=== PATIENT | female | born 1955 | race Caucasian/White ===

== ENCOUNTER 2020-05-17 12:19 | Outpatient (REF) | payer OTHER, SELFPAY ==
--- NOTE | 2020-05-17 | US_ITS ---
EXAMINATION: US THYROID CLINICAL INFORMATION: Single thyroid nodule, left, follow-up. History of right thyroidectomy. COMPARISON: Ultrasound soft tissue head/neck most recent dated 06/14/2017 TECHNIQUE: Linear transducer banks-scale and color Doppler examination with attention to the region of the left thyroid. FINDINGS: SIZE: Measurements of the thyroid lobes and nodules are given in sagittal, anteroposterior and transverse dimensions respectively. Right Thyroid Lobe: Surgically removed. Left Thyroid Lobe: 3.6 x 1.0 x 1.1 cm, volume 2.1 mL. Previously 3.7 x 1.0 x 1.1 cm, volume 2.1 mL. Parenchyma: The gland echotexture is homogeneous. Thyroid vascularity is normal. Isthmus: 0.1 cm in maximum AP dimension. Previously 0.1 cm. RIGHT THYROID LOBE: Surgically removed. ISTHMUS: No nodules. LEFT THYROID LOBE: There is 1 nodule seen. 1. Location: Upper. Size: 0.6 x 0.4 x 0.5 cm. Previous: 0.6 x 0.4 x 0.5 cm. Nodule characteristics: Heterogeneous, smooth margin, no calcification and positive intranodular flow.. NODES: There is a right cervical lymph node that measures 1.3 x 0.3 x 0.9 cm in sagittal, AP and transverse dimension. This demonstrates normal ultrasound morphology and flow. This is similar to previous exam. IMPRESSION: Stable left thyroid nodule.
== END 2020-05-17 12:20 | disposition home or self-care (01) ==
LOC: HO.HMGCX 12:19
PROVIDERS: PCP Family Medicine; Visit Provider Family Medicine
DX: E04.1 Nontoxic single thyroid nodule (principal)
CPT/HCPCS: 76536

== ENCOUNTER 2020-06-09 07:08 | Outpatient (REF) | payer OTHER, SELFPAY ==
[2020-06-09 09:41] LABS: Alanine Aminotransferase 6 U/L (0-31); Aspartate Amino Transferase 20 U/L (5-31)
[2020-06-09 10:02] LABS: Free T4 (Free Thyroxine) 1.26 ng/dL (0.71-1.85); Thyroid Stimulating Hormone 0.34 mIU/mL (0.32-4.0)
[2020-06-10 17:32] LABS: Thyroglobulin 0.7 ng/mL; Thyroglobulin Antibodies <1 IU/mL (< or = 1)
== END 2020-06-09 07:09 | disposition home or self-care (01) ==
LOC: HO.LNP 07:08
PROVIDERS: Visit Provider Family Medicine
DX: C73 Malignant neoplasm of thyroid gland (principal); E03.9 Hypothyroidism, unspecified; E78.00 Pure hypercholesterolemia, unspecified; Z79.899 Other long term (current) drug therapy
CPT/HCPCS: 36415; 82550; 84432; 84439; 84443; 84450; 84460; 86800

== ENCOUNTER 2020-07-17 07:17 | Outpatient (REF) | payer OTHER, SELFPAY ==
--- NOTE | 2020-07-17 | MM_ITS ---
EXAMINATION: MM SCREENING DIGITAL BREAST TOMOSYNTHESIS, BILATERAL CLINICAL INFORMATION: Screening. Asymptomatic. The lifetime risk of breast cancer based on the Tyrer-Cuzick Model is 11%. COMPARISON: Mammography: 06/26/2019, 06/08/2018, 06/02/2017 TECHNIQUE: Digital breast tomosynthesis is performed in both the craniocaudal and mediolateral oblique views along with computer-aided detection (CAD). Synthesized 2D images are generated from the tomosynthesis. FINDINGS: The breasts are almost entirely fatty (ACR BI-RADS breast composition Category a). Background stromal markings are stable. There is stable circumscribed nodule mid upper outer left breast and mid 9:30 o'clock right breast. There is no significant mass or developing density. No architectural abnormality or abnormal calcifications. The axilla are unremarkable. No significant changes. MM/MM tomosynthesis screening BI IMPRESSION: No mammographic evidence of malignancy. ASSESSMENT: BI-RADS 2: Benign RECOMMENDATION: Routine annual mammography screening. This patient's information was entered into a reminder system with a target due date for their next mammogram.
== END 2020-07-17 07:18 | disposition home or self-care (01) ==
LOC: HO.MAMMO 07:17
PROVIDERS: PCP Family Medicine; Visit Provider Family Medicine
DX: Z12.31 Encounter for screening mammogram for malignant neoplasm of breast (principal)
CPT/HCPCS: 77063; 77067

== ENCOUNTER 2020-08-30 08:04 | Day surgery (SDC) | payer OTHER, SELFPAY ==
[2020-07-22 10:39] VITALS: BMI 28.8
--- NOTE | 2020-08-27 10:14 | P.CONAN_ITS ---
Documented by User: Natali Alcazar 08/27/20 10:14 HPI - Anesthesia Eval Consult details Narrative: 65yo F for Colonoscopy PMFSH Past Medical History Medical History Elevated cholesterol GERD (gastroesophageal reflux disease) Hiatal hernia Hypertension Parkinsons disease Psoriatic arthritis Thyroid cancer Surgical History Surgical History Hx of colonoscopy Hx of dilation and curettage Hx of endoscopy Hx of partial thyroidectomy Hx of tonsillectomy Social History Social History Are you a primary acute care physical therapist to a significant other at home: No Do you presently have visiting nurse or other home services: No Smoking Status: Former smoker Smoking Quit Date: 40 yrs ago Use of substances other than those prescribed or required for medical reasons: No Have you been hit, kicked, punched, or otherwise hurt by someone within the past year? If so, by whom?: No Advance Directives: No Advance Directives Information Provided: No Advance Directives on File: No Recently lost weight without trying: No Meds Allergies Allergy/AdvReac Type Severity Reaction Status Date / Time codeine Allergy Unknown Nausea and Uncoded 08/24/20 12:25 Vomiting ibuprofen Allergy Unknown Nightmare Uncoded 08/24/20 12:25 shell fish Allergy Unknown Hives Uncoded 08/24/20 12:25 Home Medications Medication Instructions Recorded Confirmed Type acetaminophen 500 mg PO QID PRN 07/22/20 07/22/20 History atenolol 1 tab PO DAILY 07/22/20 07/22/20 History carbidopa-levodopa 1.5 tab PO QID 07/22/20 07/22/20 History coenzyme Q10 [CoQ-10] 100 mg PO DAILY 07/22/20 07/22/20 History levothyroxine 1 tab PO DAILY 07/22/20 07/22/20 History omeprazole 1 cap PO DAILY 07/22/20 07/22/20 History simvastatin 1 tab PO DAILY 07/22/20 07/22/20 History Exam Exam Date and Time: August 27, 2020 1014 Height,Weight and Vital Signs: Height 5 ft 0.75 in Weight 68.492 kg Assessment and Plan Assessment Anesthesia Assessment: Chart Reviewed Documented by User: Radha Wilson 08/30/20 09:38 PMFSH Past Medical History Medical History Elevated cholesterol GERD (gastroesophageal reflux disease) Hiatal hernia Hypertension Parkinsons disease Psoriatic arthritis Thyroid cancer Family History Family history of problems with anesthesia: No Surgical History Surgical History Hx of colonoscopy Hx of dilation and curettage Hx of endoscopy Hx of partial thyroidectomy Hx of tonsillectomy History of Problems with Anesthesia: Yes (PONV many years ago, never with colonoscopies) Social History Social History Are you a primary acute care physical therapist to a significant other at home: No Do you presently have visiting nurse or other home services: No Smoking Status: Former smoker Smoking Quit Date: 40 yrs ago Use of substances other than those prescribed or required for medical reasons: No Have you been hit, kicked, punched, or otherwise hurt by someone within the past year? If so, by whom?: No Advance Directives: No Advance Directives Information Provided: No Advance Directives on File: No Recently lost weight without trying: No Meds Allergies Allergy/AdvReac Type Severity Reaction Status Date / Time codeine Allergy Unknown Nausea and Uncoded 08/24/20 12:25 Vomiting ibuprofen Allergy Unknown Nightmare Uncoded 08/24/20 12:25 shell fish Allergy Unknown Hives Uncoded 08/24/20 12:25 Home Medications Medication Instructions Recorded Confirmed Type acetaminophen 500 mg PO QID PRN 07/22/20 07/22/20 History atenolol 1 tab PO DAILY 07/22/20 07/22/20 History carbidopa-levodopa 1.5 tab PO QID 07/22/20 07/22/20 History coenzyme Q10 [CoQ-10] 100 mg PO DAILY 07/22/20 07/22/20 History levothyroxine 1 tab PO DAILY 07/22/20 07/22/20 History omeprazole 1 cap PO DAILY 07/22/20 07/22/20 History simvastatin 1 tab PO DAILY 07/22/20 07/22/20 History Exam Exam Date and Time: Vital Signs Temp Pulse Resp BP Pulse Ox 08/30/20 08:46 97.7 F 79 18 151/90 H 99 Airway Mallampati Class: III (Small mouth, overbite) TM Dist: >3cm Neck ROM: Full (Some arthritis) Partial: Upper and Lower Heart: RRR Lungs: CTAB Assessment and Plan Assessment Anesthesia Assessment: Anesthesia Plan Discussed and Chart Reviewed Final Anesthetic Review NPO: Yes ASA Class: II Final Preanesthetic Review: No Changes in Pt Med Stat, Meds/Allgs Chart Reviewed, Consent Obtained/Reviewed and Anes Risks/Benef Reviewed Patient Risk: Low Procedure Risk: Low Assessment/Block/Sedation in SS: Assess/Block/Sedation-SS Anesthetic Plan Anesthetic Plan: MAC: Disposition: Standard PACU
[2020-08-30 08:46] VITALS: BP 151/90; PULSE 79; RESP 18; TEMP 36.5; O2SAT 99; BMI 27.6
[2020-08-30] MEDS: Lactated Ringers 1,000 ML 100 ML IVCONT (09:10)
--- NOTE | 2020-08-30 10:36 | PM.OP ---
Brief Operative Note Date of Service: 08/30/20 Pre-op diagnosis: Screening Post-op diagnosis: other (Diverticulosis, Internal hemorrhoids) Procedure: Colonoscopy to cecum and TI Surgeon: Zia Dowd Anesthesia: MAC Estimated blood loss (mL): 0 Pathology: none sent Condition: stable Disposition: PACU
[2020-08-30 10:37] VITALS: BP 122/79; PULSE 82; RESP 16; TEMP 36.6; O2SAT 96
[2020-08-30 10:52] VITALS: BP 119/72; PULSE 66; RESP 16; TEMP 36.6; O2SAT 100
--- NOTE | 2020-08-30 11:11 | OP_ITS ---
SURGEON: Zia Dowd MD INDICATIONS: The patient presents for evaluation of colorectal cancer screening and personal history of tubular adenoma of the colon. Full consent has been obtained from her for this, including risks of bleeding and perforation. PREOPERATIVE DIAGNOSIS: POSTOPERATIVE DIAGNOSIS: PROCEDURE PERFORMED: Colonoscopy to cecum and terminal ileum. ESTIMATED BLOOD LOSS: COMPLICATIONS: ANESTHESIA: Monitored anesthesia care. ASSISTANTS: SPECIMENS: PREOPERATIVE DIAGNOSES: Colorectal cancer screening and personal history of tubular adenoma of the colon. POSTOPERATIVE DIAGNOSES: Colorectal cancer screening and personal history of tubular adenoma of the colon, sigmoid diverticulosis, and internal hemorrhoids. DESCRIPTION OF PROCEDURE: The patient was placed in the left lateral decubitus position. The digital rectal exam revealed no abnormalities. The Olympus video pediatric colonoscope was entered into the rectum and advanced to the cecum with the assistance of abdominal wall pressure. Once in the cecum, I did identify normal-appearing cecal pouch with appendiceal orifice and a normal-appearing ileocecal valve. The terminal ileum was cannulated and appeared normal. The scope was withdrawn back in the colon. The entire cecum and ileocecal valve appeared normal. The scope was slowly withdrawn assessing all mucosal surfaces carefully. Preparation was excellent. I did not visualize any sign of polyps, colitis, or angiodysplasia. There was a moderate amount of sigmoid diverticulosis. In the rectum, scope was retroflexed visualizing small internal hemorrhoids, but no other pathology. The rectal mucosa appeared normal. The scope was straightened out and withdrawn from the patient. She tolerated the procedure well and was returned to recovery area in stable condition. IMPRESSION: 1. Diverticulosis. 2. Internal hemorrhoids. PLAN: Given her previous history, I would recommend a followup colonoscopy in 5 years for further screening. She will otherwise see me on a p.r.n. basis. MD MARTINEZ Hubbard/TIMOTHY / [id number]
--- NOTE | 2020-08-30 11:50 | HO.POSTANES ---
Post Anesthesia Evaluation Post Anesthesia Evaluation Vital Signs: Vital Signs Temp Pulse Resp BP Pulse Ox 08/30/20 10:52 98 F 66 16 119/72 100 08/30/20 10:37 98 F 82 16 122/79 96 08/30/20 08:46 97.7 F 79 18 151/90 H 99 Anesthesia: Monitored Mental Status: Awake Pain Control: Satisfactory Nausea/Vomiting: None Hydration: Adequate Anesthesia-Related Issues: No Anes. Related Issues
== END 2020-08-30 11:54 | disposition home or self-care (01) ==
PROVIDERS: PCP Family Medicine; Visit Provider Internal Medicine
PROC: 0DJD8ZZ Inspection of Lower Intestinal Tract, Via Natural or Artificial Opening Endoscopic (ICD-10-PCS; CPT 45378; principal; 2020-08-30 09:40)
DX: Z12.11 Encounter for screening for malignant neoplasm of colon (principal); Z86.010 Personal history of colon polyps; K57.30 Diverticulosis of large intestine without perforation or abscess without bleeding; K64.8 Other hemorrhoids; K21.9 Gastro-esophageal reflux disease without esophagitis; G20 Parkinson's disease; I10 Essential (primary) hypertension; L40.50 Arthropathic psoriasis, unspecified; Z85.850 Personal history of malignant neoplasm of thyroid; Z87.891 Personal history of nicotine dependence; Z79.899 Other long term (current) drug therapy; Z88.8 Allergy status to other drugs, medicaments and biological substances
CPT/HCPCS: 45378

== ENCOUNTER 2021-01-10 11:53 | Outpatient (REF) | payer OTHER, SELFPAY ==
[2021-01-10 14:47] LABS: Alanine Aminotransferase < 6 U/L (0-31); Anion Gap 13 (12-20); Blood Urea Nitrogen 17 mg/dL (9-16); Carbon Dioxide 28 mmol/L (22-29); Chloride 105 mmol/L (96-108); Estimated Glomerular Filt Rate > 60; Potassium 4.6 mmol/L (3.3-5.1); Sodium 141 mmol/L (135-145)
[2021-01-10 15:10] LABS: Free T4 (Free Thyroxine) 1.35 ng/dL (0.71-1.85); Thyroid Stimulating Hormone 0.15 uIU/mL (0.32-4.0)
[2021-01-12 06:21] LABS: Thyroglobulin 0.7 ng/mL
== END 2021-01-10 11:54 | disposition home or self-care (01) ==
LOC: HO.HMGCLDS 11:53
PROVIDERS: PCP Family Medicine; Visit Provider Family Medicine
DX: C73 Malignant neoplasm of thyroid gland (principal); I10 Essential (primary) hypertension; E78.00 Pure hypercholesterolemia, unspecified; Z79.899 Other long term (current) drug therapy
CPT/HCPCS: 36415; 80051; 82550; 82565; 84432; 84439; 84443; 84460; 84520

== ENCOUNTER 2021-08-24 08:16 | Outpatient (REF) | payer OTHER, SELFPAY ==
--- NOTE | ~2021-08-24 | MM_ITS ---
EXAMINATION: MM SCREENING DIGITAL BREAST TOMOSYNTHESIS, BILATERAL CLINICAL INFORMATION: Screening. Asymptomatic. The lifetime risk of breast cancer based on the Tyrer-Cuzick Model is 10%. COMPARISON: Mammography: 07/17/2020, 06/26/2019, 06/08/2018 TECHNIQUE: Digital breast tomosynthesis is performed in both the craniocaudal and mediolateral oblique views along with computer-aided detection (CAD). Synthesized 2D images are generated from the tomosynthesis. FINDINGS: The breasts are almost entirely fatty (ACR BI-RADS breast composition Category a). Parenchymal pattern is similar to prior studies. There is no developing density or architectural abnormality. Background stromal markings are stable. The axilla and skin contours are unremarkable. No significant changes. MM/MM tomosynthesis screening BI IMPRESSION: No mammographic evidence of malignancy. ASSESSMENT: BI-RADS 1: Negative RECOMMENDATION: Routine annual mammography screening. This patient's information was entered into a reminder system with a target due date for their next mammogram.
== END 2021-08-24 08:17 | disposition home or self-care (01) ==
LOC: HO.MAMMO 08:16
PROVIDERS: Visit Provider Family Medicine
DX: Z12.31 Encounter for screening mammogram for malignant neoplasm of breast (principal)
CPT/HCPCS: 77063; 77067

== ENCOUNTER 2021-08-30 06:09 | Outpatient (REF) | payer OTHER, SELFPAY ==
[2021-08-30 12:10] LABS: Free T4 (Free Thyroxine) 1.22 ng/dL (0.71-1.85); Thyroid Stimulating Hormone 0.27 uIU/mL (0.32-4.0)
[2021-08-30 12:14] LABS: Anion Gap 11 (12-20); Blood Urea Nitrogen 16 mg/dL (9-16); Carbon Dioxide 29 mmol/L (22-29); Chloride 107 mmol/L (96-108); Estimated Glomerular Filt Rate > 60; Potassium 4.2 mmol/L (3.3-5.1); Sodium 143 mmol/L (135-145)
== END 2021-08-30 06:10 | disposition home or self-care (01) ==
LOC: HO.HMGCLDS 06:09
PROVIDERS: Visit Provider Family Medicine
DX: E03.9 Hypothyroidism, unspecified (principal); I10 Essential (primary) hypertension
CPT/HCPCS: 36415; 80051; 82565; 84439; 84443; 84520

== ENCOUNTER 2021-12-02 10:16 | Outpatient (REF) | payer OTHER, SELFPAY ==
--- NOTE | ~2021-12-02 | XR_ITS ---
EXAMINATION: XR CHEST CLINICAL INFORMATION: Shortness breath. COMPARISON: 07/13/2008 TECHNIQUE: 2 views of the chest were obtained. FINDINGS: There appears to be eventration of the posterior left hemidiaphragm with stomach bubble just below the diaphragm. This was not present on prior study of 07/13/2008. There appears to be some atelectatic change related to this within the left lower lobe. No mediastinal shift is appreciated. Heart normal size. No pneumothorax or pleural effusion. Patient status post previous anterior mediastinal surgery which was not seen on study of 07/13/2008 and question of eventration related to phrenic nerve could be considered. Heart normal size. No pneumothorax or pleural effusion. No evidence of pulmonary edema. XR/XR chest 2V IMPRESSION: Eventration of the posterior left hemidiaphragm that was not present on study of 07/13/2008 as described.
[2021-12-02 11:22] LABS: MANUAL DIFF FLAG NO
[2021-12-02 11:36] LABS: Basophils Percent Auto 0.4 % (0-2); Eosinophils Absolute Auto 0.2 X10*3/uL (0.0-0.4); Eosinophils Percent Auto 2.4 % (0-4); Hematocrit 39.6 % (37.0-47.0); Hemoglobin 12.8 g/dl (12.0-16.0); Imm Gran Abs Auto 0.04 X10*3/uL (0.00-0.03); Imm Gran Pct Auto 0.4 % (0.0-0.4); Lymphocytes Absolute Auto 3.3 X10*3/uL (1.2-4.9); Lymphocytes Percent Auto 35.9 % (20-40); Mean Corpuscular HGB Conc 32.3 g/dl (31.0-35.0); Mean Corpuscular Volume 92.7 fL (80.0-98.0); Monocytes Absolute Auto 0.7 X10*3/uL (0.1-1.2); Monocytes Percent Auto 7.3 % (2-11); Neutrophils Absolute Auto 4.9 x10*3/uL (2.0-8.3); Neutrophils Percent Auto 53.6 % (45-73); Platelet Count 269 X10*3/uL (160-400); Red Blood Count 4.27 X10*6/uL (4.20-5.50); Red Cell Distribution Width 12.9 % (11.0-16.0); White Blood Count 9.2 X10*3/uL (4.8-10.8)
== END 2021-12-02 10:17 | disposition home or self-care (01) ==
LOC: HO.HMGCLDS 10:16
PROVIDERS: Visit Provider Family Medicine
DX: R06.02 Shortness of breath (principal); U07.1 COVID-19
CPT/HCPCS: 36415; 71046; 85025

== ENCOUNTER → 2021-12-16 08:42 | Outpatient (BNVA) | payer OTHER, SELFPAY | PROVIDERS: PCP Family Medicine; Visit Provider Surgery | DX: J98.6 Disorders of diaphragm (principal) | CPT/HCPCS: 99202 ==

== ENCOUNTER 2021-12-19 12:36 | Outpatient (REF) | payer OTHER, SELFPAY ==
--- NOTE | ~2021-12-19 | FL_ITS ---
EXAMINATION: XR FLUOROSCOPY CLINICAL INFORMATION: Sniff test. Evaluate diaphragmatic paralysis. COMPARISON: None TECHNIQUE: Several images were obtained with fluoroscopy in AP and lateral views. FINDINGS: There is elevation of left posterior hemidiaphragm with normal movement on deep inspiration, expiration and sniffing. The right diaphragm is normal. FLUOROSCOPY TIME: 0.6 minutes. DOSE AREA PRODUCT: 7.067 uGy-m2 (microgray-meter squared) FL/FL fluoroscopy <1hr IMPRESSION: Mild eventration of left posterior hemidiaphragm. There is normal one interspace movement of the left hemidiaphragm on deep inspiration and expiration as well as on sniffing. The right and left anterior diaphragm is normal.
== END 2021-12-19 12:37 | disposition home or self-care (01) ==
LOC: HO.XRAY 12:36
PROVIDERS: PCP Family Medicine; Visit Provider Surgery
DX: J98.6 Disorders of diaphragm (principal)
CPT/HCPCS: 76000

== ENCOUNTER 2021-12-26 09:41 | Outpatient (REF) | payer OTHER, SELFPAY ==
--- NOTE | ~2021-12-26 | CT_ITS ---
EXAMINATION: CT CHEST WITHOUT CONTRAST CLINICAL INFORMATION: Disorder of diaphragm COMPARISON: Previous chest x-ray November 2021 TECHNIQUE: Multidetector volumetric CT imaging of the chest was done. Axial MIP volume rendering provided. Sagittal and coronal reformatted images were obtained. This CT examination was performed using dose optimization techniques as appropriate, variously including the following: *Automated exposure control *Adjustment of mA and/or kV according to patient size (this includes techniques or standardized protocols for targeted exams where dose is matched to indication/reason for exam; i.e. extremities or head) *Use of iterative reconstruction technique DLP: 131 mGy-cm FINDINGS: DEV MANAGER: Large esophageal hernia or intrathoracic stomach. LUNGS: There is a large esophageal hernia or intrathoracic stomach. There is atelectasis in the left lower lobe adjacent to the large hernia. The lungs are otherwise clear. MEDIASTINUM: The thyroid gland has been removed. The mediastinum is normal. PLEURA: There is no pleural effusion. No pleural mass or thickening. AXILLA: No lymphadenopathy. UPPER ABDOMEN: There are multiple liver cysts. There is a large esophageal hernia or intrathoracic stomach. OSSEOUS STRUCTURES: Unremarkable. CT/CT chest wo con IMPRESSION: Large esophageal hernia or intrathoracic stomach. Atelectasis of the adjacent left lower lobe. Postthyroidectomy. Multiple liver cysts. Fleischner guidelines were followed.
== END 2021-12-26 09:42 | disposition home or self-care (01) ==
LOC: HO.CT 09:41
PROVIDERS: PCP Family Medicine; Visit Provider Surgery
DX: J98.6 Disorders of diaphragm (principal)
CPT/HCPCS: 71250

== ENCOUNTER 2022-01-06 08:46 | Outpatient (REF) | payer OTHER, SELFPAY ==
--- NOTE | 2022-01-06 11:37 | PFT_ITS ---
Forced vital capacity 70%. FEV1 79%. FEV1/FVC ratio is 86. FEF 25-75 is 107% and MVV 77%. Postbronchodilator therapy, there is no significant improvement. Total lung capacity 71% and residual volume 67%. Diffusion capacity 68%. CONCLUSION: [id number] degree of restrictive pulmonary disorder. No obstructive airway disorder. Clinical correlation recommended. MD MATT Hope/MODL / [id number]
== END 2022-01-06 08:47 | disposition home or self-care (01) ==
LOC: HO.RESP 08:46
PROVIDERS: PCP Family Medicine; Visit Provider Surgery
DX: J98.6 Disorders of diaphragm (principal); R06.00 Dyspnea, unspecified
CPT/HCPCS: 94060; 94729

== ENCOUNTER → 2022-01-20 09:22 | Outpatient (BNVA) | payer OTHER, SELFPAY | PROVIDERS: PCP Family Medicine; Visit Provider Surgery | DX: K44.0 Diaphragmatic hernia with obstruction, without gangrene (principal) | CPT/HCPCS: 99212 ==

== ENCOUNTER 2022-02-03 07:48 | Outpatient (REF) | payer OTHER, MEDICARE, SELFPAY ==
--- NOTE | ~2022-02-03 | FL_ITS ---
PROCEDURE: FL BARIUM SWALLOW CLINICAL INFORMATION: Diaphragmatic hernia without obstruction. COMPARISON: None TECHNIQUE: Barium swallow examination is performed using fluoroscopic evaluation in addition to multiple fluoroscopic spot views. The patient is imaged both upright and prone and using both thick and thin sulfate along with effervescent granules. Fluoroscopy time: 1.1 minutes DAP: 9.722 Gy-cm2 Images: 39 FINDINGS: Following oral administration of thick barium and effervescent granules in upright view there is normal propagation of bolus from the oral cavity through the pharynx, esophagus into stomach without any evidence of obstruction, narrowing or stricture. On administration of barium-coated turkey there is normal oral mastication with propagation of bolus through the pharynx and esophagus into stomach. No laryngeal penetration or aspiration seen. FL/FL barium swallow IMPRESSION: Unremarkable barium swallow exam in upright view.
== END 2022-02-03 07:49 | disposition home or self-care (01) ==
LOC: HO.XRAY 07:48
PROVIDERS: PCP Family Medicine; Visit Provider Surgery
DX: K44.0 Diaphragmatic hernia with obstruction, without gangrene (principal)
CPT/HCPCS: 74220

== ENCOUNTER 2022-02-08 10:27 | Day surgery (SDC) | payer OTHER, MEDICARE, SELFPAY ==
[2022-01-30 15:17] VITALS: BMI 29.8
[2022-02-08 10:59] VITALS: BMI 27.8
[2022-02-08 11:02] VITALS: BP 122/74; PULSE 69; RESP 16; TEMP 36.3; O2SAT 99
[2022-02-08] MEDS: Lactated Ringers 1,000 ML 100 ML IVCONT (11:12)
[2022-02-08 11:48] VITALS: BP 90/47; PULSE 71; RESP 16; TEMP 36.3; O2SAT 99
--- NOTE | 2022-02-08 11:51 | P.BOP_ITS ---
Brief Operative Note Date of Service: 02/08/22 Pre-op diagnosis: GERD, Hiatal hernia Post-op diagnosis: other (Same, unable to advance to pylorus due to her anatomy) Procedure: Upper endoscopy Surgeon: Zia Dowd Anesthesia: MAC Was an Fishing Tool Technician Oil Well used for this Procedure?: No Estimated blood loss (mL): 0 Pathology: none sent Condition: stable Disposition: PACU
[2022-02-08 12:03] VITALS: BP 94/58; PULSE 70; RESP 16; O2SAT 99
[2022-02-08 12:19] VITALS: BP 110/69; PULSE 71; RESP 16; TEMP 36.3; O2SAT 97
--- NOTE | 2022-02-08 21:21 | OP_ITS ---
SURGEON: Zia Dowd MD INDICATIONS: The patient presents for evaluation of a large hiatal hernia with component of intrathoracic stomach and/or a paraesophageal hernia, and reflux. Full consent has been obtained from her for this, including risks of bleeding and perforation. PREOPERATIVE DIAGNOSIS: POSTOPERATIVE DIAGNOSIS: PROCEDURE PERFORMED: Upper endoscopy. ESTIMATED BLOOD LOSS: COMPLICATIONS: ANESTHESIA: Monitored anesthesia care. ASSISTANTS: SPECIMENS: PREOPERATIVE DIAGNOSES: Intrathoracic stomach and/or Paraesophageal hernia and gastroesophageal reflux. POSTOPERATIVE DIAGNOSES: Intrathoracic stomach and/or Paraesophageal hernia and gastroesophageal reflux, unable to advance to pylorus due to her anatomy, but normal mucosa noted in the proximal stomach and esophagus. DESCRIPTION OF PROCEDURE: The patient was placed in the left lateral decubitus position. The Olympus video gastroscope was passed in the posterior oropharynx and upper esophagus under direct vision. The scope was passed slowly to the distal esophagus. The gastroesophageal junction appeared at 28 cm and appeared normal. There was no esophagitis, stricture, nor evidence of Wei mucosa. The scope entered into the stomach. There was a large hiatal hernia noted with normal mucosa. I did spend some time trying to advance to the pylorus, but this was not possible due to looping of the scope and the scope kept retroflexing within the large hernia. The retroflexed view of the stomach was normal as well. Again, the hiatal hernia mucosa was normal. After being unable to advance to the pylorus, I then withdrew the scope back into the esophagus. The esophageal mucosa appeared normal. The scope was withdrawn from the patient. She tolerated the procedure well and was returned to the recovery area in stable condition. IMPRESSION: Large hiatal hernia with inability to advance the pylorus due to her anatomy. Normal mucosa of esophagus and hiatal hernia/proximal stomach PLAN: The patient will follow up with Dr. Correa for her scheduled surgery next week. She will see me again as needed. This has been discussed with her sister. MD MARTINEZ Hubbard/TIMOTHY / [id number] MTDD
== END 2022-02-08 12:44 | disposition home or self-care (01) ==
PROVIDERS: PCP Family Medicine; Visit Provider Internal Medicine
PROC: 0DJ08ZZ Inspection of Upper Intestinal Tract, Via Natural or Artificial Opening Endoscopic (ICD-10-PCS; CPT 43235; principal; 2022-02-08 12:20)
DX: K44.9 Diaphragmatic hernia without obstruction or gangrene (principal); R93.3 Abnormal findings on diagnostic imaging of other parts of digestive tract; K21.9 Gastro-esophageal reflux disease without esophagitis; J98.6 Disorders of diaphragm; I10 Essential (primary) hypertension; L40.50 Arthropathic psoriasis, unspecified; G20 Parkinson's disease; E89.0 Postprocedural hypothyroidism; Z85.850 Personal history of malignant neoplasm of thyroid; Z87.891 Personal history of nicotine dependence; E78.5 Hyperlipidemia, unspecified; Z79.899 Other long term (current) drug therapy; Z88.8 Allergy status to other drugs, medicaments and biological substances
CPT/HCPCS: 43235

== ENCOUNTER 2022-03-08 11:30 | Outpatient (REF) | payer OTHER, MEDICARE, SELFPAY ==
[2022-03-08 14:35] LABS: Free T4 (Free Thyroxine) 1.67 ng/dL (0.71-1.85); Thyroid Stimulating Hormone 0.06 uIU/mL (0.32-4.0)
[2022-03-08 15:09] LABS: Anion Gap 15 (12-20); Blood Urea Nitrogen 14 mg/dL (9-16); Carbon Dioxide 27 mmol/L (22-29); Chloride 104 mmol/L (96-108); Estimated Glomerular Filt Rate > 60; Potassium 4.3 mmol/L (3.3-5.1); Sodium 142 mmol/L (135-145)
== END 2022-03-08 11:31 | disposition home or self-care (01) ==
LOC: HO.HMGCLDS 11:30
PROVIDERS: PCP Family Medicine; Visit Provider Family Medicine
DX: I10 Essential (primary) hypertension (principal); E03.9 Hypothyroidism, unspecified
CPT/HCPCS: 36415; 80051; 82565; 84439; 84443; 84520

== ENCOUNTER 2022-08-31 07:21 | Outpatient (REF) | payer OTHER, SELFPAY ==
--- NOTE | ~2022-08-31 | MM_ITS ---
EXAMINATION: MM SCREENING DIGITAL BREAST TOMOSYNTHESIS, BILATERAL CLINICAL INFORMATION: Screening. Asymptomatic. The lifetime risk of breast cancer based on the Tyrer-Cuzick Model is 7%. COMPARISON: Mammography: 08/24/2021, 07/17/2020, 06/26/2019 TECHNIQUE: Digital breast tomosynthesis is performed in both the craniocaudal and mediolateral oblique views along with computer-aided detection (CAD). Synthesized 2D images are generated from the tomosynthesis. FINDINGS: The breasts are almost entirely fatty (ACR BI-RADS breast composition Category a). Background stromal and fibroglandular densities are stable. There is no significant mass or architectural abnormality or abnormal calcifications. There is stable small smooth nodularity bilateral outer breasts, likely intraparenchymal nodes. The axilla and skin contours are unremarkable. No significant changes. MM/MM tomosynthesis screening BI IMPRESSION: No mammographic evidence of malignancy. ASSESSMENT: BI-RADS 2: Benign RECOMMENDATION: Routine annual mammography screening. This patient's information was entered into a reminder system with a target due date for their next mammogram.
== END 2022-08-31 07:22 | disposition home or self-care (01) ==
LOC: HO.MAMMO 07:21
PROVIDERS: Visit Provider Family Medicine
DX: Z12.31 Encounter for screening mammogram for malignant neoplasm of breast (principal)
CPT/HCPCS: 77063; 77067

== ENCOUNTER 2023-01-24 06:12 | Outpatient (REF) | payer OTHER, SELFPAY ==
[2023-01-24 12:08] LABS: Alanine Aminotransferase 8 U/L (0-31); Albumin Level 3.9 g/dL (3.5-5.0); Alkaline Phosphatase 67 U/L (39-117); Anion Gap 14 (12-20); Aspartate Amino Transferase 17 U/L (5-31); Bilirubin Direct 0.1 mg/dL (0.0-0.5); Bilirubin Total 0.5 mg/dL (0.0-1.0); Blood Urea Nitrogen 20 mg/dL (9-16); Carbon Dioxide 26 mmol/L (22-29); Chloride 108 mmol/L (96-108); Cholesterol 163 mg/dL; Estimated Glomerular Filt Rate > 60; Glucose Fasting 97 mg/dL (60-99); HDL Cholesterol 50 mg/dL; LDL Cholesterol Calculated 92 mg/dl; Potassium 3.9 mmol/L (3.3-5.1); Sodium 144 mmol/L (135-145); Total Protein 6.8 g/dL (6.5-8.0); Triglycerides 109 mg/dL
[2023-01-26 09:44] LABS: Thyroglobulin 0.8 ng/mL
== END 2023-01-24 06:13 | disposition home or self-care (01) ==
LOC: HO.HMGCLDS 06:12
PROVIDERS: PCP Family Medicine; Visit Provider Family Medicine
DX: I10 Essential (primary) hypertension (principal); E78.00 Pure hypercholesterolemia, unspecified; C73 Malignant neoplasm of thyroid gland; Z79.899 Other long term (current) drug therapy
CPT/HCPCS: 36415; 80051; 80061; 80076; 82550; 82565; 82947; 84432; 84520

== ENCOUNTER 2023-08-25 11:00 | Outpatient (REF) | payer OTHER, SELFPAY ==
[2023-08-25 13:57] LABS: Alanine Aminotransferase 7 U/L (0-31); Anion Gap 11 (12-20); Aspartate Amino Transferase 20 U/L (5-31); Blood Urea Nitrogen 17 mg/dL (9-16); Carbon Dioxide 29 mmol/L (22-29); Chloride 109 mmol/L (96-108); Potassium 4.2 mmol/L (3.3-5.1); Sodium 145 mmol/L (135-145)
[2023-08-25 14:11] LABS: Free T4 (Free Thyroxine) 1.29 ng/dL (0.71-1.85); Thyroid Stimulating Hormone 1.22 uIU/mL (0.32-4.0)
== END 2023-08-25 11:01 | disposition home or self-care (01) ==
LOC: HO.HMGCLDS 11:00
PROVIDERS: PCP Family Medicine; Visit Provider Family Medicine
DX: I10 Essential (primary) hypertension (principal); E03.9 Hypothyroidism, unspecified; E78.00 Pure hypercholesterolemia, unspecified; Z79.899 Other long term (current) drug therapy
CPT/HCPCS: 36415; 80051; 82550; 84439; 84443; 84450; 84460; 84520

== ENCOUNTER 2023-09-07 07:20 | Outpatient (REF) | payer OTHER, SELFPAY | END 2023-09-07 07:21 | disposition home or self-care (01) | LOC: HO.MAMMO 07:20 | PROVIDERS: PCP Family Medicine; Visit Provider Family Medicine | DX: Z12.31 Encounter for screening mammogram for malignant neoplasm of breast (principal) | CPT/HCPCS: 77063; 77067 ==

== ENCOUNTER → 2023-09-07 07:30 | Outpatient (BNV) | payer OTHER, SELFPAY | PROVIDERS: PCP Family Medicine; Visit Provider Radiology Diagnostic Radiology | DX: Z12.31 Encounter for screening mammogram for malignant neoplasm of breast (principal) | CPT/HCPCS: 77063; 77067 ==

== ENCOUNTER 2024-01-03 06:10 | Outpatient (REF) | payer OTHER, SELFPAY ==
[2024-01-03 11:16] LABS: Thyroid Stimulating Hormone 1.03 uIU/mL (0.32-4.0)
== END 2024-01-03 06:11 | disposition home or self-care (01) ==
LOC: HO.HMGCLDS 06:10
PROVIDERS: PCP Family Medicine; Visit Provider Family Medicine
DX: C73 Malignant neoplasm of thyroid gland (principal)
CPT/HCPCS: 36415; 84443

== ENCOUNTER 2024-05-08 10:20 | Outpatient (REF) | payer OTHER, SELFPAY ==
[2024-05-08 13:29] LABS: Anion Gap 11 (12-20); Blood Urea Nitrogen 22 mg/dL (9-16); Carbon Dioxide 29 mmol/L (22-29); Chloride 108 mmol/L (96-108); Estimated Glomerular Filt Rate > 60; Potassium 4.3 mmol/L (3.3-5.1); Sodium 144 mmol/L (135-145)
[2024-05-08 13:48] LABS: Thyroid Stimulating Hormone 0.54 uIU/mL (0.32-4.0)
== END 2024-05-08 10:21 | disposition home or self-care (01) ==
LOC: HO.HMGCLDS 10:20
PROVIDERS: PCP Family Medicine; Visit Provider Family Medicine
DX: I10 Essential (primary) hypertension (principal); E03.9 Hypothyroidism, unspecified
CPT/HCPCS: 36415; 80051; 82565; 84439; 84443; 84520

== ENCOUNTER 2024-09-16 07:18 | Outpatient (REF) | payer OTHER, SELFPAY | END 2024-09-16 07:19 | disposition home or self-care (01) | LOC: HO.MAMMO 07:18 | PROVIDERS: PCP Family Medicine; Visit Provider Family Medicine | DX: Z12.31 Encounter for screening mammogram for malignant neoplasm of breast (principal) | CPT/HCPCS: 77063; 77067 ==

== ENCOUNTER → 2024-09-16 07:30 | Outpatient (BNV) | payer OTHER, SELFPAY | PROVIDERS: PCP Family Medicine; Visit Provider Internal Medicine | DX: Z12.31 Encounter for screening mammogram for malignant neoplasm of breast (principal) | CPT/HCPCS: 77063; 77067 ==

== ENCOUNTER 2024-11-24 09:15 | Outpatient (REF) | payer OTHER, SELFPAY ==
--- OUTSIDE RECORDS SUMMARY | 2024-11-24 09:20 | XMS_ITS | Clinical Summary ---
Author Organization [facility] Address [address] [place] [address] Care Team Providers Care Manager Bank Name Role Phone Jim Jimenez Primary Care Provider [phone] Allergies Active Allergy Reactions Criticality Noted Date Comments Codeine Phosphate Vomiting 01/09/2024 Jqkybno-Aqwcjxogkj-Siu-Caff Nausea,Vomiting 12/2020 Shellfish Derived Hives 07/02/2019 Medications levothyroxine (SYNTHROID, LEVOTHROID) 75 mcg tablet 06/18/2019 Active simvastatin (ZOCOR) 40 mg tablet Take 80 mg by mouth at bed time. 06/18/2019 Active ubidecarenone (coenzyme Q10) 100 mg tablet Take 200 mg by mouth once a day. Active metoprolol succinate XL (TOPROL XL) 50 mg tablet SMARTSI Tablet(s) By Mouth Every Night 04/25/2023 Active carbidopa-levodo pa ER/CR (SINEMET ER/CR) 50-200 mg tablet Take 1 tablet by mouth 5 times a day. 150 tablet 11 07/09/2024 5 Active Active Problems Problem Noted Date Diagnosed Date Dystonia 06/13/2023 Idiopathic Parkinson's disease 07/02/2019 Immunizations Immunization Administration Dates Next Due COVID-19, Pfizer, mRNA, Biva lent Booster, PF, 30 mcg/0.3 mL dose (for age 12 y and up) 05/12/2022 Covid-19, Pfizer, mRNA, Summit valent, PF 30 mcg/0.3 mL dose (for ages 12 and older) 03/26/2021,08/24/2020,08/03/2020 Covid-19, Pfizer, mRNA, Summit valent, PF, 30 mcg/0.3 mL dose, adam-sucrose (COMIRNATY)(for ages 12 and older) 11/24/2021 Covid-19, Pfizer, mRNA, Adam -sucrose Vaccine, PF, 30 mcg/0.3 mL (for age 12 y and up) 05/26/2023 Family History Relation Name Status Comments Father Mother Social History Tobacco Use Types Packs/Day Years Used Date Smoking Tobacco: Former Cigarettes Q uit: 07/02/1984 Smokeless Tobacco: Never Tobacco Cessation:Counseling Given: Not Answered Alcohol Use Standard Drinks/Week Comments Not Currently 0 (1 standard drink = 0.6 oz pur e alcohol) Comments Unknown Sex and Gender Information Value Date Recorded Sex Assigned at Female 12/11/2019 11:00 AM EDT Legal Sex Female 4:17 AM EDT Gender Identity Female 12/11/2019 11:00 AM EDT Sexual Orientation Straight 12/11/2019 11 :01 AM EDT Last Filed Vital Signs Vital Sign Reading Time Taken Comments Blood Pressure 124/84 07/09/2024 2:33 PM EST Pulse 88 07/09/2024 2:33 PM EST Temperature 36.2 ??C (97.1 ??F) 07/09/2024 2:22 PM ES T Respiratory Rate 18 07/09/2024 2:22 PM EST Oxygen Saturation - - Inhaled Oxygen Concentration - - Weight 74.2 kg (163 lb 9.6 oz) 07/09/2024 2:22 P M EST Height 152.4 cm (5') 01/09/2024 1:25 PM EDT Body Mass Index 31.95 01/09/2024 1:25 PM EDT Plan of Treatment Upcoming Encounters Date Type Department Care Team (Late st Contact Info) Description 01/07/2025 1:00 PM EDT Office Visit [facility] [address] [place] [id number] Jacquie Dalton MD [address] [place] [address] [place] [address] Health Maintenance Due Date Last Done Comments Cologuard 1955 Colon Cancer Screening 1956 Colonoscopy 1956 FOBT / Fit Test 1956 Hepatitis C Screening 1956 Sigmoidoscopy 1956 DTaP,Tdap,and Td Vaccines (1 - Tdap) 1978 Mammogram 1996 Osteoporosis Screening 2006 Pneumococcal Vaccine: 50+ Years (1 of 1 - PCV) 2006 Zoster Vaccines (1 of 2) 2006 Alcohol/Substance Use Screening 08/06/2024 Depression Screening and Follow-Up 08/06/2024 Health Care Proxy Review 08/06/2024 Social Drivers of Health Annual Screening 08/06/2024 COVID-19 Vaccine ( season) 2024 04/26/2024, 05/26/2023, 05/12/2022, Additional history exists RSV Vaccine (60+ years old and patients) (1 - 1-dose 75+ series) 2031 Influenza Vaccine Completed 04/26/2024, , 05/12/2022, Additional history exists Hepatitis B Vaccines Aged Out No long er eligible based on patient's age to complete this topic Insurance MEDICARE [facility] Care Teams Manager Bank Relationship Specialty Start Date End Date Jim Jimenez [address] [place] [address] [place] [address] PCP - General Internal Medicine 04/29/19
--- OUTSIDE RECORDS SUMMARY | 2024-11-24 09:20 | XMS_ITS | Encounter Summary ---
Author Organization [facility] Address [address] [place] [address] Care Team Providers Care Professor Of Geography Name Role Phone Jim Jimenez Primary Care Provider [phone] Encounter Details Date Type Department Care Team (Late st Contact Info) Description 04/20/2020 myChart Message [facility] [address] [place] [address] Marce Gray MD [address] [place] [address] [place] [address] RE: Non-Urgent Medical Question Social History Tobacco Use Types Packs/Day Years Used Date Smoking Tobacco: Former Cigarettes Q uit: 07/02/1984 Smokeless Tobacco: Never Alcohol Use Standard Drinks/Week Comments Not Currently 0 (1 standard drink = 0.6 oz pur e alcohol) Comments Unknown Sex and Gender Information Value Date Recorded Sex Assigned at Female 12/11/2019 11:00 AM EDT Legal Sex Female 4:17 AM EDT Gender Identity Female 12/11/2019 11:00 AM EDT Sexual Orientation Straight 12/11/2019 11 :01 AM EDT documented as of this encounter Plan of Treatment Upcoming Encounters Date Type Department Care Team (Late st Contact Info) Description 01/07/2025 1:00 PM EDT Office Visit [facility] [address] [place] [address] Jacquie Dalton MD [address] [place] [address] [place] [address] documented as of this encounter Visit Diagnoses Not on filedocumented in this encounter Care Teams Professor Of Geography Relationship Specialty Start Date End Date Jim Jimenez [address] [place] [address] [place] [address] PCP - General Internal Medicine 04/29/19 documented as of this encounter
--- OUTSIDE RECORDS SUMMARY | 2024-11-24 09:20 | XMS_ITS | Referral Summary ---
Author Organization [facility] Address [address] [place] [address] Care Team Providers Care Auxiliary Powerplant Operator Name Role Phone Jim Jimenez Primary Care Provider [phone] Allergies Active Allergy Reactions Criticality Noted Date Comments Codeine Phosphate Vomiting 01/09/2024 Ozzpmna-Viqkvyoevr-Qyh-Caff Nausea,Vomiting 12/2020 Shellfish Derived Hives 07/02/2019 Medications [...] y and up) 05/12/2022 Covid-19, Pfizer, mRNA, Garfield valent, PF 30 mcg/0.3 mL dose (for ages 12 and older) 03/26/2021,08/24/2020,08/03/2020 Covid-19, Pfizer, mRNA, Garfield valent, PF, 30 mcg/0.3 mL dose, adam-sucrose (COMIRNATY)(for ages 12 and older) 11/24/2021 Covid-19, Pfizer, mRNA, Adam -sucrose Vaccine, PF, 30 mcg/0.3 mL (for age 12 y and up) 05/26/2023 Social History Tobacco Use Types Packs/Day Years [...] Description 01/07/2025 1:00 PM EDT Office Visit [facility] Neu[facility] [address] [place] [address] [phone] Jacquie Dalton MD [address] [place] [address] [place] [address] Insurance MEDICARE [facility] Care Teams Auxiliary Powerplant Operator Relationship Specialty Start Date End Date Jim Jimenez [address] [place] [address] [place] [address] PCP - General Internal Medicine 04/29/19
--- OUTSIDE RECORDS SUMMARY | 2024-11-24 09:20 | XMS_ITS | Encounter Summary ---
Author Organization [facility] Address [address] [place] [address] Care Team Providers Care Project Scheduler Name Role Phone Jim Jimenez Primary Care Provider [phone] Encounter Details Date Type Department Care Team (Late st Contact Info) Description 04/25/2020 Orders Only [facility] Interventional Radiology [address] [place] [address] Jaleesa Nguyen MD [address] [place] [phone] Social History Tobacco Use Types Packs/Day Years [...] Description 01/07/2025 1:00 PM EDT Office Visit [facility] Neurology Clinic [address] [place] [address] Jacquie Dalton MD [address] [facility] Internal Medicine [place], [place] [phone] documented as of this encounter Visit Diagnoses Not on filedocumented in this encounter Care Teams Project Scheduler Relationship Specialty Start Date End Date Jim Jimenez [address] [place] [address] [place] [address] PCP - General Internal Medicine 04/29/19 documented as of this encounter
--- OUTSIDE RECORDS SUMMARY | 2024-11-24 09:21 | XMS_ITS | Encounter Summary ---
Author Organization [facility] Address [address] [place] [address] Care Team Providers Care Inspector Rubber Stamp Die Name Role Phone JimenezJim Primary Care Provider [phone] Encounter Details Date Type Department Care Team (Late st Contact Info) Description 05/10/2022 myChart Message [facility] Neurology Clinic [address] [place] [address] Marce Gray MD [address] [place] [address] [place] [address] Follow up to med change Social History Tobacco Use Types Packs/Day Years [...] Description 01/07/2025 1:00 PM EDT Office Visit [facility] Neurology Clinic [address] [place] [address] Jacquie Dalton MD [address] [place] [address] Internal Medicine [place], [place] [phone] documented as of this encounter Visit Diagnoses Not on filedocumented in this encounter Care Teams Inspector Rubber Stamp Die Relationship Specialty Start Date End Date Jim Jimenez [address] [place] [address] [place] [address] PCP - General Internal Medicine 04/29/19 documented as of this encounter
--- OUTSIDE RECORDS SUMMARY | 2024-11-24 09:21 | XMS_ITS | Encounter Summary ---
Author Organization [facility] Address [address] [place] [address] Care Team Providers Care Car Changer Name Role Phone Jim Jimenez Primary Care Provider [phone] Encounter Details Date Type Department Care Team (Late st Contact Info) Description 08/03/2022 myChart Message [facility] Neurology Clinic [address] [place] [id number] Marce Gray MD [address] [place] [address] [place] [address] Clinical trials Social History Tobacco Use Types Packs/Day Years [...] Description 01/07/2025 1:00 PM EDT Office Visit [facility] Neurology [facility] [address] [place] [address] Jacquie Dalton MD [address] [place] [address] Internal Medicine [place], [place] [phone] documented as of this encounter Visit Diagnoses Not on filedocumented in this encounter Care Teams Car Changer Relationship Specialty Start Date End Date Jim Jimenez [address] [place] [address] [place] [address] PCP - General Internal Medicine 04/29/19 documented as of this encounter
--- OUTSIDE RECORDS SUMMARY | 2024-11-24 09:21 | XMS_ITS | Encounter Summary ---
Author Organization [facility] Address [address] [place] [address] Care Team Providers Care Aviation Boatswain'S Mate Name Role Phone Jim Jimenez Primary Care Provider [phone] Encounter Details Date Type Department Care Team (Late st Contact Info) Description 04/27/2022 myChart Message [facility] Neurology Clinic [address] [place] [address] Marce Gray MD [address] [place] [address] [place] [address] Off periods Social History Tobacco Use Types Packs/Day Years [...] Description 01/07/2025 1:00 PM EDT Office Visit [facility] Neurology [facility] [address] [place] [address] Jacquie Dalton MD [address] [place] [address] Internal Medicine [place], [place] [phone] documented as of this encounter Visit Diagnoses Not on filedocumented in this encounter Care Teams Aviation Boatswain'S Mate Relationship Specialty Start Date End Date Jim Jimenez [address] [place] [address] [place] [address] PCP - General Internal Medicine 04/29/19 documented as of this encounter
--- OUTSIDE RECORDS SUMMARY | 2024-11-24 09:21 | XMS_ITS | Patient Health Record ---
Author Organization [facility] Address [address] [facility] [place] [address] Care Team Providers Care Scrap Separator Name Role Phone Jim Jimenez MD Primary Care Provider Unavailab Halle Mistry Unavailable [phone] Allergies Allergen (clinical drug ingredient) Drug/Non Drug Allergy documented on EMR Reaction Allergy Type Onset Date Status Shrimp Flavor Unknown Drug Allergy Act regan codeine Codeine Unknown Drug Allergy Active Results Component Value Reference Range Notes X ray : Foot, left 3V Reviewed date:05/14/2024 03:16:03 PM Interpretation:See Examination above Performing Lab: Notes/Report: See Examination above X ray : Foot, left 3V Reviewed date:06/10/2024 12:13:58 PM Interpretation:See Examination above Performing Lab: Notes/Report: See Examination above Reason For Referral No Information Medications Medication SIG (Take, Route, Fr equency, Duration) Notes Start Date End Date Status Zocor 40 MG 1 tablet in the even ing Orally Once a day Active Synthroid Active Sinemet Active Metoprolol Succinate Active Social History Tobacco Use: Social History Observation Description Date Details (start date - stop date) Never Smoker NA - NA Alcohol Screen Question Answer Notes Did you have a drink containing alcohol in the p ast year? No Points 0 Interpretation Negative Tobacco use other than smoking: Question Answer Notes Are you an other tobacco user? No Tobacco Control (Standard) Question Answer Notes Tobacco use: Nonsmoker Problems Problem Type SNOMED Code ICD Code Onset Dates Problem Status W/U Status Risk Notes Problem Acquired cavus deformity of right foot (disorder) (8419899567397 102) Cavus deformity of right foot (Q66.71) Active confirmed Vital Signs Blood pressure diastolic 70 mm Hg 08/13/2024 Height 5ft in 08/13/2024 Blood pressure systolic 112 mm Hg 08/13/2024 Weight 160 lbs 08/13/2024 BMI 31.24 kg/m2 08/13/2024 Encounters Encounter Location Date Provider Diagnosis [address] [address] 05/14/2024 Halle Black Peroneal tendinitis of left lower extremity M76.72 ; Stress fracture of left foot, initial encounter M84.375A ; Localized edema R60.0 ; Parkinson's disease with fluctuating manifestations, unspecified whether dyskinesia present G20.A2 and Pain in left foot M79.[address] [address] 06/10/2024 Halle Black Peroneal tendinitis of left lower extremity M76.72 ; Localized edema R60.0 ; Parkinson's disease with fluctuating manifestations, unspecified whether dyskinesia present G20.A2 ; Pain in left foot M79.672 and Stress fracture of left foot with routine healing, subsequent encounter M84.375D [address] [address] 08/13/2024 Halle Black Peroneal tendinitis of left lower extremity M76.72 ; Stress fracture of left foot with routine healing, subsequent encounter M84.375D ; Localized edema R60.0 ; Parkinson's disease with fluctuating manifestations, unspecified whether dyskinesia present G20.A2 and Pain in left foot M79.672 [facility] [address] [place] [address] 05/12/2024 Halle Black [address] [address] 06/10/2024 Halle Black Assessments Encounter Date Diagnosis (ICD Code) Assessment Notes Treatment Notes Treatment Clinical Notes Section Notes 05/14/2024 Peroneal tendinitis of left lower extremity (ICD-10 - M76.72) 05/14/2024 Stress fracture of left foot, initial encounter (ICD-10 - M84.375A) 06/10/2024 Localized edema (ICD-10 - R60.0) 06/10/2024 Peroneal tendinitis of left lower extremity (ICD-10 - M76.72) 08/13/2024 Peroneal tendinitis of left lower extremity (ICD-10 - M76.72) 08/13/2024 Stress fracture of left foot with routine healing, subsequent encounter (ICD-10 - M84.375D) 06/10/2024 Parkinson's disease with fluctuating manifestations, unspecified whether dyskinesia present (ICD-10 - G20.A2) 08/13/2024 Localized edema (ICD-10 - R60.0) 05/14/2024 Localized edema (ICD-10 - R60.0) 05/14/2024 Parkinson's disease with fluctuating manifestations, unspecified whether dyskinesia present (ICD-10 - G20.A2) 06/10/2024 Pain in left foot (ICD-10 - M79.672) 08/13/2024 Parkinson's disease with fluctuating manifestations, unspecified whether dyskinesia present (ICD-10 - G20.A2) 08/13/2024 Pain in left foot (ICD-10 - M79.672) 06/10/2024 Stress fracture of left foot with routine healing, subsequent encounter (ICD-10 - M84.375D) 05/14/2024 Pain in left foot (ICD-10 - M79.672) Plan Of Treatment No Information Insurance Providers Payer Name Payer Address Payer Phone Subscriber Number Group Number Insured Name Patient Relationship to Insured Coverage Start Date Coverage End Date [facility] [address] [place] [address] [id number] Wanda Handy Self - patient is the insured Medical (General) History Medical History History ICD Code Arthritis High Blood Pressure Parkinsons disease Psoriasis/eczema thyroid Measles Mumps Chicken pox Surgical History Surgery Date(Month/Year) thyroidectomy 2011 Gastropexy 2021
--- OUTSIDE RECORDS SUMMARY | 2024-11-24 09:21 | XMS_ITS | Encounter Summary ---
Author Organization [facility] Address [address] [place] [address] Care Team Providers Care Volunteer Recruiter Name Role Phone Jim Jimenez Primary Care Provider [phone] Reason for Visit * Reason Onset Date Comments Study call with 06/13/2021 Encounter Details Date Type Department Care Team ([facility] st Contact Info) Description 06/13/2021 Telephone [facility] Central Scheduling Department [address] [place] [address] Neurology, Unv [address] [place] [address] Study call with Social History Tobacco Use Types Packs/Day Years [...] AM EDT documented as of this encounter Miscellaneous Notes * Telephone Encounter - Lissy Verduzco - 06/13/2021 9:49 AM EST kamini Perez Thank you * Telephone Encounter - Maria Ines Driver - 06/13/2021 8:26 AM EST PT stated will be calling her today 06/13/2021 at 1pm for a phone call study on parkinson'sand would like for prov to call [phone] documented in this encounter Plan of Treatment Upcoming Encounters Date Type Department Care Team (Late st Contact Info) Description 01/07/2025 1:00 PM EDT Office Visit [facility] [address] [place], [place] [phone] Jacquie Dalton MD [address] [place] [address] Internal Medicine [place], [place] [phone] documented as of this encounter Visit Diagnoses Not on filedocumented in this encounter Care Teams Volunteer Recruiter Relationship Specialty Start Date End Date Jim Jimenez [address] [place] [address] [place] [address] PCP - General Internal Medicine 04/29/19 documented as of this encounter
--- OUTSIDE RECORDS SUMMARY | 2024-11-24 09:21 | XMS_ITS ---
Author Organization [facility] Address [address] [place] [address] Care Team Providers Care Raimann Machine Operator Name Role Phone Tony REDDY, Jim Primary Care Provider Unavailab Halle Mistry Unavailable [phone] REASON FOR VISIT buy pedag 35 Encounters Encounter Location Date Provider Diagnosis [address] [address] 06/10/2024 Halle Saucedo Plan Of Treatment No Information Progress Notes * Wanda HAWTHORNE MDOB:1955 (68 yo F)Acc No.[id number]:06/10/2024 Patient:?Wanda Hawthorne :1955???Age:68 Y???Sex:Female Address:[address] [place] [address]., [address], [place] [address] * true * Date:? Generated for Rossy latif/Delia/eTransmitting on:?11/24/2024 09:20 AM EDT
--- OUTSIDE RECORDS SUMMARY | 2024-11-24 09:21 | XMS_ITS ---
Author Organization [facility] Address [address] [facility] [place] [address] Care Team Providers Care Security System Installer Name Role Phone Tony REDDY, Jim Primary Care Provider Unavailab albino Halle Saucedo Unavailable [phone] Allergies Allergen (clinical drug ingredient) Drug/Non Drug Allergy documented on EMR Reaction Allergy Type Onset Date Status Shrimp Flavor Unknown Drug Allergy Act regan codeine Codeine Unknown Drug Allergy Active Results Component Value Reference Range Notes X ray : Foot, left 3V Reviewed date:06/10/2024 12:13:58 PM Interpretation:See Examination above Performing Lab: Notes/Report: See Examination above REASON FOR VISIT Foot pain Medications Medication SIG (Take, Route, Fr equency, Duration) Notes Start Date End Date Status Synthroid Active Zocor 40 MG 1 tablet in the even ing Orally Once a day Active Metoprolol Succinate Active Sinemet Active Social History Tobacco Use: Social History Observation Description Date Details (start date - stop date) Former Smoker NA - NA Tobacco Use/Smoking Question Answer Notes Are you a: former smoker Additional Findings: Tobacco Non-User Current no n-smoker Alcohol Screen Question Answer Notes Did you have a drink containing alcohol in the p ast year? No Points 0 Interpretation Negative Tobacco use other than smoking: Question Answer Notes Are you an other tobacco user? No Vital Signs Height 5ft in 06/10/2024 Weight 160 lbs 06/10/2024 BMI 31.24 kg/m2 06/10/2024 Blood pressure systolic 124 mm Hg 06/10/20 24 Blood pressure diastolic 73 mm Hg 024 Encounters Encounter Location Date Provider Diagnosis [facility] [address] [address] 06/10/2024 Halle Saucedo Peroneal tendinitis of left lower extremity M76.72 ; Localized edema R60.0 ; Parkinson's disease with fluctuating manifestations, unspecified whether dyskinesia present G20.A2 ; Pain in left foot M79.672 and Stress fracture of left foot with routine healing, subsequent encounter M84.375D Assessments Encounter Date Diagnosis (ICD Code) Assessment Notes Treatment Notes Treatment Clinical Notes Section Notes 06/10/2024 Peroneal tendinitis of left lower extremity (ICD-10 - M76.72) 06/10/2024 Localized edema (ICD-10 - R60.0) 06/10/2024 Parkinson's disease with fluctuating manifestations, unspecified whether dyskinesia present (ICD-10 - G20.A2) 06/10/2024 Pain in left foot (ICD-10 - M79.672) 06/10/2024 Stress fracture of left foot with routine healing, subsequent encounter (ICD-10 - M84.375D) Plan Of Treatment Next Appt Details Follow Up: prn, Reason: Progress Notes * Wanda HAWTHORNE MDOB:1955 (68 yo F)Acc No.[id number]:06/10/2024 Progress Note Patient:?Wanda Hawthorne Provider:?Halle PRISCILA Saucedo :1955???Age:68 Y???Sex:Female D ate:06/10/2024 Address:[address] [place] [address], [address], [facility] Pcp:Jim Jimenez MD Subjective: * Chief Complaints: * ???Foot pain * HPI: ???Foot Pain:?Nature:?aching , sharp , tenderness.?Location:?, LEFT.?Duration:?4 weeks.?Onset:?walking.?Course:?, improved , at 70 %.?Aggravated:?any pressure, standing, walking.?Treatments:?rest/alter normal daily activity, ice,walking boot, -Avulsion fracture (Urgent Care ), brace.? * ROS:?General/Constitutional:?Nausea?denies.?Vomiting?denies.?Hunger Thirst?denies.?Loss appetite?denies.?Chills?denies.?Fatigue?denies.?Fever?denies.?Night Sweats?denies.?Unexplained weight loss?denies.?Unexplained weight gain?denies.?HEENTM:?Dentures?denies.?Dizziness?denies.?Glasses/contacts?denies.?Retinopathy?de nies.?Blurred/double vision?denies.?TMJ?denies.?Discharge/drainage?denies.?Implants?denies.?Sore throat?denies.?Dental implants?denies.?Hard of hearing ?denies.?Difficulty chewing/swallowing/speaking?denies.?Nose bleeds?denies.?Sore mouth?denies.?Respiratory:?On Oxygen?denies.?Pneumonia/pleurisy?denies.?Bronchitis?denies.?Emphysema?denies.?C oughing?denies.?Cough blood?denies.?Shortness of breath?denies.?Wheezing?denies.?Cardiovascular:?Pacemaker?denies.?MVP?denies.?WPW?denies.?CHF?denies.?Heart attack?denies.?Septal defect?denies.?Rapid beat?denies.?Chest pain ?denies.?Atrial Fib.?denies.?Murmur/Palpitations?denies.?Gastrointestinal:?Hemorrhoids?denies.?Stomach/Abdominal pain?denies.?Dark blood stool?denies.?Irritable bowel ?denies.?Constipation?denies.?Diarrhea?denies.?Hematology:?Swelling?admits.?Clots?denies.?Varicose Veins?denies.?Bruising?denies.?Bleeding problem?denies.?Genitourinary:?Blood urine?denies.?Frequent/Painfu/urination/bladder control?denies.?Kidney stones?denies.?Infection (UTI)?denies.?Nephropathy?denies.?sex trans dis (STD)?denies.?Prostate?denies.?Musculoskeletal:?Hammertoes?denies.?Bunions?denies.?Back Pain?denies.?Muscle Cramps/ Resting?denies.?Muscle cramps / walking?denies.?Generalized aches and pains?admits.?Weakness?denies.?Integ.:?Jefferson?denies.?Scars?denies.?Corns/calluses?denies.?Ingrown nails?denies.?Painful nails?denies.?Open Sores?denies.?Rashes?denies.?Neurologic:?Difficulty sleeping?denies.?Brain disorder?denies.?Numbness?denies.?Balance trouble?admits.?Confusion?denies.?Fainting/blackouts?denies.?Tingling?denies.?Tr emors?admits.? * Medical History:? * Surgical History:?thyroidect dennis 2011Gastropexy 2021 * Hospitalization/Major Diagno stic Procedure:?Denies Past Hospitalization * Family History:?Mother: dece ased, diagnosed with Diabetic - NIDDM, Unspecified essential hypertension, Unspecified heart disease, Family history of arthritis.?Father: , diagnosed with Other malignant neoplasm of unspecified site.?Siblings: diagnosed with Other malignant neoplasm of unspecified site.? * Social History:?Tobacco Use:?Tobacco Use/Smoking?Are you a:?former smoker ?Additional Findings: Tobacco Non-User?Current non-smoker ?Tobacco use other than smoking?Are you an other tobacco user??No ???Drugs/Alcohol:?Drugs?Have you used drugs other than those for medical reasons in the past 12 months??No ?Alcohol Screen?Did you have a drink containing alcohol in the past year??No ?Points?0 ?Interpretation?Negative ???Miscellaneous:?Caffeine: yes, frequency:, 1-2 cups per day. ?no Children. ?no Exercise. ?Marital status: single. ?Occupation: Nurse. * Medications:?TakingMetoprolo l Succinate Sinemet Synthroid Zocor 40 MG Tablet 1 tablet in the evening Orally Once a dayMedication List reviewed and reconciled with the patientTaking Metoprolol Succinate Taking Sinemet Taking Synthroid Taking Zocor 40 MG Tablet 1 tablet in the evening Orally Once a dayMedication List reviewed and reconciled with the patient * Allergies:?CodeineShrimp Nicolle love[Allergies Verified] Objective: * Vitals:?Ht: 5ft, Wt:160, BMI :31.24, Shoe size: 5, BP:124/73 mm Hg, Ht-cm: 152.4 cm, Wt-k.57 kg. * Examination: ???General Examination: ?GENERAL APPEARANCE:?Reveals a pleasant, alert, well nourished, well- developed, well hydrated individual, who demonstrates proper attention to hygiene/body habitus, and is in no acute distress, Pt serves as own historian for office visit today.?ORIENTED:?person, place, and time.?Orthopedic: ?MUSCLE STRENGTH:?Generalized decrease in strength , Left.?DIGITAL DEFORMITIES:?Digital contracture, PIPJ, 2-5 B/L, incompl-reducible with WB, or to push-up test, no over, nor underlapping.?MPJ PATHOLOGY:?Pain, swelling, and inflammation to dorsal MPJ(s) , 5th , LEFT , No MPJ pain with ROM , Approximately 70 percent LESS.?TENDONITIS:? Pain on palpation, inflammation, and fusiform swelling to, Peroneal Complex, LEFT, pain with inversion?.?Neurological: ?SENSORY:?Neurological exam reveals intact sensorium, pain sensation normal, vibration sensation intact, pinprick sensation is normal in the lower extremities, Pt denies, anesthesia, burning, paresthesia, tingling, B/L.?Vascular: ?DP PULSES(B):?2/4, B/L.?PT PULSES(B):?2/4, B/L.?CAPILLARY FILL TIME:?immediate, all digits, B/L.?TROPHIC CONDITION-TEXTURE/ELASTICITY/TURGOR/HAIR GROWTH(B):?normal, B/L.?TEMPERTURE GRADIENT(C):?normal, warm to cool, proximal to distal, B/L, B/L.?X-Rays - IMAGING REPORT: ?Clinical Indication(s):? Evaluate for Fracture.?Views:? 3 views of Foot, LEFT, AP, LAT, LO.?Findings:?increase in soft tissue contour and density at the symptomatic site.?Digits:?show asymmetrical joint space narrowing at the PIPJ consistent with clinical finding of hammertoe deformity, show enlarged/hypertrophied phalangeal head(s) consistent for clinical finding of hammertoe deformity.?Fracture:?Sign of Stress fracture identified base of the 5th shaft , Left, martin callus present.?Accessory ossicles:?Os Peronium- smooth round edges.? * Physical Examination:?L2999 Supplies:?Insoles-pedag?#35.? Assessment: * Assessment: 1.?Localized edema - R60.0?2 .?Peroneal tendinitis of left lower extremity - M76.72?3.?Parkinson's disease with fluctuating manifestations, unspecified whether dyskinesia present - G20.A2?4.?Pain in left foot - M79.672?5.?Stress fracture of left foot with routine healing, subsequent encounter - M84.375D? Plan: * Treatment: * Procedure Codes:?11499 X-RAY EXAM OF LEFT FOOT 3V, Modifiers: 26 , LT * Preventive Medicine:? ??Counseling:?Discussion:?-14: Office or other outpatient visit for the evaluation and management of an established patient, which required a medically appropriate history and/or examination and MODERATE level of DECISION MAKING for: 1 OR MORE CHRONIC PROBLEM(S) THATS WORSENING, 2 STABLE CHRONIC PROBLEMS, A NEWLY DIAGNOSED PROBLEM WITH UNCERTAIN PROGNOSIS, AN ACUTE COMPLICATED INJURY WITH MULTIPLE TREATMENT OPTIONS, OR AN ACUTE PROBLEM WITH ACCOMPANYING SYSTEMIC SYMPTOMS, THAT POSE(S) A MODERATE RISK OF MORBIDITY. THIS CONDITION MAY ALSO INCLUDE RX DRUG MANAGEMENT, OR A DECISON FOR MINOR SURGERY. The visit on the day of the encounter encompassed interpreting the data and educating the patient as to the nature of their condition, treatment options available according to their individual PMH, meds, allergies, and overall health/living conditions, as well as any potential risks or complications that may occur from a failure to adhere to, and participate in, the recommended course of therapy. The discussion included a complete verbal, and/or written explanation of the examination results, any x-rays taken, the proposed diagnosis, and outline of the treatment plan. A schedule for future care needs was also explained. The patient verbalized an understanding of the instructions at this time and agreed to be an active participant in their treatment. If the patient should think of any questions or concerns after the visit, I have encouraged the patient to call the office.?BioMech.:?I discussed the Pts foot biomechanics with them and how it relates to their problem, Discussed and reviewed the X-rays with the patient. We discussed how the findings relate to the patients symptoms/complaints. Answered any and all questions., Recommended Topical analgesics including biofreeze/aspercream/Voltaren gel.?Orthotic Dispensing:?The OTC inserts are properly fitted to the patient's feet in both weight-bearing and non-weight bearing attitudes. The patient was instructed to gradually increase the amount of time they are wearing the orthoses, starting with one hour the first day and thereon progressively increasing the amount of time used until they are comfortable to be worn all day and with all activities. They were asked to call the office if any signs of skin irritation were noted including redness, blistering or callous formation. The patient verbally indicated a full understanding of all the above information.?X-rays:?Discussed and reviewed the X-rays with the patient. We discussed how the findings relate to the patients symptoms/complaints. Answered any and all questions., Discussed the process of bone healing with the Pt., The healing process on average can take 6-8 weeks depending the bone,type of break, age and overall health..? * Follow Up:?prn * Images: * Sign off status: Completed true * Provider:?Halle Saucedo DPM Date:?2023 Generated for Rossy latif/Delia/eTransmitting on:?11/24/2024 09:21 AM EDT History and Physical Notes * HPI (History of Present Illness) Category Sub-Category Detail Notes Category Not es Foot Pain Nature: aching , sharp , tenderness Location: , LEFT Duration: 4 weeks Onset: walking Course: , improved , at 70 % Aggravated: any pressure, standi ng, walking Treatments: rest/alter normal da obdulia activity, ice,walking boot, -Avulsion fracture (Urgent Care ), brace Physical Examination Category Sub-Category Detail Notes Section Note s L2999 Supplies Insoles-pedag #35 Examination Category Sub-Category Detail Notes Category Not es Neurological SENSORY: Neurological exa m reveals intact sensorium, pain sensation normal, vibration sensation intact, pinprick sensation is normal in the lower extremities, Pt denies, anesthesia, burning, paresthesia, tingling, B/L Orthopedic DIGITAL DEFORMITIES: Digital con tracture, PIPJ, 2-5 B/L, incompl-reducible with WB, or to push-up test, no over, nor underlapping MPJ PATHOLOGY: Pain, swelling, and inflammation to dorsal MPJ(s) , 5th , LEFT , No MPJ pain with ROM , Approximately 70 percent LESS TENDONITIS: Pain on palpation, i nflammation, and fusiform swelling to, Peroneal Complex, LEFT, pain with inversion MUSCLE STRENGTH: Generalized decrease in strength , Left General Examination GENERAL APPEARANCE: Reveals a pleasant, alert, well nourished, well-developed, well hydrated individual, who demonstrates proper attention to hygiene/body habitus, and is in no acute distress, Pt serves as own historian for office visit today ORIENTED: person, place, and t elsy Vascular DP PULSES (B): 2/4, B/L PT PULSES (B): 2/4, B/L CAPILLARY FILL TIME: immediate, all digi ts, B/L TEMPERTURE GRADIENT (C): normal, warm to cool, proximal to distal, B/L, B/L TROPHIC CONDITION-TEXTURE/ELASTICITY/TURGOR/HAIR GROWTH (B): normal, B/L X-Rays - IMAGING REPORT Findings: increase in soft tissue contour and density at the symptomatic site Fracture: Sign of Stress fract ure identified base of the 5th shaft , Left, martin callus present Accessory ossicles: Os Peronium- smooth round edges Digits: show asymmetrical melissa int space narrowing at the PIPJ consistent with clinical finding of hammertoe deformity, show enlarged/hypertrophied phalangeal head(s) consistent for clinical finding of hammertoe deformity Views: 3 views of Foot, LEF T, AP, LAT, LO Clinical Indication(s): Evaluate for Fra cture
--- OUTSIDE RECORDS SUMMARY | 2024-11-24 09:21 | XMS_ITS | Encounter Summary ---
Author Organization [facility] Address [address] [place] [address] Care Team Providers Care Bench Worker Hollow Handle Name Role Phone Jimenez, Jim Amezcua Primary Care Provider [phone] Encounter Details Date Type Department Care Team (Late st Contact Info) Description 01/01/2022 myChart Message Initial Department [address] [place] [address] Mychart, Generic Provider [address] [place], [place] [id number] Questionnaire Submission Social History Tobacco Use Types Packs/Day Years [...] Description 01/07/2025 1:00 PM EDT Office Visit [facility] [address] [place], [place] [id number] Jacquie Dalton MD [address] [facility] [place] [address] documented as of this encounter Visit Diagnoses Not on filedocumented in this encounter Care Teams Bench Worker Hollow Handle Relationship Specialty Start Date End Date Jim Jimenez [address] [place] [address] [place] [address] PCP - General Internal Medicine 04/29/19 documented as of this encounter
--- OUTSIDE RECORDS SUMMARY | 2024-11-24 09:22 | XMS_ITS ---
Author Organization [facility] Address [address] [facility] [place] [address] Care Team Providers Care Full Fashioned Garment Knitter Name Role Phone Tony REDDY, Jim Primary Care Provider Unavailab Halle Mistry Unavailable [phone] Allergies Allergen (clinical drug ingredient) Drug/Non Drug Allergy documented on EMR Reaction Allergy Type Onset Date Status Shrimp Flavor Unknown Drug Allergy Act regan codeine Codeine Unknown Drug Allergy Active REASON FOR VISIT Last PCP visit 05/2024, Foot pain Medications Medication SIG (Take, Route, [...] (Standard) Question Answer Notes Tobacco use: Nonsmoker Vital Signs Height 5ft in 08/13/2024 Weight 160 lbs 08/13/2024 BMI 31.24 kg/m2 08/13/2024 Blood pressure systolic 112 mm Hg 08/13/19 25 Blood pressure diastolic 70 mm Hg 025 Encounters Encounter Location Date Provider Diagnosis [address] [place] [address] 08/13/2024 Halledario Saucedo Peroneal tendinitis of left lower extremity M76.72 ; Stress fracture of left foot with routine healing, subsequent encounter M84.375D ; Localized edema R60.0 ; Parkinson's disease with fluctuating manifestations, unspecified whether dyskinesia present G20.A2 and Pain in left foot M79.672 Assessments Encounter Date Diagnosis (ICD Code) Assessment Notes Treatment Notes Treatment Clinical Notes Section Notes 08/13/2024 Peroneal tendinitis of left lower extremity (ICD-10 - M76.72) 08/13/2024 Stress fracture of left foot with routine healing, subsequent encounter (ICD-10 - M84.375D) 08/13/2024 Localized edema (ICD-10 - R60.0) 08/13/2024 Parkinson's disease with fluctuating manifestations, unspecified whether dyskinesia present (ICD-10 - G20.A2) 08/13/2024 Pain in left foot (ICD-10 - M79.672) Plan Of Treatment Next Appt Details Follow Up: prn, Reason: Progress Notes * Wanda HAWTHORNE MDOB:1955 (68 yo F)Acc No.[id number]:08/13/2024 Progress Note Patient:?Wanda HAWTHORNE M Provider:?Halle Saucedo DPM :1955???Age:68 Y???Sex:Female D ate:08/13/2024 Address:[address] [place] [address], [address] Pcp:Jim Jimenez MD Subjective: * Chief Complaints: * ???Last PCP visit 05/2024Foo t pain * HPI: ???Foot Pain:?Nature:?aching , sharp , tenderness.?Location:?, LEFT.?Duration:?4 weeks.?Onset:?walking.?Course:?, improved , at 90 %.?Aggravated:?any pressure, standing, walking.?Treatments:?rest/alter normal daily activity, ice,walking boot, -Avulsion fracture (Urgent Care), brace, pt relates normal activity with very little pain.? * ROS:?General/Constitutional:?Nausea?denies.?Vomiting?denies.?Hunger Thirst?denies.?Loss appetite?denies.?Chills?denies.?Fatigue?denies.?Fever?denies.?Night Sweats?denies.?Unexplained weight loss?denies.?Unexplained [...] dennis 2011Gastropexy 2021 * Hospitalization/Major Diagno stic Procedure:?No Hospitalization History. * Family History:?Mother: dece ased, diagnosed with Diabetic - NIDDM, Unspecified essential hypertension, Unspecified heart disease, Family history of arthritis.?Father: , diagnosed with Other malignant neoplasm of unspecified site.?Siblings: diagnosed with Other malignant neoplasm of unspecified site.? * Social History:?Tobacco Use:?Tobacco use other than smoking?Are you an other tobacco user??No ?Tobacco Control (Standard)?Tobacco use:?Nonsmoker ???Drugs/Alcohol:?Drugs?Have you used drugs other than those for medical reasons in the past 12 months??No ?Alcohol Screen?Did you have a drink containing alcohol in the past year??No ?Points?0 ?Interpretation?Negative ???Miscellaneous:?Caffeine: yes, frequency:, 1-2 cups per day. ?Children: no. ?Exercise: no. ?Marital status: single. ?Occupation: Nurse. * Medications:?TakingMetoprolo l Succinate Sinemet Synthroid Zocor 40 MG Tablet 1 tablet in the evening Orally Once a day Medication List reviewed and reconciled with the patientTaking Metoprolol Succinate Taking Sinemet Taking Synthroid Taking Zocor 40 MG Tablet 1 tablet in the evening Orally Once a day Medication List reviewed and reconciled with the patient * Allergies:?CodeineShrimp Nicolle love[Allergies Verified] Objective: * Vitals:?Ht: 5ft, Wt:160, BMI :31.24, Shoe size: 5, BP:112/70mm Hg, Ht-cm: 152.4 cm, Wt-k.57 kg. * [...] No MPJ pain with ROM , Approximately 90 percent LESS.?TENDONITIS:?No Pain on palpation, inflammation, and fusiform swelling to, Peroneal Complex, LEFT, No pain with inversion?.?Neurological: ?SENSORY:?Neurological exam reveals intact sensorium, pain sensation normal, vibration sensation intact, pinprick sensation is normal in the lower extremities, Pt denies, anesthesia, burning, paresthesia, tingling, B/L.?Vascular: ?DP PULSES (B):?2/4, B/L.?PT PULSES (B):?2/4, B/L.?CAPILLARY FILL TIME:?immediate, all digits, B/L.?TROPHIC CONDITION-TEXTURE/ELASTICITY/TURGOR/HAIR GROWTH (B):?normal, B/L.?TEMPERTURE GRADIENT (C):?normal, warm to cool, proximal to distal, B/L, B/L.? Assessment: * Assessment: 1.?Peroneal tendinitis of le ft lower extremity - M76.72???Specify :resolved???2.?Stress fracture of left foot with routine healing, subsequent encounter - M84.375D (Primary)???Specify :Response to treatment - Improvement???3.?Localized edema - R60.0???4.?Parkinson's disease with fluctuating manifestations, unspecified whether dyskinesia present - G20.A2???5.?Pain in left foot - M79.672??? Plan: * Treatment: * Procedure Codes:? * Preventive Medicine:? ??Counseling:?Discussion:?-12: Office or other outpatient visit for the evaluation and management of an established patient, which required a medically appropriate history and/or examination and STRAIGHTFORWARD level of MEDICAL DECISION MAKING, 1 SELF-LIMITED OR MINOR PROBLEM, MINIMAL- NO AMOUNT/COMPLEXITY OF DATA TO BE REVIEWED/ANALYZED, AND MINIMAL RISK OF COMPLICATION/MORBIDITY. The visit on the day of the [...] have encouraged the patient to call the office, Patients podiatric issue has improved, they should call the office with any future issues or concerns.Pt may resume all normal activity.? * Follow Up:?prn * Images: * Sign off status: Completed true * Provider:?Halle Saucedo DPM Date:?2024 Generated for Rossy latif/Delia/eTransmitting on:?11/24/2024 09:21 AM EDT History and Physical Notes * HPI (History of Present Illness) Category Sub-Category Detail Notes Category Not es Foot Pain Nature: aching , sharp , tenderness Location: , LEFT Duration: 4 weeks Onset: walking Course: , improved , at 90 % Aggravated: any pressure, standi ng, walking Treatments: rest/alter normal da obdulia activity, ice,walking boot, -Avulsion fracture (Urgent Care), brace, pt relates normal activity with very little pain Examination Category Sub-Category Detail Notes Category Not [...] No MPJ pain with ROM , Approximately 90 percent LESS TENDONITIS: No Pain on palpation , inflammation, and fusiform swelling to, Peroneal Complex, LEFT, No pain with inversion MUSCLE STRENGTH: Generalized decrease [...]
--- OUTSIDE RECORDS SUMMARY | 2024-11-24 09:22 | XMS_ITS | Encounter Summary ---
Author Organization [facility] Address [address] [place] [address] Care Team Providers Care Audiovisual Production Specialist Name Role Phone Jim Jimenez Primary Care Provider [phone] Encounter Details Date Type Department Care Team (Late st Contact Info) Description 11/09/2020 Orders Only [facility] Interventional Radiology [address] [place] [address] Jaleesa Nguyen MD [address] [place] [address] Social History Tobacco Use Types Packs/Day Years [...] Description 01/07/2025 1:00 PM EDT Office Visit [facility] [address] [place] [address] Jacquie Dalton MD [address] [facility] [place] [address] documented as of this encounter Visit Diagnoses Not on filedocumented in this encounter Care Teams Audiovisual Production Specialist Relationship Specialty Start Date End Date Jim Jimenez [address] [place] [address] [place] [address] PCP - General Internal Medicine 04/29/19 documented as of this encounter
--- OUTSIDE RECORDS SUMMARY | 2024-11-24 09:22 | XMS_ITS | Encounter Summary ---
Author Organization [facility] Address [address] [place] [address] Care Team Providers Care Quartz Orientator Name Role Phone Jim Jimenez Primary Care Provider [phone] Encounter Details Date Type Department Care Team (Late st Contact Info) Description 05/20/2020 myChart Message [facility] [address] [place] [address] Marce Gray MD [address] [place] [address] [place] [address] RE: Test Results Question Social History Tobacco Use Types Packs/Day [...] Description 01/07/2025 1:00 PM EDT Office Visit [facility] [address] [place] [phone] Jacquie Dlaton MD [address] [place] [address] Internal Medicine [place], [place] [phone] documented as of this encounter Visit Diagnoses Not on filedocumented in this encounter Care Teams Quartz Orientator Relationship Specialty Start Date End Date Jim Jimenez [address] [place] [address] [place] [address] PCP - General Internal Medicine 04/29/19 documented as of this encounter
--- OUTSIDE RECORDS SUMMARY | 2024-11-24 09:22 | XMS_ITS | Encounter Summary ---
Author Organization [facility] Address [address] [place] [address] Care Team Providers Care Trim Setter Helper Name Role Phone Jim Jimenez Primary Care Provider [phone] Encounter Details Date Type Department Care Team (Late st Contact Info) Description 11/09/2020 myChart Message [facility] [address] [place] [address] [phone] Marce Gray MD [address] [place] [address] [place] [address] RE: MRI Social History Tobacco Use Types Packs/Day Years [...] Description 01/07/2025 1:00 PM EDT Office Visit [facility] [address] [place] [address] [phone] Jacquie Dalton MD [address] [place] [address] Internal Medicine [place], [place] [phone] documented as of this encounter Visit Diagnoses Not on filedocumented in this encounter Care Teams Trim Setter Helper Relationship Specialty Start Date End Date Jim Jimenez [address] [place] [address] [place] [address] PCP - General Internal Medicine 04/29/19 documented as of this encounter
[2024-11-24 10:48] LABS: Alanine Aminotransferase < 6 U/L (0-31); Anion Gap 11 (12-20); Aspartate Amino Transferase 21 U/L (5-31); Blood Urea Nitrogen 15 mg/dL (9-16); Carbon Dioxide 30 mmol/L (22-29); Chloride 104 mmol/L (96-108); Estimated Glomerular Filt Rate > 60; Potassium 4.4 mmol/L (3.3-5.1); Sodium 141 mmol/L (135-145)
[2024-11-24 11:02] LABS: Free T4 (Free Thyroxine) 1.43 ng/dL (0.71-1.85); Thyroid Stimulating Hormone 0.33 uIU/mL (0.32-4.0)
== END 2024-11-24 09:16 | disposition home or self-care (01) ==
LOC: HO.HMGCLDS 09:15
PROVIDERS: PCP Family Medicine; Visit Provider Family Medicine
DX: I10 Essential (primary) hypertension (principal); E03.9 Hypothyroidism, unspecified; E78.00 Pure hypercholesterolemia, unspecified
CPT/HCPCS: 36415; 80051; 82550; 82565; 84439; 84443; 84450; 84460; 84520

== ENCOUNTER 2025-02-20 15:00 | Outpatient (AMB) | payer OTHER, MEDICARE, SELFPAY ==
--- OUTSIDE RECORDS SUMMARY | 2025-02-20 15:02 | XMS_ITS | Encounter Summary ---
Author Organization [facility] Address [address] [place] [address] Care Team Providers Care Caddie Supervisor Name Role Phone Jim Jimenez Primary Care Provider [phone] Encounter Details Date Type Department Care Team (Late st Contact Info) Description 01/01/2022 [employer] Message Intial Department [address] [place] [address] MycharHereOrThere, Generic Provider [address] [place], [place] [phone] Questionnaire Submission Social History Tobacco Use Types [...] Care Team (Late st Contact Info) Description 08/05/2025 2:45 PM EST Office Visit [facility] [address] [place] [address] aJcquie Dalton MD [address] [facility] [place] [address] documented as of this encounter Visit Diagnoses Not on filedocumented in this encounter Care Teams Caddie Supervisor Relationship Specialty Start Date End Date Jim Jimenez [address] [place] [address] [place] [address] PCP - General Internal Medicine 04/29/19 documented as of this encounter
--- OUTSIDE RECORDS SUMMARY | 2025-02-20 15:02 | XMS_ITS | Clinical Summary ---
Author Organization [facility] Address [address] [address] Phone Care Team Providers Care Credentialing Coordinator Name Role Phone Jim Jimenez MD Primary Care Provider [phone] Social History Tobacco Use Types Packs/Day Years Used Date Smoking Tobacco: Never Assessed Education Answer Date Recorded Are you interested in more education? Not on karl e 12/01/2022 Are you concerned about learning? Not on file 12/01/2022 No 12/01/2022 No 12/01/2022 Digital Access Answer Date Recorded No 12/30/2022 No 12/30/2022 No 12/30/2022 Reliable internet access at home? Not on file 12/30/2022 Device with a working camera? Not on file Comments Unknown Sex and Gender Information Value Date Recorded Sex Assigned at Not on file Legal Sex Female 9:56 AM EST Gender Identity Not on file Sexual Orientation Not on file Plan of Treatment Health Maintenance Due Date Last Done Comments Adult Td,Tdap Booster 1956 LIPID PANEL 1956 DEPRESSION SCREENING 1968 SMOKING Hx and SMOKELESS TOBACCO SCREENING 1969 HEPATITIS C SCREENING 1974 MAMMOGRAM 1996 COLOGUARD 2001 COLONOSCOPY 2001 COLORECTAL CANCER SCREENING 2001 FIT TEST 2001 FOBT 2001 SIGMOIDOSCOPY 2001 VIRTUAL COLONOSCOPY 2001 PNEUMOCOCCAL VACCINES (50+ years) (1 of 1 - PCV) 2006 ZOSTER VACCINES (1 of 2) 2006 OSTEOPOROSIS SCREENING INITI AL (ONE-TIME) 2021 COVID-19 VACCINE (4 - 2023-2 5 season) 2024 11/24/2021, 08/24/2020, 08/03/2020 RSV VACCINE (1 - 1-dose 75+ series) 2031 HEPATITIS A VACCINES Aged Out No long er eligible based on patient's age to complete this topic HIB VACCINES Aged Out No longer eligi ble based on patient's age to complete this topic MENINGOCOCCAL VACCINES (ACWY) Aged Out No longer eligible based on patient's age to complete this topic MENINGOCOCCAL VACCINES (B) Aged Out N o longer eligible based on patient's age to complete this topic Medical Devices Not on file Insurance [employer] CHO[employer] INDEMNITY [employer] TOTAL CHOICE INDEMNITY [employer] [facility] TOTAL CHOICE INDEMNITY [address] [place] [address] [facility] TOTAL CHOICE INDEMNITY UNIT [address] [place] [id number] [employer] [facility] TOTAL CHOICE INDEMNITY [facility] TOTAL CHOICE INDEMNITY Care Teams Credentialing Coordinator Relationship Specialty Start Date End Date Jim Jimenez MD [address] [place] [address] [place] [address] PCP - General Internal Medicine 07/08/19 Additional Source Comments The information contained in this document represents components of the legal health record. It is not the complete legal health record.[facility]
--- OUTSIDE RECORDS SUMMARY | 2025-02-20 15:02 | XMS_ITS | Patient Health Record ---
Author Organization [facility] Address [address] [facility] [place] [address] Care Team Providers Care Concrete Mixer Loader Truck Mounted Name Role Phone Jim Jimenez MD Primary Care Provider Unavailab Halle Mistry Unavailable [phone] Allergies Allergen (clinical drug ingredient) Drug/Non Drug [...] Acquired cavus deformity of right foot (disorder) (8319071838128 102) Cavus deformity of right foot (Q66.71) Active confirmed Vital Signs Blood pressure diastolic 70 mm Hg 08/13/2024 Height 5ft in 08/13/2024 Blood pressure systolic 112 mm Hg 08/13/2024 Weight 160 lbs 08/13/2024 BMI 31.24 kg/m2 08/13/2024 Encounters Encounter Location Date Provider Diagnosis [address] [address] 05/14/2024 Halle Black Peroneal tendinitis of left lower extremity M76.72 ; Stress fracture of left foot, initial encounter M84.375A ; Localized edema R60.0 ; Parkinson's disease with fluctuating manifestations, unspecified whether dyskinesia present G20.A2 and Pain in left foot M79.[address] [address] 06/10/2024 Halle Black Peroneal tendinitis of left lower extremity M76.72 ; Localized edema R60.0 ; Parkinson's disease with fluctuating manifestations, unspecified whether dyskinesia present G20.A2 ; Pain in left foot M79.672 and Stress fracture of left foot with routine healing, subsequent encounter M84.375D [address] [address] 08/13/2024 Halle Black Peroneal tendinitis of left lower extremity M76.72 ; Stress fracture of left foot with routine healing, subsequent encounter M84.375D ; Localized edema R60.0 ; Parkinson's disease with fluctuating manifestations, unspecified whether dyskinesia present G20.A2 and Pain in left foot M79.672 [facility] [address] [place] [address] 05/12/2024 Halle Black [address] [address] 06/10/2024 Halle Black Assessments Encounter Date Diagnosis [...] Date [facility] [address] [place] [address] [phone] [id number] Wanda Handy Self - patient is the insured Medical (General) History Medical History History ICD Code Arthritis High Blood Pressure Parkinsons disease Psoriasis/eczema thyroid Measles Mumps Chicken pox Surgical History Surgery Date(Month/Year) thyroidectomy 2011 Gastropexy 2021
--- OUTSIDE RECORDS SUMMARY | 2025-02-20 15:03 | XMS_ITS | Patient Health Record ---
Author Organization [facility] Address [address] [place] [address] Care Team Providers Care Field Underwriter Name Role Phone Tony (RETIRED) Jim REDDY Primary Care Provider Unavailable Zia Dowd Unavailable [phone] Allergies Allergen (clinical drug ingredient) Drug/Non Drug Allergy documented on EMR Reaction Allergy Type Onset Date Status Codeine Phosphate vomiting Drug Allergy Active Shellfish (FN) shell fish (uncoded) rash Allergy Active Reason For Referral No Information Medications Medication SIG (Take, Route, Frequency, Duration) Notes Start Date End Date Status Vitamin C Active Co Q 10 Active Zocor 40mg qd Active Atenolol 25mg qd Active Levothyroxine Sodium 75mg qd Active Carbidopa-Levodopa A ctive Omeprazole 20 MG TAKE 1 CAPSULE BY MO UTH EVERY DAY for 90 Active Simvastatin Active Tylenol prn Active Immunizations Vaccine Route Administration Date Status Comme nts Influenza Unknown 07/07/2020 Administered Problems Problem Type SNOMED Code ICD Code Onset Dates Problem Status W/U Status Risk Notes Problem Screening for malignant neoplasm of colon (302814816) Encounter for screening for malignant neoplasm of colon (Z12.11) Active confirmed Problem History of adenomatous polyp of colon (765578946) History of adenomatous polyp of colon (Z86.010) Active confirmed Problem Preprocedural examination (792898726514335) Preprocedural examination (Z01.818) Active confirmed Problem Family History of Cancer of Colon (Situation) (722560791) Family history of colon cancer (Z80.0) Active confirmed Problem Gastroesophageal reflux disease (222958807) GERD (gastroesophageal reflux disease) (K21.9) Active confirmed Problem Computed tomography of abdomen abnormal (40303813576832056) Abnormal CT scan, stomach (R93.3) Active confirmed Problem Diaphragmatic hernia (13744900) 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) Active confirmed Plan Of Treatment Future Test Test Name Order Date UPPER GI ENDOSCOPY 11/04/2013 COLONOSCOPY 11/04/2013 COLONOSCOPY 07/07/2020 UPPER GI ENDOSCOPY 01/23/2022 Insurance Providers Payer Name Payer Address Payer Phone Subscriber Number Group Number Insured Name Patient Relationship to Insured Coverage Start Date Coverage End Date [employer] IN[employer]MNITY [address] [place] [address] [id number] NILES COOK Self - patient is the insured Medicare of [place] [employer] [address] [place] [address] [id number] KEVIN Albrecht NILES Self - patient is the insured Medical (General) History Medical History History ICD Code Colonoscopy 08-31-2006--2 small tubular a denomas removed Hypertension Psoriatic arthritis Thyroid cancer--diagnosised in 2011--rig ht thyroidectomy GERD Denies IL,DM,CVA,Lung disease,renal dise ase Hyperlipidemia 12/2013 Upper endo--fairly la rge hiatal hernia with associated reflux esophagitis-biopsies were negative for Wei's esophagus 12/2013-colonoscopy--one smal l tubular adenoma removed and mild diverticulosis Parkinson's disease Hiatal hernia 553.3 Surgical History Surgery Date(Month/Year) Partial throidectomy Tonsillectomy
--- NOTE | 2025-02-20 15:10 | MHC.PC.OV ---
Vital Signs 02/20/25 15:21 Height 5 ft Weight 70.307 kg BMI 30.3 BP 108/78 Blood Pressure Location Lt brachial Position Sitting Respiration 16 Pulse 102 H Pulse Source Pulse Oximeter Temp 97.4 F Temp Source Temporal Artery Scan Pulse Oximetry (%) 98 Oxygen Delivery Method Room Air Intake Visit Reasons: meds - Dr. Jimenez pt Head Waiter/Waitress Banquet Required: No Accompanied by: Self / Same As Patient Allergies fish derived (fish) Allergy (Intermediate, Verified 02/20/25 15:16) Rash ibuprofen Allergy (Intermediate, Verified 02/20/25 15:10) nightmares shellfish derived Allergy (Intermediate, Verified 02/20/25 15:10) Hives codeine Adverse Reaction (Intermediate, Verified 02/20/25 15:10) Nausea and Vomiting Medication List - Last Reconciled 02/20/25 by AMELIE Rodríguez acetaminophen 500 mg PO QID PRN calcium carbonate-vitamin D3 600 mg-25 mcg (1,000 unit) 1 cap PO BID carbidopa-levodopa 50-200 mg ER 1 tab orally 5 times per day; coenzyme Q10 (CoQ-10) 100 mg PO DAILY levothyroxine 75 mcg PO DAILY metoprolol succinate ER 50 mg PO BEDTIME omeprazole 1 cap PO DAILY simvastatin 1 tab PO DAILY Tobacco use date assessed: 02/20/25 HPI HPI Comments History of Present Illness Details 69-year-old female Parkinson's disease, GERD, hypertension, hyperlipidemia, postsurgical hypothyroidism, GERD presents to the office today for management of chronic conditions and to establish care. Postsurgical hypothyroidism-history of thyroid cancer 2011 with left-sided thyroidectomy. Goal TSH less than 1. Compliant with levothyroxine. Last TSH 0.33. Not following with endocrinology Parkinson's disease-stable on Sinemet. Does occasionally have a tremor in the left hand as well as dystonia of the left foot. Does not require assistive days though occasionally has balance issues. Follows with Neurology in [place]. She has a good support network and follows with an exercise program at the [facility] for with the Parkinson's disease Hypertension-on metoprolol GERD-stable on omeprazole Hyperlipidemia-on simvastatin TSH 0.33. no endo. Concerns: None Health maintenance: Last screening mammogram 08/2024 with 1 year follow-up advised Last screening colonoscopy 08/2020 with 5 year follow-up advised due to tubular adenoma. Dr. Dowd Due for DEXA scan ROS: General: No fevers, malaise, unintentional weight loss HEENT: No blurred vision, diplopia. No sore throat, nasal congestion, rhinorrhea, sinus pain, ear pain Cardiovascular: No chest pain, palpitations, or leg edema Respiratory: No shortness of breath, wheezing, cough GI: No abdominal pain, nausea, vomiting, diarrhea, constipation, melena, hematochezia : No dysuria, hematuria, increased urinary frequency, decreased urinary output MSK: No myalgia, back pain Neuro: No headaches, weakness, paresthesias. see hpi Skin: No rashes or lesions EXAM: Constitutional - Awake and Alert, No apparent distress Eyes - PERRL Cardiovascular - S1S2, RRR, No edema Respiratory - Normal lung expansion, Normal respiratory effort, No respiratory distress, CTA bilaterally Extremities - no calf tenderness bilaterally, no swelling Skin - Warm/Dry Neurological - Alert & oriented x3. resting tremor L hand Psychological - Appropriate affect [facility] Medical History (Updated 02/20/25 @ 15:50 by AMELIE Rodríguez) Hypothyroidism History of COVID-19 Diaphragm paralysis Tubular adenoma of colon (~2006) Hyperlipidemia History of thyroid cancer (~2011) Parkinsons disease Hiatal hernia GERD (gastroesophageal reflux disease) Psoriatic arthritis Hypertension Surgical History (Updated 02/19/25 @ 17:05 by Neeta Hutton) History of dilation and curettage (~2001) History of tonsillectomy History of partial thyroidectomy (~2011) History of endoscopy (~2013) History of colonoscopy (~08/30/20) Family History Father Colon cancer Paternal Grandfather Colon cancer Mother HTN (hypertension) DM2 (diabetes mellitus, type 2) Maternal Grandmother Colon cancer Social History (Updated 01/30/22 @ 15:15 by Annie Wheeler RN) Are you a primary urgent care technician to a significant other at home: No Do you presently have visiting nurse or other home services: No Patient Tobacco Use Status: Former Tobacco user Tobacco use type: Cigarette e-Cigarette/Vaping Use: Never Used Questionnaire PHQ-9 Over the last 2 weeks, how often have you been bothered by any of the following problems? 1. Little interest or pleasure in doing things: not at all 2. Feeling down, depressed, or hopeless: not at all 3. Trouble falling or staying asleep, or sleeping too much: several days 4. Feeling tired or having little energy: not at all 5. Poor appetite or overeating: not at all 6. Feeling bad about yourself - or that you are a failure or have let yourself or your family down: not at all 7. Trouble concentrating on things, such as reading the newspaper or watching television: not at all 8. Moving or speaking so slowly that other people could have noticed. Or the opposite - being so fidgety or restless that you have been moving around a lot more than usual: not at all 9. Thoughts that you would be better off or of hurting yourself in some way: not at all Total score: 1 Source: Developed by Drs. Zia Sheldon, Lizzie Rubio, Eric Radford and colleagues, with an educational renée from [employer] Thrive Questionnaire Date Thrive assessed: 02/20/25 I am a: Patient What is your living situation today?: I have a steady place to live Within the past 12 months, did the food you bought not last and you didn't have the money to get more?: Never true Within the past 12 months, did you worry whether your food would run out before you got money to buy more?: Never true Do you have trouble paying for medicines?: No Do you have trouble getting transportation to medical appointments?: No Do you have trouble paying your heating and electricity bill?: No Do you have trouble taking care of your child, family member or friend?: No Do you have trouble with day-to-day activities such as bathing, preparing meals, shopping, managing finances, etc.?: No Are you currently unemployed and looking for a job?: No Are you interested in more education?: No THRIVE Score: 0 AUDIT C Alcohol Use Questionnaire (AUDIT-C) 1. How often do you have a drink containing alcohol?: Never Total Score: 0 YUNG-7 AMB Questionnaire YUNG-7 Date YUNG - 7 assessed: 02/20/25 Feeling nervous, anxious, or on edge: 0 = Not at all Not being able to stop or control worryin = Not at all Worrying too much about different things: 0 = Not at all Trouble relaxin = Not at all Being so restless that it is hard to sit still: 0 = Not at all Becoming easily annoyed or irritable: 0 = Not at all Feeling afraid as if something awful might happen: 0 = Not at all Total YUNG-7 score (0-4 normal; 5-9 mild; 10-14 moderate; 15-21 severe): 0 Source: Developed by Drs. Zia Sheldon, Lizzie Rubio, Eric Radford and colleagues, with an educational renée from [employer] Physical exam (Primary Care) Vital Signs: Last Vital Signs Temp 97.4 F 02/20/25 15:21 Pulse 102 H 02/20/25 15:21 Resp 16 02/20/25 15:21 BP 108/78 02/20/25 15:21 Pulse Ox 98 02/20/25 15:21 Oxygen Delivery Method Room Air 02/20/25 15:21 BMI result Body Mass Index 30.3 Tobacco/Smoking Status: Tobacco use Status Tobacco use date assessed 02/20/25 02/20/25 15:12 Patient Tobacco Use Status Former Tobacco user 02/20/25 15:12 Tobacco use type Cigarette 02/20/25 15:12 e-Cigarette/Vaping Use Never Used 02/20/25 15:12 PHQ-9: PHQ-9 Score PHQ-9: Total score 1 02/20/25 15:24 Thrive Assessment: Date of Thrive Assessment Date Thrive assessed 02/20/25 02/20/25 15:24 Coding Level of Care Code New Pt Level 4 (13877) Complex EM visit Add On G2211 Diagnoses GERD (gastroesophageal reflux disease) K21.9 Hypertension I10 Hyperlipidemia E78.5 Parkinsons disease G20 Hypothyroidism E03.9 Assessment & Plan Assessment & Plan (1) GERD (gastroesophageal reflux disease): Code(s): K21.9 - Gastro-esophageal reflux disease without esophagitis Category: Medical Plan: Stable. Continue omeprazole (2) Hypertension: Code(s): I10 - Essential (primary) hypertension Category: Medical Plan: Controlled. Continue metoprolol (3) Hyperlipidemia: Code(s): E78.5 - Hyperlipidemia, unspecified Category: Medical Plan: Controlled. Continue simvastatin. Diet low in saturated fats and highly processed foods (4) Parkinsons disease: Code(s): G20 - Parkinson's disease Category: Medical Plan: Stable. Continue Sinemet (5) Hypothyroidism: Code(s): E03.9 - Hypothyroidism, unspecified Category: Medical Plan: Euthyroid. Continue TSH suppression less than 1. Continue levothyroxine Plan Follow-up in the office as scheduled with labs completed prior to visit. Dexa scan ordered. Advised to take calcium and vitamin-D which is ordered Orders: Orders XR DEXA axial skeleton Today Z78.0 - Asymptomatic menopausal state Basic Metabolic Panel 2 Months E03.9 - Hypothyroidism, unspecified, E78.5 - Hyperlipidemia, unspecified, G20 - Parkinson's disease, I10 - Essential (primary) hypertension Complete Blood Count Auto Diff 2 Months E03.9 - Hypothyroidism, unspecified, E78.5 - Hyperlipidemia, unspecified, G20 - Parkinson's disease, I10 - Essential (primary) hypertension Lipid Panel 2 Months E03.9 - Hypothyroidism, unspecified, E78.5 - Hyperlipidemia, unspecified, G20 - Parkinson's disease, I10 - Essential (primary) hypertension Liver Panel 2 Months E03.9 - Hypothyroidism, unspecified, E78.5 - Hyperlipidemia, unspecified, G20 - Parkinson's disease, I10 - Essential (primary) hypertension TSH reflex Free T4 2 Months E03.9 - Hypothyroidism, unspecified, E78.5 - Hyperlipidemia, unspecified, G20 - Parkinson's disease, I10 - Essential (primary) hypertension Vitamin D 25-OH Total 2 Months E03.9 - Hypothyroidism, unspecified, E78.5 - Hyperlipidemia, unspecified, G20 - Parkinson's disease, I10 - Essential (primary) hypertension Medications: New calcium carbonate-vitamin D3 600 mg-25 mcg (1,000 unit) 1 cap PO BID 90 caps 1RF Changed From levothyroxine 1 tab PO DAILY To levothyroxine 75 mcg PO DAILY 90 tabs 1RF
[2025-02-20 15:21] VITALS: BP 108/78; PULSE 102; RESP 16; TEMP 36.3; O2SAT 98; BMI 30.3
== END 2025-02-20 15:47 | disposition home or self-care (01) ==
LOC: HO.HMCHD 15:00
PROVIDERS: PCP Family Medicine; Visit Provider Physician Assistant
DX: K21.9 Gastro-esophageal reflux disease without esophagitis (principal); I10 Essential (primary) hypertension; G20.C Parkinsonism, unspecified; E78.5 Hyperlipidemia, unspecified; E03.9 Hypothyroidism, unspecified

== ENCOUNTER 2025-04-13 11:53 | Outpatient (REF) | payer MEDICARE, OTHER, SELFPAY ==
[2025-04-13 14:08] LABS: MANUAL DIFF FLAG NO
[2025-04-13 14:12] LABS: Hematocrit 41.4 % (37.0-47.0); Hemoglobin 13.3 g/dl (12.0-16.0); Imm Gran Abs Auto 0.02 X10*3/uL (0.00-0.03); Imm Gran Pct Auto 0.2 % (0.0-0.4); Lymphocytes Absolute Auto 3.8 X10*3/uL (1.2-4.9); Mean Corpuscular HGB Conc 32.1 g/dl (31.0-35.0); Mean Corpuscular Hemoglobin 29.3 pg (27.0-33.0); Mean Corpuscular Volume 91.2 fL (80.0-98.0); NRBC Abs Auto 0.000 X10*3/uL (0.0-0.012); NRBC Pct Auto 0.0 /100WBC (0.0-0.2); Platelet Count 325 X10*3/uL (160-400); Red Blood Count 4.54 X10*6/uL (4.20-5.50); White Blood Count 10.4 X10*3/uL (4.8-10.8)
--- OUTSIDE RECORDS SUMMARY | 2025-04-13 14:28 | XMS_ITS | Encounter Summary ---
Author Organization [facility] Address [address] [place] [address] Care Team Providers Care Machine Hand Name Role Phone Jim Jimenez Primary Care Provider [phone] Encounter Details Date Type Department Care Team (Late st Contact Info) Description 04/27/2022 myChart Message [facility] [address] [place] [address] Marce Gray MD [address] [place] [address] [place] [address] Off periods Social History Tobacco Use Types [...] Description 08/05/2025 2:45 PM EST Office Visit [facility] [address] [place] [address] Jacquie Dalton MD [address] [place] [address] Internal Medicine [place], [place] [phone] documented as of this encounter Visit Diagnoses Not on filedocumented in this encounter Care Teams Machine Hand Relationship Specialty Start Date End Date Jim Jimenez [address] [place] [address] [place] [address] PCP - General Internal Medicine 04/29/19 documented as of this encounter
--- OUTSIDE RECORDS SUMMARY | 2025-04-13 14:28 | XMS_ITS | Encounter Summary ---
Author Organization [facility] Address [address] [place] [address] Care Team Providers Care Ham Marker Name Role Phone Jim Jimenez Primary Care Provider [phone] Encounter Details Date Type Department Care Team (Late st Contact Info) Description 08/03/2022 myChart Message [facility] [address] [place] [address] Marce Gray MD [address] [place] [address] [place] [address] Clinical trials Social History Tobacco Use Types [...] Description 08/05/2025 2:45 PM EST Office Visit [facility] [address] [place] [address] Jacquie Dalton MD [address] [place] [address] Internal Medicine [place], [place] [phone] documented as of this encounter Visit Diagnoses Not on filedocumented in this encounter Care Teams Ham Marker Relationship Specialty Start Date End Date Jim Jimenez [address] [place] [address] [place] [address] PCP - General Internal Medicine 04/29/19 documented as of this encounter
--- OUTSIDE RECORDS SUMMARY | 2025-04-13 14:28 | XMS_ITS | Encounter Summary ---
Author Organization [facility] Address [address] [place] [address] Care Team Providers Care Anesthesia Director Name Role Phone Jim Jimenez Primary Care Provider [phone] Reason for Visit * Reason Onset Date Comments Study call with 06/13/2021 Encounter Details Date Type Department Care Team ([facility] st Contact Info) Description 06/13/2021 Telephone [facility] Central Scheduling Department [address] [place] [address] Neurology, Unv [address] [place] [address] Study call with Social History Tobacco Use [...] parkinson'sand would like for prov to call [phone] documented in this encounter Plan of Treatment Upcoming Encounters Date Type Department Care Team (Late st Contact Info) Description 08/05/2025 2:45 PM EST Office Visit [facility] Neurology Clinic [address] [place], [place] [phone] Jacquie Dalton MD [address] [place] [address] Internal [place], [place] [phone] documented as of this encounter Visit Diagnoses Not on filedocumented in this encounter Care Teams Anesthesia Director Relationship Specialty Start Date End Date Jim Jimenez [address] [place] [address] [place] [address] PCP - General Internal Medicine 04/29/19 documented as of this encounter
--- OUTSIDE RECORDS SUMMARY | 2025-04-13 14:28 | XMS_ITS | Clinical Summary ---
Author Organization [facility] Address [address] [address] Phone Care Team Providers Care Horticulture Supervisor Name Role Phone Jim Jimenez MD Primary Care Provider [phone] Social History Tobacco Use Types Packs/Day Years [...] 2006 OSTEOPOROSIS SCREENING INITI AL (ONE-TIME) 2021 INFLUENZA VACCINE (#1) 2025 , 05/10/2020, 03/23/2019 COVID-19 VACCINE (2024-2 6 season) 2025 11/24/2021, 08/24/2020, 08/03/2020 RSV VACCINE (1 - [...] topic Medical Devices Not on file Insurance Causes TOTAL CHOICE INDEMNITY Causes TOTAL CHOICE INDEMNITY Followap TOTAL CHOICE INDEMNITY Causes TOTAL CHOICE INDEMNITY Followap TOTAL CHOICE INDEMNITY [facility] TOTAL CHOICE INDEMNITY Care Teams Horticulture Supervisor Relationship Specialty Start Date End Date Jim Jimenez MD [address] [place] [address] [place] [address] PCP - General Internal Medicine 07/08/19 Additional Source Comments The information contained in this document represents components of the legal health record. It is not the complete legal health record.[facility]
--- OUTSIDE RECORDS SUMMARY | 2025-04-13 14:28 | XMS_ITS | Patient Health Record ---
Author Organization [facility] Address [address] [place] [address] Care Team Providers Care Customer Sales Specialist Name Role Phone Jim Jimenez MD Primary Care Provider Unavailab Halle Mistry Unavailable [phone] Allergies Allergen (clinical drug ingredient) Drug/Non Drug [...] Acquired cavus deformity of right foot (disorder) (5703795793158 102) Cavus deformity of right foot (Q66.71) Active confirmed Vital Signs Blood pressure diastolic 70 mm Hg 08/13/2024 Height 5ft in 08/13/2024 Blood pressure systolic 112 mm Hg 08/13/2024 Weight 160 lbs 08/13/2024 BMI 31.24 kg/m2 08/13/2024 Encounters Encounter Location Date Provider Diagnosis [address] [address] 05/14/2024 Halle Black Peroneal tendinitis of left lower extremity M76.72 ; Stress fracture of left foot, initial encounter M84.375A ; Localized edema R60.0 ; Parkinson's disease with fluctuating manifestations, unspecified whether dyskinesia present G20.A2 and Pain in left foot M79.[address] [address] 06/10/2024 Halle Black Peroneal tendinitis of left lower extremity M76.72 ; Localized edema R60.0 ; Parkinson's disease with fluctuating manifestations, unspecified whether dyskinesia present G20.A2 ; Pain in left foot M79.672 and Stress fracture of left foot with routine healing, subsequent encounter M84.375D [address] [address] 08/13/2024 Halle Black Peroneal tendinitis of left lower extremity M76.72 ; Stress fracture of left foot with routine healing, subsequent encounter M84.375D ; Localized edema R60.0 ; Parkinson's disease with fluctuating manifestations, unspecified whether dyskinesia present G20.A2 and Pain in left foot M79.672 [facility] [address] [place] [address] 05/12/2024 Halle Black [address] [address] 06/10/2024 Halle Black Assessments Encounter Date Diagnosis [...] Insured Coverage Start Date Coverage End Date [facility] [address] [place] [address] [id number] Wanda Handy Self - patient is the insured Medical (General) History Medical History History ICD Code Arthritis High Blood Pressure Parkinsons disease Psoriasis/eczema thyroid Measles Mumps Chicken pox Surgical History Surgery Date(Month/Year) thyroidectomy 2011 Gastropexy 2021
--- OUTSIDE RECORDS SUMMARY | 2025-04-13 14:28 | XMS_ITS | Clinical Summary ---
Author Organization [facility] Address [address] [place] [address] Care Team Providers Care Eight Section Blower Name Role Phone Jim Jimenez Primary Care Provider [phone] Allergies Active Allergy Reactions Criticality Noted Date Comments Codeine Phosphate Vomiting 01/09/2024 Yzniyzf-Nnbbipchdr-Oir-Caff Nausea,Vomiting 12/2020 Shellfish Derived Hives 07/02/2019 Medications levothyroxine (SYNTHROID, LEVOTHROID) 75 mcg tablet 06/18/2019 Active simvastatin (ZOCOR) 40 mg tablet Take 80 mg by mouth at bed time. 06/18/2019 Active ubidecarenone (coenzyme Q10) 100 mg tablet Take 200 mg by mouth once a day. Active metoprolol succinate XL (TOPROL XL) 50 mg tablet SMARTSI Tablet(s) By Mouth Every Night 04/25/2023 Active carbidopa-levod opa ER/CR (SINEMET ER/CR) 50-200 mg tablet Take 1 tablet by mouth 5 times a day. 150 tablet 11 07/09/2024 Active omeprazole (PriLOSEC) 20 mg capsule Take 20 mg by mouth as needed. 12/28/2024 Active melatonin 3 mg tablet Take 3 mg by mouth nightly as needed for sleep. Active carbidopa-levod opa (SINEMET) 25-100 mg tablet Take 1 tablet by mouth in the morning. 30 tablet 11 01/07/2025 6 Active Active Problems Problem Noted Date Diagnosed Date Dystonia 06/13/2023 Idiopathic Parkinson's disease 07/02/2019 Immunizations Immunization Administration Dates Next Due COVID-19, Pfizer, mRNA, Biva lent Booster, PF, 30 mcg/0.3 mL dose (for age 12 y and up) 05/12/2022 Covid-19, Pfizer, mRNA, Reynolds valent, PF 30 mcg/0.3 mL dose (for ages 12 and older) 03/26/2021,08/24/2020,08/03/2020 Covid-19, Pfizer, mRNA, Reynolds valent, PF, 30 mcg/0.3 mL dose, adam-sucrose [...] Sign Reading Time Taken Comments Blood Pressure 115/88 01/07/2025 12:41 PM EDT Pulse 93 01/07/2025 12:41 PM EDT Temperature 36.7 C (98 F) 01/07/2025 12:37 PM EDT Respiratory Rate 16 01/07/2025 12:37 PM EDT Oxygen Saturation - - Inhaled Oxygen Concentration - - Weight 74.4 kg (164 lb) 01/07/2025 12:37 PM EDT Height 152.4 cm (5') 01/07/2025 12:37 PM EDT Body Mass Index 32.03 01/07/2025 12:37 PM EDT Plan of Treatment Upcoming Encounters Date Type Department Care Team (Late st Contact Info) Description 08/05/2025 2:45 PM EST Office Visit [facility] Building Neurology Clinic [address] [place] [address] Jacquie Dalton MD [address] [place] [address] Internal Medicine [place], [place] [phone] Health Maintenance Due Date Last Done Comments Cologuard 1956 Colon Cancer Screening 1956 Colonoscopy 1956 FOBT / Fit Test 1956 Hepatitis C Screening 1956 Sigmoidoscopy 1956 DTaP,Tdap,and Td Vaccines (1 - Tdap) 1978 Mammogram 1996 Osteoporosis Screening 2006 Pneumococcal Vaccine: 50+ Years (1 of 1 - PCV) 2006 Zoster Vaccines (1 of 2) 2006 Diabetes Screening 04/14/2023 04/14/2020 Alcohol/Substance Use Screening 08/06/2024 Depression Screening and Follow-Up 08/06/2024 Health Care Proxy Review 08/06/2024 Social Drivers of Health Annual Screening 08/06/2024 COVID-19 Vaccine ( season) 2025 04/26/2024, 05/26/2023, 05/12/2022, Additional history exists Influenza Vaccine (#1) 2025 , 05/17/2023, 05/12/2022, Additional history exists RSV Vaccine (60+ years old and patients) (1 - 1-dose 75+ series) 2031 Hepatitis B Vaccines Aged Out No long er eligible based on patient's age to complete this topic Procedures * Due to [place] state law, this organization might not be sharing negative HIV tests. Procedure Name Priority Date/Time Associated Diagnosis Comments COMPREHENSIVE METABOLIC PANEL Routine 04/14/2020 5:46 PM EDT PD (Parkinson's disease) from Last 3 Months or Most Recently Relevant to Health Maintenance Results * Due to [place] [employer] law, this organization might not be sharing negative HIV tests. * (ABNORMAL) Comprehensive Metabolic Panel (04/14/2020 5:46 PM EDT) NA 141 135 - 145 mmol/L 04/14/2020 6:34 PM [facility] K 4.9 3.5 - 5.3 mmol/L 04/14/2020 6:34 PM [facility] Cl 103 97 - 110 mmol/L 04/14/2020 6:34 PM [facility] CO2 30 24 - 32 mmol/L 04/14/2020 6:34 PM [facility] Anion Gap 8 5 - 15 04/14/2020 6:34 PM [facility] Glucose 97 70 - 99 mg/dL 04/14/2020 6:34 PM [facility] Creatinine 0.77 0.50 - 1.20 mg/dL 04/14/2020 6:34 PM [facility] eGFR Non- 82(L) >=90 mL/min/BSA 04/14/2020 6:34 PM [facility] eGFR >90 >=90 mL/min/BSA 04/14/2020 6:34 PM [facility] Comment: Units = mL/min/1.73 m2 Glomerular Filtration Rate (GFR) is estimated based on the CKD-EPI Creatinine Equation (2009). Stage Description GFR 1 Normal >=90 mL/min/BSA 2 Mildly decreased GFR 60-89 mL/min/BSA 3 Moderately decreased GFR 30-59 mL/min/BSA 4 Severely decreased GFR 15-29 mL/min/BSA 5 Kidney Failure <15 mL/min/BSA Calcium 10.0 8.7 - 10.7 mg/dL 04/14/2020 6:34 PM [facility] Total Protein 7.5 6.0 - 8.0 g/dL 04/14/2020 6:34 PM [facility] Albumin 4.7 3.5 - 4.8 g/dL 04/14/2020 6:34 PM [facility] Bilirubin, Total 0.3 0.3 - 1.2 mg/dL 04/14/2020 6:34 PM [facility] Alkaline Phosphatase 59 30 - 115 U/L 04/14/2020 6:34 PM EDT [facility] AST 19 10 - 40 U/L 04/14/2020 6:34 PM EDT [facility] ALT 10 10 - 40 U/L 04/14/2020 6:34 PM EDT [facility] BUN 20 7 - 23 mg/dL 04/14/2020 6:34 PM EDT [facility] Blood Structure of peripheral vein / Unknown Venipuncture / Unknown 04/14/2020 5:46 PM EDT 04/14/2020 6:06 PM EDT Amrit Allred MD PhD LAB BLOOD ORDERABLES Fin al Result [facility] [address] [place] [address], from Last 3 Months or Most Recently Relevant to Health Maintenance Insurance MEDICARE [facility] Care Teams Eight Section Blower Relationship Specialty Start Date End Date Jim Jimenez [address] [place] [address] [place] [address] PCP - General Internal Medicine 04/29/19
--- OUTSIDE RECORDS SUMMARY | 2025-04-13 14:28 | XMS_ITS | Encounter Summary ---
Author Organization [facility] Address [address] [place] [address] Care Team Providers Care Etcher Enameling Name Role Phone Jim Jimenez Primary Care Provider [phone] Encounter Details Date Type Department Care Team (Late st Contact Info) Description 01/01/2022 Garlik Message Intial Department [address] [place] [address] MycharAnte Up, Generic Provider [address] [place], [place] [phone] Questionnaire Submission Social History Tobacco Use Types [...] Description 08/05/2025 2:45 PM EST Office Visit [facility] Neurology Clinic [address] [place] [address] Jacquie Dalton MD [address] [facility] [place] [address] documented as of this encounter Visit Diagnoses Not on filedocumented in this encounter Care Teams Etcher Enameling Relationship Specialty Start Date End Date Jim Jimenez [address] [place] [address] [place] [address] PCP - General Internal Medicine 04/29/19 documented as of this encounter
--- OUTSIDE RECORDS SUMMARY | 2025-04-13 14:28 | XMS_ITS | Encounter Summary ---
Author Organization [facility] Address [address] [place] [address] Care Team Providers Care Microbiology Lab Technician Name Role Phone Jim Jimenez Primary Care Provider [phone] Encounter Details Date Type Department Care Team (Late st Contact Info) Description 05/10/2022 myChart Message [facility] Neurology Clinic [address] [place] [address] Marce Gray MD [address] [place] [address] [place] [address] Follow up to med change Social History [...] Description 08/05/2025 2:45 PM EST Office Visit [facility] Neurology Clinic [address] [place] [address] [phone] Jacquie Dalton MD [address] [place] [address] Internal Medicine [place], [place] [phone] documented as of this encounter Visit Diagnoses Not on filedocumented in this encounter Care Teams Microbiology Lab Technician Relationship Specialty Start Date End Date Jim Jimenez [address] [place] [address] [place] [address] PCP - General Internal Medicine 04/29/19 documented as of this encounter
--- OUTSIDE RECORDS SUMMARY | 2025-04-13 14:29 | XMS_ITS | Patient Health Record ---
Author Organization [facility] Address [address] [place] [address] Care Team Providers Care Coroner'S Juror Name Role Phone Tony (RETIRED) Jim REDDY Primary Care Provider Unavailable Zia Dowd Unavailable [phone] Allergies Allergen (clinical drug ingredient) Drug/Non Drug [...] Problem Screening for malignant neoplasm of colon (833779176) Encounter for screening for malignant neoplasm of colon (Z12.11) Active confirmed Problem History of adenomatous polyp of colon (920194156) History of adenomatous polyp of colon (Z86.010) Active confirmed Problem Preprocedural examination (565997406147061) Preprocedural examination (Z01.818) Active confirmed Problem Family History of Cancer of Colon (Situation) (887895172) Family history of colon cancer (Z80.0) Active confirmed Problem Gastroesophageal reflux disease (447179352) GERD (gastroesophageal reflux disease) (K21.9) Active confirmed Problem Computed tomography of abdomen abnormal (84286639915875121) Abnormal CT scan, stomach (R93.3) Active confirmed Problem Diaphragmatic hernia (50005599) 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) Active confirmed Plan Of Treatment Future Test Test Name Order Date UPPER GI ENDOSCOPY 11/04/2013 COLONOSCOPY 11/04/2013 COLONOSCOPY 07/07/2020 UPPER GI ENDOSCOPY 01/23/2022 Insurance Providers Payer Name Payer Address Payer Phone Subscriber Number Group Number Insured Name Patient Relationship to Insured Coverage Start Date Coverage End Date [employer] [address] [place] [address] [id number] NILES COOK Self - patient is the insured Medicare of [place] [address] [place] [address] [id number] KEVIN Albrecht NILES Self - patient is the insured Medical (General) History Medical History History ICD Code Colonoscopy 08-31-2006--2 small tubular a denomas removed Hypertension Psoriatic arthritis Thyroid cancer--diagnosised in 2011--rig ht thyroidectomy GERD Denies TN,DM,CVA,Lung disease,renal dise ase Hyperlipidemia 12/2013 Upper endo--fairly la rge hiatal hernia with associated reflux esophagitis-biopsies were negative for Wei's esophagus 12/2013-colonoscopy--one smal l tubular adenoma removed and mild diverticulosis Parkinson's disease Hiatal hernia 553.3 Surgical History Surgery Date(Month/Year) Partial throidectomy Tonsillectomy
--- OUTSIDE RECORDS SUMMARY | 2025-04-13 14:29 | XMS_ITS | Encounter Summary ---
Author Organization [facility] Address [address] [place] [address] Care Team Providers Care Die Forger Name Role Phone Jim Jimenez Primary Care Provider [phone] Encounter Details Date Type Department Care Team (Late st Contact Info) Description 11/09/2020 myChart Message [facility] Neurology Clinic [address] [place] [phone] Marce Gray MD [address] [place] [address] RE: MRI Social History Tobacco Use Types [...] Description 08/05/2025 2:45 PM EST Office Visit [facility] Neurology Clinic [address] [place] [address] [phone] Jacquie Dalton MD [address] [place] [address] Internal Medicine [place], [place] [phone] documented as of this encounter Visit Diagnoses Not on filedocumented in this encounter Care Teams Die Forger Relationship Specialty Start Date End Date Jim Jimenez [address] [place] [address] [place] [address] PCP - General Internal Medicine 04/29/19 documented as of this encounter
--- OUTSIDE RECORDS SUMMARY | 2025-04-13 14:29 | XMS_ITS | Encounter Summary ---
Author Organization [facility] Address [address] [place] [address] Care Team Providers Care Physical Therapist Clinic Director Name Role Phone Jim Jimenez Primary Care Provider [phone] Encounter Details Date Type Department Care Team (Late st Contact Info) Description 11/09/2020 Orders Only [facility] Interventional Radiology [address] [place] [address] Jaleesa Nguyen MD [address] [place] [address] Social History Tobacco Use Types Packs/Day Years [...] Description 08/05/2025 2:45 PM EST Office Visit [facility] Building Neurology Clinic [address] [place] [address] Jacquie Dalton MD [address] [place] [address] [place] [address] documented as of this encounter Visit Diagnoses Not on filedocumented in this encounter Care Teams Physical Therapist Clinic Director Relationship Specialty Start Date End Date Jim Jimenez [address] [place] [address] [place] [address] PCP - General Internal Medicine 04/29/19 documented as of this encounter
--- OUTSIDE RECORDS SUMMARY | 2025-04-13 14:29 | XMS_ITS | Encounter Summary ---
Author Organization [facility] Address [address] [place] [address] Care Team Providers Care Mortgage Loan Processing Clerk Name Role Phone Jim Jimenez Primary Care Provider [phone] Encounter Details Date Type Department Care Team (Late st Contact Info) Description 04/20/2020 myChart Message [facility] Neurology Clinic [address] [place] [address] Marce Gray MD [address] [place] [address] [place] [address] RE: Non-Urgent Medical Question Social History Tobacco [...] Description 08/05/2025 2:45 PM EST Office Visit [facility] Neurology Clinic [address] [place] [address] Jacquie Dalton MD [address] [place] [address] Internal Medicine [place], [place] [phone] documented as of this encounter Visit Diagnoses Not on filedocumented in this encounter Care Teams Mortgage Loan Processing Clerk Relationship Specialty Start Date End Date Jim Jimenez [address] [place] [address] [place] [address] PCP - General Internal Medicine 04/29/19 documented as of this encounter
--- OUTSIDE RECORDS SUMMARY | 2025-04-13 14:29 | XMS_ITS | Encounter Summary ---
Author Organization [facility] Address [address] [place] [address] Care Team Providers Care Research Associate Molecular Biology Name Role Phone Jim Jimenez Primary Care Provider [phone] Encounter Details Date Type Department Care Team (Late st Contact Info) Description 04/25/2020 Orders Only [facility] Interventional Radiology [address] [place] [address] Jaleesa Nguyen MD [address] [place] [phone] Social History Tobacco Use Types Packs/Day Years [...] Description 08/05/2025 2:45 PM EST Office Visit [facility] Neurology Clinic [address] [place] [address] Jacquie Dalton MD [address] [place] [address] Internal Medicine [place], [place] [phone] documented as of this encounter Visit Diagnoses Not on filedocumented in this encounter Care Teams Research Associate Molecular Biology Relationship Specialty Start Date End Date Jim Jimenez [address] [place] [address] [place] [address] PCP - General Internal Medicine 04/29/19 documented as of this encounter
--- OUTSIDE RECORDS SUMMARY | 2025-04-13 14:29 | XMS_ITS | Encounter Summary ---
Author Organization [facility] Address [address] [place] [address] Care Team Providers Care Division Toll Wire Chief Name Role Phone Jim Jimenez Primary Care Provider [phone] Encounter Details Date Type Department Care Team (Late st Contact Info) Description 05/20/2020 myChart Message [facility] Neurology Clinic [address] [place] [address] Marce Gray MD [address] [place] [address] [place] [address] RE: Test Results Question Social History Tobacco [...] Description 08/05/2025 2:45 PM EST Office Visit [facility] Neurology Clinic [address] [place] [phone] Jacquie Dalton MD [address] [place] [address] Internal Medicine [place], [place] [phone] documented as of this encounter Visit Diagnoses Not on filedocumented in this encounter Care Teams Division Toll Wire Chief Relationship Specialty Start Date End Date Jim Jimenez [address] [place] [address] [place] [address] PCP - General Internal Medicine 04/29/19 documented as of this encounter
[2025-04-13 15:07] LABS: Alanine Aminotransferase < 6 U/L (0-31); Albumin Level 4.3 g/dL (3.5-5.0); Alkaline Phosphatase 68 U/L (39-117); Anion Gap 14 (12-20); Aspartate Amino Transferase 18 U/L (5-31); Blood Urea Nitrogen 15 mg/dL (9-16); Calcium 9.4 mg/dL (8.4-10.2); Carbon Dioxide 28 mmol/L (22-29); Chloride 105 mmol/L (96-108); Cholesterol 220 mg/dL (<200); Estimated Glomerular Filt Rate > 60; HDL Cholesterol 48 mg/dL (>40); Potassium 4.0 mmol/L (3.3-5.1); Sodium 143 mmol/L (135-145); Total Protein 7.1 g/dL (6.5-8.0); Triglycerides 105 mg/dL (<150)
[2025-04-13 16:04] LABS: Free T4 (Free Thyroxine) 1.30 ng/dL (0.71-1.85)
== END 2025-04-13 11:54 | disposition home or self-care (01) ==
LOC: HO.HMGCLDS 11:53
PROVIDERS: PCP Physician Assistant; Visit Provider Physician Assistant
DX: I10 Essential (primary) hypertension (principal); E78.5 Hyperlipidemia, unspecified; E03.9 Hypothyroidism, unspecified; G20.A1 Parkinson's disease without dyskinesia, without mention of fluctuations
CPT/HCPCS: 36415; 80048; 80061; 80076; 82306; 84439; 84443; 85025

== ENCOUNTER 2025-04-16 10:03 | Outpatient (AMB) | payer OTHER, MEDICARE, SELFPAY ==
[2025-04-16 08:44] VITALS: BP 118/70; PULSE 96; TEMP 36.3; O2SAT 96; BMI 29.5
--- NOTE | 2025-04-16 08:44 | MHC.PC.OV ---
Vital Signs 04/16/25 08:44 Height 5 ft Weight 151 lb BMI 29.5 BP 118/70 Blood Pressure Location Rt brachial Position Sitting Pulse 96 Pulse Source Pulse Oximeter Temp 97.3 F Temp Source Temporal Artery Scan Pulse Oximetry (%) 96 Oxygen Delivery Method Room Air Intake Visit Reasons: 3 Month F/U / Dr Jimenez Furnace Caretaker Required: No Accompanied by: Self / Same As Patient Allergies fish derived (fish) Allergy (Intermediate, Verified 04/16/25 08:45) Rash ibuprofen Allergy (Intermediate, Verified 04/16/25 08:45) nightmares shellfish derived Allergy (Intermediate, Verified 04/16/25 08:45) Hives codeine Adverse Reaction (Intermediate, Verified 04/16/25 08:45) Nausea and Vomiting Medication List - Last Reconciled 04/21/25 by AMELIE Adam acetaminophen 500 mg PO QID PRN calcium carbonate-vitamin D3 600 mg-25 mcg (1,000 unit) 1 cap PO BID carbidopa-levodopa 50-200 mg ER 1 tab orally 5 times per day; coenzyme Q10 (CoQ-10) 100 mg PO DAILY levothyroxine 75 mcg PO DAILY metoprolol succinate ER 50 mg PO BEDTIME omeprazole 20 mg PO DAILY simvastatin 40 mg PO DAILY vitamins A,C,J-jwqs-xtdmui 4,296 mcg-226 mg-90 mg (PreserVision AREDS) 1 cap PO DAILY Tobacco use date assessed: 04/16/25 Fall risk assessment: No Falls in past year Last assessed Fall Risk: 04/16/25 Dental Screening Dental Screen Date: 04/16/25 Did you have a dental visit in the last 12 months?: No Did you have a dental problem in the last 6 months where you did not have access to dental care?: No HPI HPI Comments History of Present Illness Details The patient is a 69-year-old female with HTN, HLD, hypothyroidism, Parkinson's and GERD presenting with management of chronic conditions and new symptoms of shortness of breath on exertion. She has a history of essential hypertension, currently managed with metoprolol, and hyperlipidemia, for which she takes simvastatin. Her cholesterol levels were noted to be elevated at 220 mg/dL, although this was a non-fasting test. The patient has not been taking simvastatin regularly due to a prescription issue, which is being addressed. Her BP today was 1118/70. The patient also has hypothyroidism, managed with thyroid medication, with recent lab results showing a slightly low thyroid level at 0.21, which is being monitored. She has a history of thyroid cancer, and the thyroid level is kept low intentionally due to this history. The patient is followed by [facility] for Parkinson's disease and is on carbidopa-levodopa for management. She reports no recent changes in her Parkinson's symptoms. She has a history of a hiatal hernia and underwent gastropathy a few years ago. She uses omeprazole as needed, typically a couple of times a week, to manage symptoms. The patient reports experiencing shortness of breath on exertion, particularly when climbing stairs, which has been consistent for about a month. She denies any chest pain or palpitations and has used a cardio mobile device, which showed no arrhythmias. The shortness of breath is a new symptom and differs from previous experiences related to her hiatal hernia. Patient was informed and verbally consented to the use of an ambient scribe for clinic note documentation during this visit. [facility] Medical History Hypothyroidism History of COVID-19 Diaphragm paralysis Tubular adenoma of colon (~2006) Hyperlipidemia History of thyroid cancer (~2011) Parkinsons disease Hiatal hernia GERD (gastroesophageal reflux disease) Psoriatic arthritis Hypertension Surgical History History of dilation and curettage (~2001) History of tonsillectomy History of partial thyroidectomy (~2011) History of endoscopy (~2013) History of colonoscopy (~08/30/20) Family History Father Colon cancer Paternal Grandfather Colon cancer Mother HTN (hypertension) DM2 (diabetes mellitus, type 2) Maternal Grandmother Colon cancer Social History Housing: Condominium Are you a primary hospice home care coordinator to a significant other at home: No Do you presently have visiting nurse or other home services: No Patient Tobacco Use Status: Former Tobacco user Tobacco use type: Cigarette e-Cigarette/Vaping Use: Former Use service: No Current occupational status: retired Cognitive needs: No Hearing needs: No Vision needs: Yes (reading glasses) Questionnaire PHQ-9 Over the last 2 weeks, how often have you been bothered by any of the following problems? 1. Little interest or pleasure in doing things: not at all 2. Feeling down, depressed, or hopeless: not at all 3. Trouble falling or staying asleep, or sleeping too much: not at all 4. Feeling tired or having little energy: not at all 5. Poor appetite or overeating: not at all 6. Feeling bad about yourself - or that you are a failure or have let yourself or your family down: not at all 7. Trouble concentrating on things, such as reading the newspaper or watching television: not at all 8. Moving or speaking so slowly that other people could have noticed. Or the opposite - being so fidgety or restless that you have been moving around a lot more than usual: not at all 9. Thoughts that you would be better off or of hurting yourself in some way: not at all Total score: 0 Source: Developed by Drs. Zia Sheldon, Lizzie Rubio, Eric Radford and colleagues, with an educational renée from [employer]. Thrive Questionnaire Date Thrive assessed: 04/16/25 I am a: Patient Within the past 12 months, did the food you bought not last and you didn't have the money to get more?: Never true Within the past 12 months, did you worry whether your food would run out before you got money to buy more?: Never true Do you have trouble paying for medicines?: No Do you have trouble getting transportation to medical appointments?: No Do you have trouble paying your heating and electricity bill?: No Do you have trouble taking care of your child, family member or friend?: No Do you have trouble with day-to-day activities such as bathing, preparing meals, shopping, managing finances, etc.?: No Are you currently unemployed and looking for a job?: No Are you interested in more education?: No THRIVE Score: 0 AUDIT C Alcohol Use Questionnaire (AUDIT-C) 1. How often do you have a drink containing alcohol?: Never 3. How often do you have six or more drinks on one occasion?: Never Total Score: 0 YUNG-7 AMB Questionnaire YUNG-7 Date YUNG - 7 assessed: 04/16/25 Feeling nervous, anxious, or on edge: 0 = Not at all Not being able to stop or control worryin = Not at all Worrying too much about different things: 0 = Not at all Trouble relaxin = Not at all Being so restless that it is hard to sit still: 0 = Not at all Becoming easily annoyed or irritable: 0 = Not at all Feeling afraid as if something awful might happen: 0 = Not at all Total YUNG-7 score (0-4 normal; 5-9 mild; 10-14 moderate; 15-21 severe): 0 Source: Developed by Drs. Zia Sheldon, Lizzie Rubio, Eric Radford and colleagues, with an educational renée from [employer]. Review of Systems Const Details: CONSTITUTIONAL Negative HEAD/NECK Negative EAR/NOSE/MOUTH/THROAT Negative RESPIRATORY Reports dyspnea on exertion for one month CARDIOVASCULAR Denies chest pain, palpitations GASTROINTESTINAL Reports use of omeprazole as needed for hiatal hernia NEUROLOGICAL Denies changes in Parkinson's symptoms PSYCHIATRIC Negative Physical exam (Primary Care) Vital Signs: Last Vital Signs Temp 97.3 F 04/16/25 08:44 Pulse 96 04/16/25 08:44 BP 118/70 04/16/25 08:44 Pulse Ox 96 04/16/25 08:44 Oxygen Delivery Method Room Air 04/16/25 08:44 BMI result Body Mass Index 29.5 GENERAL Well developed, Well nourished, in no apparent distress HEENT Head-Normocephalic Eyes- PERRLA, EOMI, Conjuctiva clear, lids WNL Ears- Canals clear, TMs WNL Mouth/Throat-No lesions, no erythema, no exudate Neck- Supple, No lymphadenopathy, thyroid WNL RESPIRATORY Normal I:E, Clear to auscultation CARDIOVASCULAR Regular, rate and rhythm, No murmurs or rubs GASTROINTESTINAL Soft, nontender, normal bowel sounds, no masses NEUROLOGICAL Gait normal PSYCHIATRIC Oriented to person, place and time Mood and affect WNL Appearance WNL Speech WNL Thought processes WNL Tobacco/Smoking Status: Tobacco use Status Tobacco use date assessed 04/16/25 04/16/25 08:46 Patient Tobacco Use Status Former Tobacco user 04/16/25 08:46 Tobacco use type Cigarette 04/16/25 08:46 e-Cigarette/Vaping Use Former Use 04/16/25 10:18 PHQ-9: PHQ-9 Score PHQ-9: Total score 0 04/16/25 10:18 Thrive Assessment: Date of Thrive Assessment Date Thrive assessed 04/16/25 04/16/25 08:50 Coding Level of Care Code Established Pt Est Pt Level 4 (37876) Patient Type Established Diagnoses Primary hypertension I10 Hypertension type: primary hypertension Shortness of breath on exertion R06.02 Pure hypercholesterolemia E78.00 Hyperlipidemia type: pure hypercholesterolemia Postoperative hypothyroidism E89.0 Hypothyroidism type: postoperative GERD (gastroesophageal reflux disease) K21.9 Parkinsons disease G20 Time Spent (min) 35 Comment Time spent on Chart review, medication reconciliation, H&P, patient education and orders Assessment & Plan Assessment & Plan (1) Hypertension: Comment: BP today was 118/76 Code(s): I10 - Essential (primary) hypertension Category: Medical Qualifiers: Hypertension type: primary hypertension Qualified Code(s): I10 - Essential (primary) hypertension Plan: The patient's essential hypertension is managed with metoprolol, and no changes to the medication regimen were discussed during this visit. Patient will continue current medications. Will monitor. Patient will follow up in 6 months. (2) Shortness of breath on exertion: Code(s): R06.02 - Shortness of breath Category: Medical Plan: The patient reports shortness of breath on exertion, particularly when climbing stairs, which has been consistent for about a month. Lab work was ordered. An echocardiogram and pulmonary function tests are planned to evaluate the cause. Follow-up is scheduled in eight weeks to review test results and determine further management. (3) Hyperlipidemia: Comment: On simvastatin Code(s): E78.5 - Hyperlipidemia, unspecified Category: Medical Qualifiers: Hyperlipidemia type: pure hypercholesterolemia Qualified Code(s): E78.00 - Pure hypercholesterolemia, unspecified Plan: The patient has hyperlipidemia with a cholesterol level of 220 mg/dL, noted during a non-fasting test. The patient has not been taking simvastatin regularly due to a prescription issue, which is being addressed. A follow-up fasting cholesterol test is planned in six weeks. (4) Hypothyroidism: Comment: Lab on 04/13/25 shows TSH of 0.21 Code(s): E03.9 - Hypothyroidism, unspecified Category: Medical Qualifiers: Hypothyroidism type: postoperative Qualified Code(s): E89.0 - Postprocedural hypothyroidism Plan: The patient's hypothyroidism is managed with thyroid medication. Recent labs showed a thyroid level of 0.21, which is slightly low. The plan is to recheck the thyroid level in six to eight weeks and adjust the medication if necessary. (5) GERD (gastroesophageal reflux disease): Code(s): K21.9 - Gastro-esophageal reflux disease without esophagitis Category: Medical Plan: The patient manages her hiatal hernia with omeprazole as needed, typically using it a couple of times a week. No changes to this management plan were discussed. (6) Parkinsons disease: Code(s): G20 - Parkinson's disease Category: Medical Plan: The patient is followed by [facility] for Parkinson's disease and is on carbidopa-levodopa. No changes in symptoms were reported, and no adjustments to the treatment plan were discussed. Plan During the visit, we discussed the management of the patient's chronic conditions, including hypertension, hyperlipidemia, hypothyroidism, and Parkinson's disease. We also addressed her new symptom of shortness of breath on exertion. I recommended an echocardiogram and pulmonary function tests to evaluate the cause of her dyspnea. We plan to follow up in eight weeks to review the test results and adjust her treatment plan as necessary. Additionally, we discussed the importance of medication adherence, particularly with simvastatin, and arranged for a prescription refill. The patient was advised to have a fasting cholesterol test and thyroid level check in six weeks. Orders: Orders Lipid Panel 04/16/25 E78.5 - Hyperlipidemia, unspecified, Z79.899 - Other usp (current) drug therapy Pulmonary Test/Procedure Today R06.02 - Shortness of breath TSH reflex Free T4 04/16/25 E03.9 - Hypothyroidism, unspecified Hemoglobin A1c 04/16/25 R73.9 - Hyperglycemia, unspecified CA echo transthoracic complete Today R06.02 - Shortness of breath Medications: New metoprolol succinate ER 50 mg PO BEDTIME 90 tabs 1RF omeprazole 20 mg PO DAILY 90 caps 1RF simvastatin 40 mg PO DAILY 90 tabs 2RF Refilled calcium carbonate-vitamin D3 600 mg-25 mcg (1,000 unit) 1 cap PO BID 90 caps 1RF Patient Instructions: - Continue taking metoprolol and thyroid medication as prescribed. - Resume simvastatin once the prescription is refilled. - Use omeprazole as needed for hiatal hernia symptoms. - Schedule and complete an echocardiogram and pulmonary function tests. - Return for follow-up in eight weeks to review test results. - Have a fasting cholesterol test and thyroid level check in six weeks.
--- OUTSIDE RECORDS SUMMARY | 2025-04-16 12:09 | XMS_ITS | Clinical Summary ---
Author Organization [facility] Address [address] [address] Phone Care Team Providers Care Information Systems Technician Name Role Phone Jim Jimenez MD Primary Care Provider [phone] Social History Tobacco Use Types Packs/Day Years [...] topic Medical Devices Not on file Insurance [employer] TOTAL CHOICE INDEMNITY [employer] TOTAL CHOICE INDEMNITY [employer] TOTAL CHOICE INDEMNITY [employer] TOTAL CHOICE INDEMNITY [employer] TOTAL CHOICE INDEMNITY [facility] TOTAL CHOICE INDEMNITY Care Teams Information Systems Technician Relationship Specialty Start Date End Date Jim Jimenez MD [address] [place] [address] [place] [address] PCP - General Internal Medicine 07/08/19 Additional Source Comments The information contained in this document represents components of the legal health record. It is not the complete legal health record.[facility]
--- OUTSIDE RECORDS SUMMARY | 2025-04-16 12:09 | XMS_ITS | Encounter Summary ---
Author Organization [facility] Address [address] [place] [address] Care Team Providers Care Restaurant Shift Supervisor Name Role Phone Jim Jimenez Primary Care Provider [phone] Encounter Details Date Type Department Care Team (Late st Contact Info) Description 08/03/2022 myChart Message [facility] [address] [place] [address] Marce Gray MD [address] [place] [address] [place] [address] Clinical trials Social History Tobacco Use Types [...] Description 08/05/2025 2:45 PM EST Office Visit [facility] [address] [place] [address] Jacquie Dalton MD [address] [place] [address] Internal Medicine [place], [place] [phone] documented as of this encounter Visit Diagnoses Not on filedocumented in this encounter Care Teams Restaurant Shift Supervisor Relationship Specialty Start Date End Date Jim Jimenez [address] [place] [address] [place] [address] PCP - General Internal Medicine 04/29/19 documented as of this encounter
--- OUTSIDE RECORDS SUMMARY | 2025-04-16 12:09 | XMS_ITS | Patient Health Record ---
Author Organization [facility] Address [address] [place] [address] Care Team Providers Care Powertrain Design Engineer Name Role Phone Jim Jimenez MD Primary Care Provider Unavailab Halle Mistry Unavailable [phone] Allergies Allergen (clinical drug ingredient) Drug/Non Drug [...] Acquired cavus deformity of right foot (disorder) ([id number]) Cavus deformity of right foot (Q66.71) Active confirmed Vital Signs Blood pressure diastolic 70 mm Hg 08/13/2024 Height 5ft in 08/13/2024 Blood pressure systolic 112 mm Hg 08/13/2024 Weight 160 lbs 08/13/2024 BMI 31.24 kg/m2 08/13/2024 Encounters Encounter Location Date Provider Diagnosis [address] [address] 05/14/2024 Halle Black Peroneal tendinitis of left lower extremity M76.72 ; Stress fracture of left foot, initial encounter M84.375A ; Localized edema R60.0 ; Parkinson's disease with fluctuating manifestations, unspecified whether dyskinesia present G20.A2 and Pain in left foot M79.[address] [address] 06/10/2024 Halle Black Peroneal tendinitis of left lower extremity M76.72 ; Localized edema R60.0 ; Parkinson's disease with fluctuating manifestations, unspecified whether dyskinesia present G20.A2 ; Pain in left foot M79.672 and Stress fracture of left foot with routine healing, subsequent encounter M84.375D [address] [address] 08/13/2024 Halle Black Peroneal tendinitis of left lower extremity M76.72 ; Stress fracture of left foot with routine healing, subsequent encounter M84.375D ; Localized edema R60.0 ; Parkinson's disease with fluctuating manifestations, unspecified whether dyskinesia present G20.A2 and Pain in left foot M79.672 [facility] [address] [place] [address] 05/12/2024 Halle Black [address] [address] 06/10/2024 Halle Black Assessments Encounter Date Diagnosis [...] Insured Coverage Start Date Coverage End Date [facility] [address] [place] [address] [id number] Wanda Handy Self - patient is the insured Medical (General) History Medical History History ICD Code Arthritis High Blood Pressure Parkinsons disease Psoriasis/eczema thyroid Measles Mumps Chicken pox Surgical History Surgery Date(Month/Year) thyroidectomy 2011 Gastropexy 2021
--- OUTSIDE RECORDS SUMMARY | 2025-04-16 12:09 | XMS_ITS | Encounter Summary ---
Author Organization [facility] Address [address] [place] [address] Care Team Providers Care Salesperson Flowers Name Role Phone Jim Jimenez Primary Care Provider [phone] Encounter Details Date Type Department Care Team (Late st Contact Info) Description 01/01/2022 [facility] Message Intial Department [address] [place] [address] MycharCam[employer]ent, Generic Provider [address] [place], [place] [phone] Questionnaire Submission Social History Tobacco Use Types [...] Description 08/05/2025 2:45 PM EST Office Visit [facility] [address] [place] [address] Jacquie Dalton MD [address] [facility] [place] [address] documented as of this encounter Visit Diagnoses Not on filedocumented in this encounter Care Teams Salesperson Flowers Relationship Specialty Start Date End Date Jim Jimenez [address] [place] [address] [place] [address] PCP - General Internal Medicine 04/29/19 documented as of this encounter
--- OUTSIDE RECORDS SUMMARY | 2025-04-16 12:09 | XMS_ITS | Encounter Summary ---
Author Organization [facility] Address [address] [place] [address] Care Team Providers Care Aircraft Accessories Mechanic Name Role Phone Jim Jimenez Primary Care Provider [phone] Reason for Visit * Reason Onset Date Comments Study call with 06/13/2021 Encounter Details Date Type Department Care Team ([facility] st Contact Info) Description 06/13/2021 Telephone [facility] Central Scheduling Department [address] [place] [address] Neurology, Unv [address] [place] [address] Study call with Social History Tobacco Use [...] parkinson'sand would like for prov to call [phone] documented in this encounter Plan of Treatment Upcoming Encounters Date Type Department Care Team (Late st Contact Info) Description 08/05/2025 2:45 PM EST Office Visit [facility] Neurology Clinic [address] [place], [place] [phone] Jacquie Dalton MD [address] [place] [address] Internal [place], [place] [phone] documented as of this encounter Visit Diagnoses Not on filedocumented in this encounter Care Teams Aircraft Accessories Mechanic Relationship Specialty Start Date End Date Jim Jimenez [address] [place] [address] [place] [address] PCP - General Internal Medicine 04/29/19 documented as of this encounter
--- OUTSIDE RECORDS SUMMARY | 2025-04-16 12:09 | XMS_ITS | Encounter Summary ---
Author Organization [facility] Address [address] [place] [address] Care Team Providers Care Night Stocker Name Role Phone Jim Jimenez Primary Care Provider [phone] Encounter Details Date Type Department Care Team (Late st Contact Info) Description 05/10/2022 myChart Message [facility] [address] [place] [address] Marce Gray MD [address] [place] [address] [place] [address] Follow up to med change Social History [...] Description 08/05/2025 2:45 PM EST Office Visit [facility] [address] [place] [phone] Jacquie Dalton MD [address] [place] [address] Internal Medicine [place], [place] [phone] documented as of this encounter Visit Diagnoses Not on filedocumented in this encounter Care Teams Night Stocker Relationship Specialty Start Date End Date Jim Jimenez [address] [place] [address] [place] [address] PCP - General Internal Medicine 04/29/19 documented as of this encounter
--- OUTSIDE RECORDS SUMMARY | 2025-04-16 12:09 | XMS_ITS | Encounter Summary ---
Author Organization [facility] Address [address] [place] [address] Care Team Providers Care Farm Tractor Operator Name Role Phone Jim Jimenez Primary Care Provider [phone] Encounter Details Date Type Department Care Team (Late st Contact Info) Description 04/27/2022 myChart Message [facility] Neurology Clinic [address] [place] [phone] Marce Gray MD [address] [place] [address] [place] [address] Off periods Social History Tobacco Use Types [...] Description 08/05/2025 2:45 PM EST Office Visit [facility] Neu[facility] [address] [place] [address] Jacquie Dalton MD [address] [place] [address] Internal Medicine [place], [place] [phone] documented as of this encounter Visit Diagnoses Not on filedocumented in this encounter Care Teams Farm Tractor Operator Relationship Specialty Start Date End Date Jim Jimenez [address] [place] [address] [place] [address] PCP - General Internal Medicine 04/29/19 documented as of this encounter
--- OUTSIDE RECORDS SUMMARY | 2025-04-16 12:10 | XMS_ITS | Encounter Summary ---
Author Organization [facility] Address [address] [place] [address] Care Team Providers Care Burr Filer Name Role Phone Jim Jimenez Primary Care Provider [phone] Encounter Details Date Type Department Care Team (Late st Contact Info) Description 11/09/2020 Orders Only [facility] Interventional Radiology [address] [place] [address] Jaleesa Nguyen MD [address] [place] [address] Social History Tobacco Use Types Packs/Day Years [...] Description 08/05/2025 2:45 PM EST Office Visit [facility] Neurology Clinic [address] [place] [address] Jacquie Dalton MD [address] [place] [address] [place] [address] documented as of this encounter Visit Diagnoses Not on filedocumented in this encounter Care Teams Burr Filer Relationship Specialty Start Date End Date Jim Jimenez [address] [place] [address] [place] [address] PCP - General Internal Medicine 04/29/19 documented as of this encounter
--- OUTSIDE RECORDS SUMMARY | 2025-04-16 12:10 | XMS_ITS | Encounter Summary ---
Author Organization [facility] Address [address] [place] [address] Care Team Providers Care Cmm Inspector Name Role Phone Jim Jimenez Primary Care Provider [phone] Encounter Details Date Type Department Care Team (Late st Contact Info) Description 05/20/2020 myChart Message [facility] [address] [place] [address] Marce Gray MD [address] [place] [address] [place] [address] RE: Test Results Question Social History Tobacco [...] Description 08/05/2025 2:45 PM EST Office Visit [facility] [address] [place] [address] [phone] Jacquie Dalton MD [address] [place] [address] Internal Medicine [place], [place] [phone] documented as of this encounter Visit Diagnoses Not on filedocumented in this encounter Care Teams Cmm Inspector Relationship Specialty Start Date End Date Jim Jimenez [address] [place] [address] [place] [address] PCP - General Internal Medicine 04/29/19 documented as of this encounter
--- OUTSIDE RECORDS SUMMARY | 2025-04-16 12:10 | XMS_ITS | Encounter Summary ---
Author Organization [facility] Address [address] [place] [address] Care Team Providers Care Break And Load Operator Name Role Phone Jim Jimenez Primary Care Provider [phone] Encounter Details Date Type Department Care Team (Late st Contact Info) Description 04/25/2020 Orders Only [facility] Interventional Radiology [address] [place] [address] Jaleesa Nguyen MD [address] [place] [address] Social History Tobacco Use Types Packs/Day Years [...] Description 08/05/2025 2:45 PM EST Office Visit [facility] Neu[facility] Clinic [address] [place] [address] Jacquie Dalton MD [address] [place] [address] Internal Medicine [place], [place] [phone] documented as of this encounter Visit Diagnoses Not on filedocumented in this encounter Care Teams Break And Load Operator Relationship Specialty Start Date End Date Jim Jimenez [address] [place] [address] [place] [address] PCP - General Internal Medicine 04/29/19 documented as of this encounter
--- OUTSIDE RECORDS SUMMARY | 2025-04-16 12:10 | XMS_ITS | Patient Health Record ---
Author Organization [facility] Address [address] [place] [address] Care Team Providers Care Metal Cutter Name Role Phone Tony (RETIRED) Jim REDDY Primary Care Provider Unavailable Zia Dowd Unavailable [phone] Allergies Allergen (clinical drug ingredient) Drug/Non Drug [...] Problem Screening for malignant neoplasm of colon (007835006) Encounter for screening for malignant neoplasm of colon (Z12.11) Active confirmed Problem History of adenomatous polyp of colon (673550925) History of adenomatous polyp of colon (Z86.010) Active confirmed Problem Preprocedural examination (112097398931649) Preprocedural examination (Z01.818) Active confirmed Problem Family History of Cancer of Colon (Situation) (713217682) Family history of colon cancer (Z80.0) Active confirmed Problem Gastroesophageal reflux disease (723494193) GERD (gastroesophageal reflux disease) (K21.9) Active confirmed Problem Computed tomography of abdomen abnormal (58911181603263178) Abnormal CT scan, stomach (R93.3) Active confirmed Problem Diaphragmatic hernia (79180792) 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) Active confirmed Plan Of Treatment Future Test Test Name Order Date UPPER GI ENDOSCOPY 11/04/2013 COLONOSCOPY 11/04/2013 COLONOSCOPY 07/07/2020 UPPER GI ENDOSCOPY 01/23/2022 Insurance Providers Payer Name Payer Address Payer Phone Subscriber Number Group Number Insured Name Patient Relationship to Insured Coverage Start Date Coverage End Date [employer] [address] [place] [address] [id number] NILES COOK Self - patient is the insured Medicare of [place] [address] [place] [address] [id number] KEVIN Albrecht NILES Self - patient is the insured Medical (General) History Medical History History ICD Code Colonoscopy 08-31-2006--2 small tubular a denomas removed Hypertension Psoriatic arthritis Thyroid cancer--diagnosised in 2011--rig ht thyroidectomy GERD Denies MT,DM,CVA,Lung disease,renal dise ase Hyperlipidemia 12/2013 Upper endo--fairly la rge hiatal hernia with associated reflux esophagitis-biopsies were negative for Wei's esophagus 12/2013-colonoscopy--one smal l tubular adenoma removed and mild diverticulosis Parkinson's disease Hiatal hernia 553.3 Surgical History Surgery Date(Month/Year) Partial throidectomy Tonsillectomy
--- OUTSIDE RECORDS SUMMARY | 2025-04-16 12:10 | XMS_ITS | Encounter Summary ---
Author Organization [facility] Address [address] [place] [address] Care Team Providers Care Leather Cartridge Belt Maker Name Role Phone Jim Jimenez Primary Care Provider [phone] Encounter Details Date Type Department Care Team (Late st Contact Info) Description 04/20/2020 myChart Message [facility] Neurology Clinic [address] [place] [address] Marce Gray MD [address] [place] [address] [place] [address] RE: Non-Urgent Medical Question Social History Tobacco [...] Description 08/05/2025 2:45 PM EST Office Visit [facility] Neurology Clinic [address] [place] [address] Jacquie Dalton MD [address] [place] [address] Internal Medicine [place], [place] [phone] documented as of this encounter Visit Diagnoses Not on filedocumented in this encounter Care Teams Leather Cartridge Belt Maker Relationship Specialty Start Date End Date Jim Jimenez [address] [place] [address] [place] [address] PCP - General Internal Medicine 04/29/19 documented as of this encounter
--- OUTSIDE RECORDS SUMMARY | 2025-04-16 12:10 | XMS_ITS | Clinical Summary ---
Author Organization [facility] Address [address] [place] [address] Care Team Providers Care Audiology Director Name Role Phone Jim Jimenez Primary Care Provider [phone] Allergies Active Allergy Reactions Criticality Noted Date Comments Codeine Phosphate Vomiting 01/09/2024 Cjayszq-Wzmtzzqazy-Gic-Caff Nausea,Vomiting 12/2020 Shellfish Derived Hives 07/02/2019 Medications [...] y and up) 05/12/2022 Covid-19, Pfizer, mRNA, [place] valent, PF 30 mcg/0.3 mL dose (for ages 12 and older) 03/26/2021,08/24/2020,08/03/2020 Covid-19, Pfizer, mRNA, Hawkins valent, PF, 30 mcg/0.3 mL dose, adam-sucrose [...] Description 08/05/2025 2:45 PM EST Office Visit [facility] Neurology Clinic [address] [place] [address] Jacquie Dalton MD [address] [place] [address] Internal Medicine [place], [place] [phone] Health Maintenance Due Date Last Done Comments [...] complete this topic Procedures * Due to [place] state law, this organization might not be sharing negative HIV tests. Procedure Name Priority Date/Time Associated Diagnosis Comments COMPREHENSIVE METABOLIC PANEL Routine 04/14/2020 5:46 PM EDT PD (Parkinson's disease) from Last 3 Months or Most Recently Relevant to Health Maintenance Results * Due to [place] [employer] law, this organization might not be sharing negative HIV tests. * (ABNORMAL) Comprehensive Metabolic Panel (04/14/2020 5:46 PM EDT) NA 141 135 - 145 mmol/L 04/14/2020 6:34 PM [facility] K 4.9 3.5 - 5.3 mmol/L 04/14/2020 6:34 PM [facility] Cl 103 97 - 110 mmol/L 04/14/2020 6:34 PM [facility] CO2 30 24 - 32 mmol/L 04/14/2020 6:34 PM [facility] Anion Gap 8 5 - 15 04/14/2020 6:34 PM [facility] Glucose 97 70 - 99 mg/dL 04/14/2020 6:34 PM [facility] Creatinine 0.77 0.50 - 1.20 mg/dL 04/14/2020 6:34 PM [facility] eGFR Non- 82(L) >=90 mL/min/BSA 04/14/2020 6:34 PM [facility] eGFR >90 >=90 mL/min/BSA 04/14/2020 6:34 PM [facility] Comment: Units = mL/min/1.73 m2 Glomerular Filtration Rate (GFR) is estimated based on the CKD-EPI Creatinine Equation (2009). Stage Description GFR 1 Normal >=90 mL/min/BSA 2 Mildly decreased GFR 60-89 mL/min/BSA 3 Moderately decreased GFR 30-59 mL/min/BSA 4 Severely decreased GFR 15-29 mL/min/BSA 5 Kidney Failure <15 mL/min/BSA Calcium 10.0 8.7 - 10.7 mg/dL 04/14/2020 6:34 PM [facility] Total Protein 7.5 6.0 - 8.0 g/dL 04/14/2020 6:34 PM [facility] Albumin 4.7 3.5 - 4.8 g/dL 04/14/2020 6:34 PM [facility] Bilirubin, Total 0.3 0.3 - 1.2 mg/dL 04/14/2020 6:34 PM [facility] Alkaline Phosphatase 59 30 - 115 U/L 04/14/2020 6:34 PM EDT [facility] AST 19 10 - 40 U/L 04/14/2020 6:34 PM EDT [facility] ALT 10 10 - 40 U/L 04/14/2020 6:34 PM EDT [facility] BUN 20 7 - 23 mg/dL 04/14/2020 6:34 PM EDT [facility] Blood Structure of peripheral vein / Unknown Venipuncture / Unknown 04/14/2020 5:46 PM EDT 04/14/2020 6:06 PM EDT Amrit Allred MD PhD LAB BLOOD ORDERABLES Fin al Result [facility] [address] [place] [address], from Last 3 Months or Most Recently Relevant to Health Maintenance Insurance MEDICARE [facility] [place] [id number] Care Teams Audiology Director Relationship Specialty Start Date End Date Jim Jimenez [address] [place] [address] [place] [address] PCP - General Internal Medicine 04/29/19
--- OUTSIDE RECORDS SUMMARY | 2025-04-16 12:10 | XMS_ITS | Encounter Summary ---
Author Organization [facility] Address [address] [place] [address] Care Team Providers Care Infrastructure Engineer Name Role Phone Jim Jimenez Primary Care Provider [phone] Encounter Details Date Type Department Care Team (Late st Contact Info) Description 11/09/2020 myChart Message [facility] Neurology Clinic [address] [place] [address] [phone] Marce Gray MD [address] [place] [phone] RE: MRI Social History Tobacco Use Types [...] Description 08/05/2025 2:45 PM EST Office Visit [facility] Neurology Clinic [address] [place] [address] [phone] Jacquie Dalton MD [address] [place] [address] Internal Medicine [place], [place] [phone] documented as of this encounter Visit Diagnoses Not on filedocumented in this encounter Care Teams Infrastructure Engineer Relationship Specialty Start Date End Date Jim Jimenez [address] [place] [address] [place] [address] PCP - General Internal Medicine 04/29/19 documented as of this encounter
== END 2025-04-16 10:53 | disposition home or self-care (01) ==
LOC: HO.HMCHD 10:04
PROVIDERS: PCP Physician Assistant Medical; Visit Provider Physician Assistant Medical
DX: I10 Essential (primary) hypertension (principal); R06.02 Shortness of breath; G20.C Parkinsonism, unspecified; E78.00 Pure hypercholesterolemia, unspecified; E89.0 Postprocedural hypothyroidism; K21.9 Gastro-esophageal reflux disease without esophagitis

== ENCOUNTER 2025-05-20 13:10 | Outpatient (REF) | payer MEDICARE, OTHER, SELFPAY ==
--- NOTE | ~2025-05-20 | MM_ITS ---
EXAMINATION: DXA BONE DENSITY AXIAL HISTORY: Z78.0 - Asymptomatic menopausal state TECHNIQUE: Insem Spa Dual energy absorptiometry (DEXA) of the lumbar spine, total left hip, and femoral neck was performed. COMPARISON: Comparison is made with the prior examination dated 12/18/2007. FINDINGS: The bone mineral density of the lumbar spine is 1.086 g/cm2, corresponding to a T-score of -0.8, and a Z-score of 0.8. This is indicative of normal bone mineral density. This represents a BMD change of -9.6% compared to the prior exam. This is statistically significant. The bone mineral density of the left total hip is 0.830 g/cm2, corresponding to a T-score of -1.4, and a Z-score of -0.1. This is indicative of osteopenia. This represents a BMD change of -20.2% compared to the prior exam. This is statistically significant. The bone mineral density of the left femoral neck is 0.729 g/cm2, corresponding to a T-score of -2.2, and a Z-score of -0.7. This is indicative of osteopenia. This represents a BMD change of -14.3% compared to the prior exam. FRACTURE RISK: The FRAX index suggests a ten year probability of major osteoporotic fracture of 20.0%, and of hip fracture 4.1%. MM/XR DEXA axial skeleton IMPRESSION: Based on bone mineral density, and according to World Health Organization (WHO) criteria, the diagnosis is consistent with osteopenia. Statistically, 68% of repeat scans fall within 1 SD (+/- 0.010 g/cm2 for AP spine L1-L4) and 1 SD (+/- 0.012 g/cm2 for femur total) FRAX is a trademark of the [employer]'s [place] [facility] Metabolic [employer] Disease, a World Health Organization (WHO) Collaborating Center. Electronically signed by: Zia Marcelo MD 05/20/2025 01:47 PM EDT
--- OUTSIDE RECORDS SUMMARY | 2025-05-20 16:51 | XMS_ITS | Encounter Summary ---
Author Organization [facility] Address [address] [place] [address] Care Team Providers Care Corporate Associate Name Role Phone Jim Jimenez Primary Care Provider [phone] Encounter Details Date Type Department Care Team (Late st Contact Info) Description 01/01/2022 [employer] Message Intial Department [address] [place] [address] [employer], Generic Provider [address] [place], [place] [phone] Questionnaire Submission Social History Tobacco Use Types [...] 2:45 PM EST Office Visit [facility] Neurology Clinic [address] [place] [address] Jacquie Dalton MD [address] [facility] [place] [address] documented as of this encounter Visit Diagnoses Not on filedocumented in this encounter Care Teams Corporate Associate Relationship Specialty Start Date End Date Jim Jimenez [address] [place] [address] [place] [address] PCP - General Internal Medicine 04/29/19 documented as of this encounter
--- OUTSIDE RECORDS SUMMARY | 2025-05-20 16:51 | XMS_ITS | Encounter Summary ---
Author Organization [facility] Address [address] [place] [address] Care Team Providers Care Hadoop Administrator Name Role Phone Jim Jimenez Primary Care Provider [phone] Reason for Visit * Reason Onset Date Comments Study call with 06/13/2021 Encounter Details Date Type Department Care Team ([facility] st Contact Info) Description 06/13/2021 Telephone [facility] Central Scheduling Department [address] [place] [address] Neurology, Unv [address] [place] [phone] Study call with Social History Tobacco Use [...] parkinson'sand would like for prov to call [phone] documented in this encounter Plan of Treatment Upcoming Encounters Date Type Department Care Team (Late st Contact Info) Description 08/05/2025 2:45 PM EST Office Visit [facility] Neurology Clinic [address] [place], [place] [phone] Jacquie Dalton MD [address] [place] [address] Internal [place], [place] [phone] documented as of this encounter Visit Diagnoses Not on filedocumented in this encounter Care Teams Hadoop Administrator Relationship Specialty Start Date End Date Jim Jimenez [address] [place] [address] [place] [address] PCP - General Internal Medicine 04/29/19 documented as of this encounter
--- OUTSIDE RECORDS SUMMARY | 2025-05-20 16:52 | XMS_ITS | Encounter Summary ---
Author Organization [facility] Address [address] [place] [address] Care Team Providers Care Internal Combustion Engine Subassembler Name Role Phone Jim Jimenez Primary Care Provider [phone] Encounter Details Date Type Department Care Team (Late st Contact Info) Description 04/27/2022 myChart Message [facility] Neurology Clinic [address] [place] [address] Marce Gray MD [address] [place] [address] [place] [address] Off periods Social History Tobacco Use Types [...] 08/05/2025 2:45 PM EST Office Visit [facility]rology Clinic [address] [place] [address] Jacquie Dalton MD [address] [place] [address] Internal Medicine [place], [place] [phone] documented as of this encounter Visit Diagnoses Not on filedocumented in this encounter Care Teams Internal Combustion Engine Subassembler Relationship Specialty Start Date End Date Jim Jimenez [address] [place] [address] [place] [address] PCP - General Internal Medicine 04/29/19 documented as of this encounter
--- OUTSIDE RECORDS SUMMARY | 2025-05-20 16:52 | XMS_ITS | Encounter Summary ---
Author Organization [facility] Address [address] [place] [address] Care Team Providers Care Chief Catalyst Operator Name Role Phone Jim Jimenez Primary Care Provider [phone] Encounter Details Date Type Department Care Team (Late st Contact Info) Description 11/09/2020 myChart Message [facility] Neurology Clinic [address] [place] [address] [phone] Marce Gray MD [address] [place] [phone] RE: MRI Social History Tobacco Use Types [...] Description 08/05/2025 2:45 PM EST Office Visit [facility]rology Clinic [address] [place] [address] [phone] Jacquie Dalton MD [address] [place] [address] Internal Medicine [place], [place] [phone] documented as of this encounter Visit Diagnoses Not on filedocumented in this encounter Care Teams Chief Catalyst Operator Relationship Specialty Start Date End Date Jim Jimenez [address] [place] [address] [place] [address] PCP - General Internal Medicine 04/29/19 documented as of this encounter
--- OUTSIDE RECORDS SUMMARY | 2025-05-20 16:52 | XMS_ITS | Clinical Summary ---
Author Organization [facility] Address [address] [address] Phone Care Team Providers Care Countersinker Balance Screw Hole Name Role Phone Jim Jimenez MD Primary Care Provider [phone] Social History Tobacco Use Types Packs/Day Years [...] topic Medical Devices Not on file Insurance [employer] TOTAL CHOICE INDEMNITY [employer] TOTAL CHOICE INDEMNITY [employer] TOTAL CHOICE INDEMNITY [employer] TOTAL CHOICE INDEMNITY [employer] TOTAL CHOICE INDEMNITY [facility] TOTAL CHOICE INDEMNITY Care Teams Countersinker Balance Screw Hole Relationship Specialty Start Date End Date Jim Jimenez MD [address] [place] [address] [place] [address] PCP - General Internal Medicine 07/08/19 Additional Source Comments The information contained in this document represents components of the legal health record. It is not the complete legal health record.[facility]
--- OUTSIDE RECORDS SUMMARY | 2025-05-20 16:52 | XMS_ITS | Encounter Summary ---
Author Organization [facility] Address [address] [place] [address] Care Team Providers Care Staff Rn Name Role Phone Jim Jimenez Primary Care Provider [phone] Encounter Details Date Type Department Care Team (Late st Contact Info) Description 05/20/2020 myChart Message [facility] Neurology Clinic [address] [place] [address] Marce Gray MD [address] [place] [address] [place] [address] RE: Test Results Question Social History Tobacco [...] Description 08/05/2025 2:45 PM EST Office Visit [facility] Neurology Clinic [address] [place] [address] [phone] Jacquie Dalton MD [address] [place] [address] Internal Medicine [place], [place] [phone] documented as of this encounter Visit Diagnoses Not on filedocumented in this encounter Care Teams Staff Rn Relationship Specialty Start Date End Date Jim Jimenez [address] [place] [address] [place] [address] PCP - General Internal Medicine 04/29/19 documented as of this encounter
--- OUTSIDE RECORDS SUMMARY | 2025-05-20 16:52 | XMS_ITS | Clinical Summary ---
Author Organization [facility] Address [address] [place] [address] Care Team Providers Care Utility Worker [place] Name Role Phone Jim Jimenez Primary Care Provider Allergies Active Allergy Reactions Criticality Noted Date Comments Codeine Phosphate Vomiting 01/09/2024 Jatpfos-Fsuoytyzkk-Zne-Caff Nausea,Vomiting 12/2020 Shellfish Derived Hives 07/02/2019 Medications [...] y and up) 05/12/2022 Covid-19, Pfizer, mRNA, [place] valent, PF 30 mcg/0.3 mL dose (for ages 12 and older) 03/26/2021,08/24/2020,08/03/2020 Covid-19, Pfizer, mRNA, [place]gett valent, PF, 30 mcg/0.3 mL dose, adam-sucrose [...] EST Office Visit [facility] Building Neurology Clinic [address] [place] [address] Jacquie Dalton MD [address] [place] [address] Internal Medicine [place], [place] [phone] Health Maintenance Due Date Last Done Comments [...] complete this topic Procedures * Due to [place] state law, this organization might not be sharing negative HIV tests. Procedure Name Priority Date/Time Associated Diagnosis Comments COMPREHENSIVE METABOLIC PANEL Routine 04/14/2020 5:46 PM EDT PD (Parkinson's disease) from Last 3 Months or Most Recently Relevant to Health Maintenance Results * Due to [place] [employer] law, this organization might not be sharing negative HIV tests. * (ABNORMAL) Comprehensive Metabolic Panel (04/14/2020 5:46 PM EDT) NA 141 135 - 145 mmol/L 04/14/2020 6:34 PM [facility] K 4.9 3.5 - 5.3 mmol/L 04/14/2020 6:34 PM [facility] Cl 103 97 - 110 mmol/L 04/14/2020 6:34 PM [facility] CO2 30 24 - 32 mmol/L 04/14/2020 6:34 PM [facility] Anion Gap 8 5 - 15 04/14/2020 6:34 PM [facility] Glucose 97 70 - 99 mg/dL 04/14/2020 6:34 PM [facility] Creatinine 0.77 0.50 - 1.20 mg/dL 04/14/2020 6:34 PM [facility] eGFR Non- 82(L) >=90 mL/min/BSA 04/14/2020 6:34 PM [facility] eGFR >90 >=90 mL/min/BSA 04/14/2020 6:34 PM [facility] Comment: Units = mL/min/1.73 m2 Glomerular Filtration Rate (GFR) is estimated based on the CKD-EPI Creatinine Equation (2009). Stage Description GFR 1 Normal >=90 mL/min/BSA 2 Mildly decreased GFR 60-89 mL/min/BSA 3 Moderately decreased GFR 30-59 mL/min/BSA 4 Severely decreased GFR 15-29 mL/min/BSA 5 Kidney Failure <15 mL/min/BSA Calcium 10.0 8.7 - 10.7 mg/dL 04/14/2020 6:34 PM [facility] Total Protein 7.5 6.0 - 8.0 g/dL 04/14/2020 6:34 PM [facility] Albumin 4.7 3.5 - 4.8 g/dL 04/14/2020 6:34 PM [facility] Bilirubin, Total 0.3 0.3 - 1.2 mg/dL 04/14/2020 6:34 PM [facility] Alkaline Phosphatase 59 30 - 115 U/L 04/14/2020 6:34 PM EDT [facility] AST 19 10 - 40 U/L 04/14/2020 6:34 PM EDT [facility] ALT 10 10 - 40 U/L 04/14/2020 6:34 PM EDT [facility] BUN 20 7 - 23 mg/dL 04/14/2020 6:34 PM EDT [facility] Blood Structure of peripheral vein / Unknown Venipuncture / Unknown 04/14/2020 5:46 PM EDT 04/14/2020 6:06 PM EDT Amrit Allred MD PhD LAB BLOOD ORDERABLES Fin al Result [facility] [address] [place] [address], from Last 3 Months or Most Recently Relevant to Health Maintenance Insurance MEDICARE [facility] [place] [id number] Care Teams Utility Worker [employer] Relationship Specialty Start Date End Date Jim Jimenez [address] [place] [address] [place] [address] PCP - General Internal Medicine 04/29/19
--- OUTSIDE RECORDS SUMMARY | 2025-05-20 16:52 | XMS_ITS | Encounter Summary ---
Author Organization [facility] Address [address] [place] [address] Care Team Providers Care Web Ui Designer Name Role Phone Jim Jimenez Primary Care Provider [phone] Encounter Details Date Type Department Care Team (Late st Contact Info) Description 11/09/2020 Orders Only [facility] Interventional Radiology [address] [place] [address] Jaleesa Nguyen MD [address] [place] [address] Social History Tobacco Use Types Packs/Day Years [...] Description 08/05/2025 2:45 PM EST Office Visit [facility] Building Neurology Clinic [address] [place] [address] Jacquie Dalton MD [address] [place] [address] [place] [address] documented as of this encounter Visit Diagnoses Not on filedocumented in this encounter Care Teams Web Ui Designer Relationship Specialty Start Date End Date Jim Jimenez [address] [place] [address] [place] [address] PCP - General Internal Medicine 04/29/19 documented as of this encounter
--- OUTSIDE RECORDS SUMMARY | 2025-05-20 16:52 | XMS_ITS | Encounter Summary ---
Author Organization [facility] Address [address] [place] [address] Care Team Providers Care Oil Pump Station Operator Chief Name Role Phone Jim Jimenez Primary Care Provider [phone] Encounter Details Date Type Department Care Team (Late st Contact Info) Description 08/03/2022 myChart Message [facility] [address] [place] [address] Marce Gray MD [address] [place] [address] [place] [address] Clinical trials Social History Tobacco Use Types [...] Description 08/05/2025 2:45 PM EST Office Visit [facility] [address] [place] [address] Jacquie Dalton MD [address] [place] [address] Internal Medicine [place], [place] [phone] documented as of this encounter Visit Diagnoses Not on filedocumented in this encounter Care Teams Oil Pump Station Operator Chief Relationship Specialty Start Date End Date Jim Jimenez [address] [place] [address] [place] [address] PCP - General Internal Medicine 04/29/19 documented as of this encounter
--- OUTSIDE RECORDS SUMMARY | 2025-05-20 16:52 | XMS_ITS | Encounter Summary ---
Author Organization [facility] Address [address] [place] [address] Care Team Providers Care Briquette Operator Name Role Phone Jim Jimenez Primary Care Provider [phone] Encounter Details Date Type Department Care Team (Late st Contact Info) Description 04/20/2020 myChart Message [facility] [address] [place] [address] Marce Gray MD [address] [place] [address] [place] [address] RE: Non-Urgent Medical Question Social History Tobacco [...] Description 08/05/2025 2:45 PM EST Office Visit [facility] [address] [place] [address] Jacquie Dalton MD [address] [place] [address] Internal Medicine [place], [place] [phone] documented as of this encounter Visit Diagnoses Not on filedocumented in this encounter Care Teams Briquette Operator Relationship Specialty Start Date End Date Jim Jimenez [address] [place] [address] [place] [address] PCP - General Internal Medicine 04/29/19 documented as of this encounter
--- OUTSIDE RECORDS SUMMARY | 2025-05-20 16:52 | XMS_ITS | Encounter Summary ---
Author Organization [facility] Address [address] [place] [address] Care Team Providers Care Color Repairer Name Role Phone Jim Jimenez Primary Care Provider [phone] Encounter Details Date Type Department Care Team (Late st Contact Info) Description 05/10/2022 myChart Message [facility] [address] [place] [address] Marce Gray MD [address] [place] [address] [place] [address] Follow up to med change Social History [...] 08/05/2025 2:45 PM EST Office Visit [facility] [address] [place] [address] [phone] Jacquie Dalton MD [address] [place] [address] Internal Medicine [place], [place] [phone] documented as of this encounter Visit Diagnoses Not on filedocumented in this encounter Care Teams Color Repairer Relationship Specialty Start Date End Date Jim Jimenez [address] [place] [address] [place] [address] PCP - General Internal Medicine 04/29/19 documented as of this encounter
--- OUTSIDE RECORDS SUMMARY | 2025-05-20 16:52 | XMS_ITS | Encounter Summary ---
Author Organization [facility] Address [address] [place] [address] Care Team Providers Care Grain Mill Products Inspector Name Role Phone Jim Jimenez Primary Care Provider [phone] Encounter Details Date Type Department Care Team (Late st Contact Info) Description 04/25/2020 Orders Only [facility] Interventional Radiology [address] [place] [address] Jaleesa Nguyen MD [address] [place] [address] Social History Tobacco Use Types Packs/Day Years [...] Description 08/05/2025 2:45 PM EST Office Visit [facility] Clinic [address] [place] [address] Jacquie Dalton MD [address] [place] [address] Internal Medicine [place], [place] [phone] documented as of this encounter Visit Diagnoses Not on filedocumented in this encounter Care Teams Grain Mill Products Inspector Relationship Specialty Start Date End Date Jim Jimenez [address] [place] [address] [place] [address] PCP - General Internal Medicine 04/29/19 documented as of this encounter
== END 2025-05-20 13:11 | disposition home or self-care (01) ==
LOC: HO.MAMMO 13:10
PROVIDERS: PCP Physician Assistant; Visit Provider Physician Assistant
DX: Z13.820 Encounter for screening for osteoporosis (principal); Z78.0 Asymptomatic menopausal state
CPT/HCPCS: 77080

== ENCOUNTER → 2025-05-20 13:13 | Outpatient (BNV) | payer MEDICARE, OTHER, SELFPAY | PROVIDERS: PCP Physician Assistant; Visit Provider Radiology Diagnostic Radiology | DX: E28.39 Other primary ovarian failure (principal) | CPT/HCPCS: 77080 ==

== ENCOUNTER → 2025-06-01 07:43 | Outpatient (REF) | payer MEDICARE, OTHER, SELFPAY ==
--- NOTE | 2025-06-01 07:45 | CA_ITS ---
Transthoracic Echocardiogram Patient (Last, First, Middle): Wanda Cantrell M Gender: F Date of : 1955 Age: 69 Procedure Date: 06/01/2025 Procedure Type: Transthoracic Echocardiogram Location: OP Height: 152.4 cm Weight: 68.49 kg BSA: 1.66 m2 Heart Rate: bpm BP: 118 / 70 mmHg Slicer Machine Operator: ROBINSON Referring MD: Vinita KINSEY Symptoms: R06.02 - Shortness of breath Study Quality: Adequate ECG Rhythm: Sinus Conclusions: - The left ventricular systolic function is normal. The calculated ejection fraction is 66% by biplane method. - Trace to mild aortic regurgitation. Findings Left Ventricle Normal left ventricular cavity size. There is normal left ventricular wall thickness. The left ventricular systolic function is normal. The calculated ejection fraction is 66% by biplane method. There is no evidence of regional wall motion abnormalities. Evidence suggests grade I (mild) diastolic dysfunction. Right Ventricle Normal right ventricular cavity size and systolic function. Atria Both atria are normal in size. Aortic Valve There is a normal trileaflet aortic valve. There is no aortic valve stenosis. Trace to mild aortic regurgitation. Mitral Valve The mitral valve appears normal. There is trace mitral valve regurgitation. There is no mitral valve stenosis. Pulmonic Valve There is trace to mild pulmonic valve regurgitation. Tricuspid Valve There is no tricuspid valve regurgitation. Tricuspid regurgitation envelope is inadequate for calculation of right ventricular systolic pressure. Great Vessels The asc aorta is normal in size. Venous The inferior vena cava is normal in size and collapses greater than 50% with inspiration. Pericardium/Pleural There is no evidence of pericardial effusion. Prior Study Comparison No prior study available for comparison. Recommendations, Care & Conclusions No obvious valvular pathology seen on this study. Measurements 2D Linear Measurements IVSd: 0.96 0.6-0.9/0.6-1.0 cm LVIDd: 3.07 3.9-5.3/4.2-5.9 cm LVIDd Index: 1.85 2.4-3.2/2.2-3.1 cm/m2 LVIDs: 1.93 2.0-3.6 cm LVPWd: 0.90 0.7-1.1 cm LA Diam: 1.90 2.7-3.8/3.0-4.0 cm LAIDs Index: 1.14 1.5-2.3 cm/m2 LV Mass: 94.60 67-162/88-224 g LV Mass Index: 56.99 43-95/49-115 g/m2 LVOT Diam: 1.90 3.0+(-)1.3 cm 2D Systolic Function EF 4C: 66.40 >55% EF 2C: 64.10 >55% EF BiP: 65.50 >55% Mitral Valve MV Pk E: 0.75 MV PK A: 1.05 MV Decel Time: 210.00 E/A: 0.70 E'Lateral: 5.87 E'Medial: 4.46 E/E' Med: 16.70 E/E' Lat: 12.70 PHT: 62.00 MVA PHT: 3.55 Decel Mason: 3.55 Aortic Valve AoV Pk Gomez: 1.28 AoV Mn Gomez: 0.93 AoV VTI: 0.29 AoV Pk Grad: 7.00 Aov Mn Grad: 4.00 DELMI Cont.VTI: 2.12 LVOT LVOT Pk Gomez: 1.01 LVOT Mn Gomez: 0.68 LVOT VTI: 0.22 LVOT Pk Grad: 4.00 LVOT Mn Grad: 2.00 LVOT Diam: 1.90 LVOT Area: 2.84 Diastolic Function MV Pk E: 0.75 MV Pk A: 1.05 E/A: 0.70 E'Medial: 4.46 E/E' Med: 16.70 E' Laterial: 5.87 E/E' Lat: 12.70 Right Ventricle TAPSE (mm): 21.70 TVS' Gomez: 9.79 Tricuspid Valve RA Press: 3.00 Great Vessels Aorta Sinus of Valsalva: 3.26 2.0-3.[address] Ridge: 2.79 1.7-3.4 cm Ao Asc: 3.40 2.1-3.4 cm Updated in Other Vendor System with Status of Final Yusuf Mercedes MD electronically signed on 06/01/2025 1:04:58 PM with status of Final
--- OUTSIDE RECORDS SUMMARY | 2025-06-01 07:45 | XMS_ITS | Clinical Summary ---
Author Organization [facility] Address [address] [facility] [address] [address] Phone Care Team Providers Care Landscape Contractor Name Role Phone Jim Jimenez MD Primary Care Provider [phone] Social History Tobacco Use Types Packs/Day Years [...] topic Medical Devices Not on file Insurance [employer] TOTAL CHOICE INDEMNITY [employer] TOTAL CHOICE INDEMNITY [employer] TOTAL CHOICE INDEMNITY [employer] TOTAL CHOICE INDEMNITY [employer] TOTAL CHOICE INDEMNITY [facility] TOTAL CHOICE INDEMNITY Care Teams Landscape Contractor Relationship Specialty Start Date End Date Jim Jimenez MD [address] [place] [address] [place] [address] PCP - General Internal Medicine 07/08/19 Additional Source Comments The information contained in this document represents components of the legal health record. It is not the complete legal health record.[facility]
--- OUTSIDE RECORDS SUMMARY | 2025-06-01 07:45 | XMS_ITS | Patient Health Record ---
Author Organization [facility] Address [address] [place] [address] Care Team Providers Care Sales Attendant Building Materials Name Role Phone Jim Jimenez MD Primary Care Provider Unavailab Halle Mistry Unavailable [phone] Allergies Allergen (clinical drug ingredient) Drug/Non Drug [...] Acquired cavus deformity of right foot (disorder) (3624094877915 102) Cavus deformity of right foot (Q66.71) Active confirmed Vital Signs Blood pressure diastolic 70 mm Hg 08/13/2024 Height 5ft in 08/13/2024 Blood pressure systolic 112 mm Hg 08/13/2024 Weight 160 lbs 08/13/2024 BMI 31.24 kg/m2 08/13/2024 Encounters Encounter Location Date Provider Diagnosis [address] [address] 06/10/2024 Halle Saucedo Peroneal tendinitis of left lower extremity M76.72 ; Localized edema R60.0 ; Parkinson's disease with fluctuating manifestations, unspecified whether dyskinesia present G20.A2 ; Pain in left foot M79.672 and Stress fracture of left foot with routine healing, subsequent encounter M84.375D [address] [address] 08/13/2024 Halle Saucedo Peroneal tendinitis of left lower extremity M76.72 ; Stress fracture of left foot with routine healing, subsequent encounter M84.375D ; Localized edema R60.0 ; Parkinson's disease with fluctuating manifestations, unspecified whether dyskinesia present G20.A2 and Pain in left foot M79.[address] [address] 06/10/2024 Halle Saucedo Assessments Encounter Date Diagnosis (ICD Code) Assessment Notes Treatment Notes Treatment Clinical Notes Section Notes 06/10/2024 Localized edema (ICD-10 - R60.0) 06/10/2024 Peroneal tendinitis of left lower extremity (ICD-10 - M76.72) 08/13/2024 Peroneal tendinitis of left lower extremity (ICD-10 - M76.72) 08/13/2024 Stress fracture of left foot with routine healing, subsequent encounter (ICD-10 - M84.375D) 06/10/2024 Parkinson's disease with fluctuating manifestations, unspecified whether dyskinesia present (ICD-10 - G20.A2) 08/13/2024 Localized edema (ICD-10 - R60.0) 06/10/2024 Pain in left foot (ICD-10 - M79.672) 08/13/2024 Parkinson's disease with fluctuating manifestations, unspecified whether dyskinesia present (ICD-10 - G20.A2) 08/13/2024 Pain in left foot (ICD-10 - M79.672) 06/10/2024 Stress fracture of left foot with routine healing, subsequent encounter (ICD-10 - M84.375D) Plan Of Treatment No Information Insurance Providers Payer Name Payer Address Payer Phone Subscriber Number Group Number Insured Name Patient Relationship to Insured Coverage Start Date Coverage End Date [employer] ([facility] [address] [place] [id number] Wanda Handy Self - patient is the insured Medical (General) History Medical History History ICD Code Arthritis High Blood Pressure Parkinsons disease Psoriasis/eczema thyroid Measles Mumps Chicken pox Surgical History Surgery Date(Month/Year) thyroidectomy 2011 Gastropexy 2021
--- OUTSIDE RECORDS SUMMARY | 2025-06-01 07:45 | XMS_ITS | Encounter Summary ---
Author Organization [facility] Address [address] [place] [address] Care Team Providers Care Fire Investigator Name Role Phone Jim Jimenez Primary Care Provider [phone] Encounter Details Date Type Department Care Team (Late st Contact Info) Description 04/20/2020 myChart Message [facility] [address] [place] [address] Marce Gray MD [address] [place] [address] [place] [address] RE: Non-Urgent Medical Question Social History Tobacco [...] Description 08/05/2025 2:45 PM EST Office Visit [facility] [address] [place] [address] Jacquie Dalton MD [address] [place] [address] Internal Medicine [place], [place] [phone] documented as of this encounter Visit Diagnoses Not on filedocumented in this encounter Care Teams Fire Investigator Relationship Specialty Start Date End Date Jim Jimenez [address] [place] [address] [place] [address] PCP - General Internal Medicine 04/29/19 documented as of this encounter
--- OUTSIDE RECORDS SUMMARY | 2025-06-01 07:45 | XMS_ITS | Encounter Summary ---
Author Organization [facility] Address [address] [place] [address] Care Team Providers Care Inspector Optical Instrument Name Role Phone Jim Jimenez Primary Care Provider [phone] Encounter Details Date Type Department Care Team (Late st Contact Info) Description 11/09/2020 myChart Message [facility] [address] [place] [address] [phone] Marce Gray MD [address] [place] [address] RE: MRI Social History Tobacco Use Types [...] Description 08/05/2025 2:45 PM EST Office Visit [facility] [address] [place] [address] [phone] Jacquie Dalton MD [address] [place] [address] Internal Medicine [place], [place] [phone] documented as of this encounter Visit Diagnoses Not on filedocumented in this encounter Care Teams Inspector Optical Instrument Relationship Specialty Start Date End Date Jim Jimenez [address] [place] [address] [place] [address] PCP - General Internal Medicine 04/29/19 documented as of this encounter
--- OUTSIDE RECORDS SUMMARY | 2025-06-01 07:45 | XMS_ITS | Encounter Summary ---
Author Organization [facility] Address [address] [place] [address] Care Team Providers Care Cognos Bi Developer Name Role Phone Jim Jimenez Primary Care Provider [phone] Encounter Details Date Type Department Care Team (Late st Contact Info) Description 04/27/2022 myChart Message [facility] [address] [place] [address] Marce Gray MD [address] [place] [address] [place] [address] Off periods Social History Tobacco Use Types [...] Description 08/05/2025 2:45 PM EST Office Visit [facility] [address] [place] [address] Jacquie Dalton MD [address] [place] [address] Internal Medicine [place], [place] [phone] documented as of this encounter Visit Diagnoses Not on filedocumented in this encounter Care Teams Cognos Bi Developer Relationship Specialty Start Date End Date Jim Jimenez [address] [place] [address] [place] [address] PCP - General Internal Medicine 04/29/19 documented as of this encounter
--- OUTSIDE RECORDS SUMMARY | 2025-06-01 07:45 | XMS_ITS | Patient Health Record ---
Author Organization [facility] Address [address] [place] [address] Care Team Providers Care Car Supervisor Name Role Phone Tony (RETIRED) Jim REDDY Primary Care Provider Unavailable Zia Dowd Unavailable [phone] Allergies Allergen (clinical drug ingredient) Drug/Non Drug [...] TAKE 1 CAPSULE BY MO UTH EVERY DAY; Duration: 90 Active Simvastatin Active Tylenol prn Active Immunizations Vaccine Route Administration Date Status Comme nts Influenza Unknown 07/07/2020 Administered Problems Problem Type SNOMED Code ICD Code Onset Dates Problem Status W/U Status Risk Notes Problem Screening for malignant neoplasm of colon (807010458) Encounter for screening for malignant neoplasm of colon (Z12.11) Active confirmed Problem History of adenomatous polyp of colon (273954215) History of adenomatous polyp of colon (Z86.010) Active confirmed Problem Preprocedural examination (218498850345654) Preprocedural examination (Z01.818) Active confirmed Problem Family History of Cancer of Colon (Situation) (748117291) Family history of colon cancer (Z80.0) Active confirmed Problem Gastroesophageal reflux disease (414951006) GERD (gastroesophageal reflux disease) (K21.9) Active confirmed Problem Computed tomography of abdomen abnormal (33665726048696951) Abnormal CT scan, stomach (R93.3) Active confirmed Problem Diaphragmatic hernia (16643616) 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) Active confirmed Plan Of Treatment Future Test Test Name Order Date UPPER GI ENDOSCOPY 11/04/2013 COLONOSCOPY 11/04/2013 COLONOSCOPY 07/07/2020 UPPER GI ENDOSCOPY 01/23/2022 Insurance Providers Payer Name Payer Address Payer Phone Subscriber Number Group Number Insured Name Patient Relationship to Insured Coverage Start Date Coverage End Date [employer] [address] [place] [address] [id number] KEVIN Albrecht NILES Self - patient is the insured Medicare of [place] [employer] [address] [place] [address] [id number] KEVIN Albrecht NILES Self - patient is the insured Medical (General) History Medical History History ICD Code Colonoscopy 08-31-2006--2 small tubular a denomas removed Hypertension Psoriatic arthritis Thyroid cancer--diagnosised in 2011--rig ht thyroidectomy GERD Denies HI,DM,CVA,Lung disease,renal dise ase Hyperlipidemia 12/2013 Upper endo--fairly la rge hiatal hernia with associated reflux esophagitis-biopsies were negative for Wei's esophagus 12/2013-colonoscopy--one smal l tubular adenoma removed and mild diverticulosis Parkinson's disease Hiatal hernia 553.3 Surgical History Surgery Date(Month/Year) Partial throidectomy Tonsillectomy
--- OUTSIDE RECORDS SUMMARY | 2025-06-01 07:45 | XMS_ITS | Encounter Summary ---
Author Organization [facility] Address [address] [place] [address] Care Team Providers Care Ordering Machine Operator Name Role Phone Jim Jimenez Primary Care Provider [phone] Encounter Details Date Type Department Care Team (Late st Contact Info) Description 05/10/2022 myChart Message [facility] [address] [place] [address] Marce Gray MD [address] [place] [address] [place] [address] Follow up to med change Social History [...] Description 08/05/2025 2:45 PM EST Office Visit [facility] [address] [place] [address] [phone] Jacquie Dalton MD [address] [place] [address] Internal Medicine [place], [place] [phone] documented as of this encounter Visit Diagnoses Not on filedocumented in this encounter Care Teams Ordering Machine Operator Relationship Specialty Start Date End Date Jim Jimenez [address] [place] [address] [place] [address] PCP - General Internal Medicine 04/29/19 documented as of this encounter
--- OUTSIDE RECORDS SUMMARY | 2025-06-01 07:45 | XMS_ITS | Encounter Summary ---
Author Organization [facility] Address [address] [place] [address] Care Team Providers Care Hand Mexican Food Maker Name Role Phone Jim Jimenez Primary Care Provider [phone] Encounter Details Date Type Department Care Team (Late st Contact Info) Description 05/20/2020 myChart Message [facility] [address] [place] [address] Marce Gray MD [address] [place] [address] [place] [address] RE: Test Results Question Social History Tobacco [...] Description 08/05/2025 2:45 PM EST Office Visit [facility] [address] [place] [address] [phone] Jacquie Dalton MD [address] [place] [address] Internal Medicine [place], [place] [phone] documented as of this encounter Visit Diagnoses Not on filedocumented in this encounter Care Teams Hand Mexican Food Maker Relationship Specialty Start Date End Date Jim Jimenez [address] [place] [address] [place] [address] PCP - General Internal Medicine 04/29/19 documented as of this encounter
--- OUTSIDE RECORDS SUMMARY | 2025-06-01 07:45 | XMS_ITS | Encounter Summary ---
Author Organization [facility] Address [address] [place] [address] Care Team Providers Care Relay Motorman Name Role Phone Jim Jimeenz Primary Care Provider [phone] Reason for Visit * Reason Onset Date Comments Study call with 06/13/2021 Encounter Details Date Type Department Care Team ([facility] st Contact Info) Description 06/13/2021 Telephone [facility] Central Scheduling Department [address] [place] [address] Neurology, Unv [address] [place] [address] Study call with Social History Tobacco Use [...] parkinson'sand would like for prov to call [phone] documented in this encounter Plan of Treatment Upcoming Encounters Date Type Department Care Team (Late st Contact Info) Description 08/05/2025 2:45 PM EST Office Visit [facility] Neurology Clinic [address] [place], [place] [phone] Jacquie Dalton MD [address] [place] [address] Internal [place], [place] [phone] documented as of this encounter Visit Diagnoses Not on filedocumented in this encounter Care Teams Relay Motorman Relationship Specialty Start Date End Date Jim Jimenez [address] [place] [address] [place] [address] PCP - General Internal Medicine 04/29/19 documented as of this encounter
--- OUTSIDE RECORDS SUMMARY | 2025-06-01 07:45 | XMS_ITS | Encounter Summary ---
Author Organization [facility] Address [address] [place] [address] Care Team Providers Care Health Unit Supervisor Name Role Phone Jim Jimenez Primary Care Provider [phone] Encounter Details Date Type Department Care Team (Late st Contact Info) Description 08/03/2022 myChart Message [facility] Neurology Clinic [address] [place] [address] Marce Gray MD [address] [place] [address] [place] [address] Clinical trials Social History Tobacco Use Types [...] 08/05/2025 2:45 PM EST Office Visit [facility] Neurology Clinic [address] [place] [address] Jacquie Dalton MD [address] [place] [address] Internal Medicine [place], [place] [phone] documented as of this encounter Visit Diagnoses Not on filedocumented in this encounter Care Teams Health Unit Supervisor Relationship Specialty Start Date End Date Jim Jimenez [address] [place] [address] [place] [address] PCP - General Internal Medicine 04/29/19 documented as of this encounter
--- OUTSIDE RECORDS SUMMARY | 2025-06-01 07:45 | XMS_ITS | Encounter Summary ---
Author Organization [facility] Address [address] [place] [address] Care Team Providers Care Hvac Services Professional Name Role Phone Jim Jimenez Primary Care Provider [phone] Encounter Details Date Type Department Care Team (Late st Contact Info) Description 11/09/2020 Orders Only [facility] Interventional Radiology [address] [place] [address] Jaleesa Nguyen MD [address] [place] [address] Social History Tobacco Use Types Packs/Day Years [...] 08/05/2025 2:45 PM EST Office Visit [facility] Neurology Clinic [address] [place] [address] Jacquie Dalton MD [address] [place] [address] [place] [address] documented as of this encounter Visit Diagnoses Not on filedocumented in this encounter Care Teams Hvac Services Professional Relationship Specialty Start Date End Date Jim Jimenez [address] [place] [address] [place] [address] PCP - General Internal Medicine 04/29/19 documented as of this encounter
--- OUTSIDE RECORDS SUMMARY | 2025-06-01 07:45 | XMS_ITS | Encounter Summary ---
Author Organization [facility] Address [address] [place] [address] Care Team Providers Care Factory Maintenance Technician Name Role Phone Jim Jimenez Primary Care Provider [phone] Encounter Details Date Type Department Care Team (Late st Contact Info) Description 01/01/2022 Workhint Message Intial Department [address] [place] [address] [employer]ation [employer], Generic Provider [address] [place], [place] [phone] Questionnaire Submission Social History Tobacco Use Types [...] Description 08/05/2025 2:45 PM EST Office Visit [facility] Neurology Clinic [address] [place] [address] Jacquie Dalton MD 55 [facility] [place] [address] documented as of this encounter Visit Diagnoses Not on filedocumented in this encounter Care Teams Factory Maintenance Technician Relationship Specialty Start Date End Date Jim Jimenez [address] [place] [address] [place] [address] PCP - General Internal Medicine 04/29/19 documented as of this encounter
--- OUTSIDE RECORDS SUMMARY | 2025-06-01 07:45 | XMS_ITS | Encounter Summary ---
Author Organization [facility] Address [address] [place] [address] Care Team Providers Care Property Claims Adjuster Name Role Phone Jim Jimenez Primary Care Provider [phone] Encounter Details Date Type Department Care Team (Late st Contact Info) Description 04/25/2020 Orders Only [facility] Interventional Radiology [address] [place] [address] Jaleesa Nguyen MD [address] [place] [address] Social History Tobacco Use Types Packs/Day Years [...] Description 08/05/2025 2:45 PM EST Office Visit [facility] Neurology Clinic [address] [place] [address] Jacquie Dalton MD [address] [place] [address] Internal Medicine [place], [place] [phone] documented as of this encounter Visit Diagnoses Not on filedocumented in this encounter Care Teams Property Claims Adjuster Relationship Specialty Start Date End Date Jim Jimenez [address] [place] [address] [place] [address] PCP - General Internal Medicine 04/29/19 documented as of this encounter
--- OUTSIDE RECORDS SUMMARY | 2025-06-01 07:45 | XMS_ITS | Clinical Summary ---
Author Organization [facility] Address [address] [place] [address] Care Team Providers Care Assembler Wire Group Name Role Phone Jim Jimenez Primary Care Provider Allergies Active Allergy Reactions Criticality Noted Date Comments Codeine Phosphate Vomiting 01/09/2024 Rmmnpki-Zpbsdktdor-Gbq-Caff Nausea,Vomiting 12/2020 Shellfish Derived Hives 07/02/2019 Medications [...] y and up) 05/12/2022 Covid-19, Pfizer, mRNA, Gregory valent, PF 30 mcg/0.3 mL dose (for ages 12 and older) 03/26/2021,08/24/2020,08/03/2020 Covid-19, Pfizer, mRNA, Gregory valent, PF, 30 mcg/0.3 mL dose, adam-sucrose [...] Description 08/05/2025 2:45 PM EST Office Visit [facility] Building Neurology Clinic [address] [place] [address] Jacquie Dalton MD [address] [place] [address] Internal Medicine [place], [place] [phone] Health Maintenance Due Date Last Done Comments [...] complete this topic Procedures * Due to [place] state law, this organization might not be sharing negative HIV tests. Procedure Name Priority Date/Time Associated Diagnosis Comments COMPREHENSIVE METABOLIC PANEL Routine 04/14/2020 5:46 PM EDT PD (Parkinson's disease) from Last 3 Months or Most Recently Relevant to Health Maintenance Results * Due to [place] [employer] law, this organization might not be sharing negative HIV tests. * (ABNORMAL) Comprehensive Metabolic Panel (04/14/2020 5:46 PM EDT) NA 141 135 - 145 mmol/L 04/14/2020 6:34 PM [facility] K 4.9 3.5 - 5.3 mmol/L 04/14/2020 6:34 PM [facility] Cl 103 97 - 110 mmol/L 04/14/2020 6:34 PM [facility] CO2 30 24 - 32 mmol/L 04/14/2020 6:34 PM [facility] Anion Gap 8 5 - 15 04/14/2020 6:34 PM [facility] Glucose 97 70 - 99 mg/dL 04/14/2020 6:34 PM [facility] Creatinine 0.77 0.50 - 1.20 mg/dL 04/14/2020 6:34 PM [facility] eGFR Non- 82(L) >=90 mL/min/BSA 04/14/2020 6:34 PM [facility] eGFR >90 >=90 mL/min/BSA 04/14/2020 6:34 PM [facility] Comment: Units = mL/min/1.73 m2 Glomerular Filtration Rate (GFR) is estimated based on the CKD-EPI Creatinine Equation (2009). Stage Description GFR 1 Normal >=90 mL/min/BSA 2 Mildly decreased GFR 60-89 mL/min/BSA 3 Moderately decreased GFR 30-59 mL/min/BSA 4 Severely decreased GFR 15-29 mL/min/BSA 5 Kidney Failure <15 mL/min/BSA Calcium 10.0 8.7 - 10.7 mg/dL 04/14/2020 6:34 PM [facility] Total Protein 7.5 6.0 - 8.0 g/dL 04/14/2020 6:34 PM [facility] Albumin 4.7 3.5 - 4.8 g/dL 04/14/2020 6:34 PM [facility] Bilirubin, Total 0.3 0.3 - 1.2 mg/dL 04/14/2020 6:34 PM [facility] Alkaline Phosphatase 59 30 - 115 U/L 04/14/2020 6:34 PM EDT [facility] AST 19 10 - 40 U/L 04/14/2020 6:34 PM EDT [facility] ALT 10 10 - 40 U/L 04/14/2020 6:34 PM EDT [facility] BUN 20 7 - 23 mg/dL 04/14/2020 6:34 PM EDT [facility] Blood Structure of peripheral vein / Unknown Venipuncture / Unknown 04/14/2020 5:46 PM EDT 04/14/2020 6:06 PM EDT Amrit Allred MD PhD LAB BLOOD ORDERABLES Fin al Result [facility] [address] [place] [address], from Last 3 Months or Most Recently Relevant to Health Maintenance Insurance MEDICARE [facility] [place] [id number] Care Teams Assembler Wire Group Relationship Specialty Start Date End Date Jim Jimenez [address] [place] [address] [place] [address] PCP - General Internal Medicine 04/29/19
== END ==
LOC: HO.CARD 07:43
PROVIDERS: PCP Physician Assistant Medical; Visit Provider Physician Assistant Medical
DX: R06.02 Shortness of breath (principal)
CPT/HCPCS: 93306

== ENCOUNTER → 2025-06-01 07:45 | Outpatient (BNV) | payer MEDICARE, OTHER, SELFPAY | PROVIDERS: PCP Physician Assistant Medical; Visit Provider Internal Medicine | DX: I35.1 Nonrheumatic aortic (valve) insufficiency (principal); I37.1 Nonrheumatic pulmonary valve insufficiency | CPT/HCPCS: 93306 ==

== ENCOUNTER 2025-06-08 07:29 | Outpatient (REF) | payer OTHER, MEDICARE, SELFPAY ==
--- OUTSIDE RECORDS SUMMARY | 2025-06-08 07:31 | XMS_ITS | Encounter Summary ---
Author Organization [facility] Address [address] [place] [address] Care Team Providers Care Fur Dry Cleaner Name Role Phone Jim Jimenez Primary Care Provider [phone] Encounter Details Date Type Department Care Team (Late st Contact Info) Description 08/03/2022 myChart Message [facility] Neurology Clinic [address] [place] [address] Marce Gray MD [address] [place] [address] [place] [address] Clinical trials Social History Tobacco Use Types [...] Description 08/05/2025 2:45 PM EST Office Visit [facility] Neurology Clinic [address] [place] [address] Jacquie Dalton MD [address] [place] [address] Internal Medicine [place], [place] [phone] documented as of this encounter Visit Diagnoses Not on filedocumented in this encounter Care Teams Fur Dry Cleaner Relationship Specialty Start Date End Date Jim Jimenez [address] [place] [address] [place] [address] PCP - General Internal Medicine 04/29/19 documented as of this encounter
--- OUTSIDE RECORDS SUMMARY | 2025-06-08 07:31 | XMS_ITS | Clinical Summary ---
Author Organization [facility] Address [address] [address] Phone Care Team Providers Care Diver Tender Name Role Phone Jim Jimenez MD Primary Care Provider [phone] Social History Tobacco Use Types Packs/Day Years [...] topic Medical Devices Not on file Insurance [employer] TOTAL CHOICE INDEMNITY [employer] TOTAL CHOICE INDEMNITY [employer] TOTAL CHOICE INDEMNITY [employer] TOTAL CHOICE INDEMNITY [employer] TOTAL CHOICE INDEMNITY [facility] TOTAL CHOICE INDEMNITY Care Teams Diver Tender Relationship Specialty Start Date End Date Jim Jimenez MD [address] [place] [address] [place] [address] PCP - General Internal Medicine 07/08/19 Additional Source Comments The information contained in this document represents components of the legal health record. It is not the complete legal health record.[facility]
--- OUTSIDE RECORDS SUMMARY | 2025-06-08 07:31 | XMS_ITS | Encounter Summary ---
Author Organization [facility] Address [address] [place] [address] Care Team Providers Care Rfid Engineer Name Role Phone Jim Jimenez Primary Care Provider Encounter Details Date Type Department Care Team (Late st Contact Info) Description 01/01/2022 Healthagen Message Intial Department [address] [place] [address] [employer], Generic Provider [address] [place], [place] [phone] Questionnaire Submission Social History Tobacco Use Types [...] Description 08/05/2025 2:45 PM EST Office Visit [facility] Neurology Clinic [address] [place] [address] Jacquie Dalton MD 55 [facility] [place] [address] documented as of this encounter Visit Diagnoses Not on filedocumented in this encounter Care Teams Rfid Engineer Relationship Specialty Start Date End Date Jim Jimenez [address] [place] [address] [place] [address] PCP - General Internal Medicine 04/29/19 documented as of this encounter
--- OUTSIDE RECORDS SUMMARY | 2025-06-08 07:31 | XMS_ITS | Encounter Summary ---
Author Organization [facility] Address [address] [place] [address] Care Team Providers Care Jointer Machine Operator Name Role Phone Jim Jimenez Primary Care Provider [phone] Encounter Details Date Type Department Care Team (Late st Contact Info) Description 05/10/2022 myChart Message [facility] Neurology Clinic [address] [place] [address] Marce Gray MD [address] [place] [address] [place] [address] Follow up to med change Social History [...] Description 08/05/2025 2:45 PM EST Office Visit [facility] Neurology Clinic [address] [place] [address] [phone] Jacquie Dalton MD [address] [place] [address] Internal Medicine [place], [place] [phone] documented as of this encounter Visit Diagnoses Not on filedocumented in this encounter Care Teams Jointer Machine Operator Relationship Specialty Start Date End Date Jim Jimenez [address] [place] [address] [place] [address] PCP - General Internal Medicine 04/29/19 documented as of this encounter
--- OUTSIDE RECORDS SUMMARY | 2025-06-08 07:31 | XMS_ITS | Encounter Summary ---
Author Organization [facility] Address [address] [place] [address] Care Team Providers Care Agriculture Engineer Name Role Phone JimenezJim Primary Care Provider [phone] Reason for Visit * Reason Comments Med Refill Encounter Details Date Type Department Care Team (Late st Contact Info) Description 06/04/2025 Refill [facility] Neurology Clinic [address] [place] [address] Elif Benz MD [address] [place] [address] [place] [address] Social History Tobacco Use Types Packs/Day Years [...] Visit [facility] Neurology Clinic [address] [place] [address] Jacquie Dalton MD [address] [place] [address] [place] [address] documented as of this encounter Visit Diagnoses Not on filedocumented in this encounter Care Teams Agriculture Engineer Relationship Specialty Start Date End Date Jim Jimenez [address] [place] [address] [place] [address] PCP - General Internal Medicine 04/29/19 documented as of this encounter
--- OUTSIDE RECORDS SUMMARY | 2025-06-08 07:31 | XMS_ITS | Encounter Summary ---
Author Organization [facility] Address [address] [place] [address] Care Team Providers Care Refuge Manager Name Role Phone Jim Jimenez Primary Care Provider [phone] Reason for Visit * Reason Onset Date Comments Study call with 06/13/2021 Encounter Details Date Type Department Care Team ([facility] st Contact Info) Description 06/13/2021 Telephone [facility] Central Scheduling Department [address] [place] [address] Neurology, Unv [address] [place] [address] Study call with Social History Tobacco Use [...] parkinson'sand would like for prov to call [phone] documented in this encounter Plan of Treatment Upcoming Encounters Date Type Department Care Team (Late st Contact Info) Description 08/05/2025 2:45 PM EST Office Visit [facility] Neurology Clinic [address] [place], [place] [phone] Jacquie Dalton MD [address] [place] [address] Internal [place], [place] [phone] documented as of this encounter Visit Diagnoses Not on filedocumented in this encounter Care Teams Refuge Manager Relationship Specialty Start Date End Date Jim Jimenez [address] [place] [address] [place] [address] PCP - General Internal Medicine 04/29/19 documented as of this encounter
--- OUTSIDE RECORDS SUMMARY | 2025-06-08 07:31 | XMS_ITS | Encounter Summary ---
Author Organization [facility] Address [address] [place] [address] Care Team Providers Care Environmental Health Specialist Name Role Phone Jim Jimenez Primary Care Provider [phone] Encounter Details Date Type Department Care Team (Late st Contact Info) Description 04/27/2022 myChart Message [facility] Neurology Clinic [address] [place] [address] Marce Gray MD [address] [place] [address] [place] [address] Off periods Social History Tobacco Use Types [...] Description 08/05/2025 2:45 PM EST Office Visit [facility] Neurology Clinic [address] [place] [address] Jacquie Dalton MD [address] [place] [address] Internal Medicine [place], [place] [phone] documented as of this encounter Visit Diagnoses Not on filedocumented in this encounter Care Teams Environmental Health Specialist Relationship Specialty Start Date End Date Jim Jimenez [address] [place] [address] [place] [address] PCP - General Internal Medicine 04/29/19 documented as of this encounter
--- OUTSIDE RECORDS SUMMARY | 2025-06-08 07:32 | XMS_ITS | Encounter Summary ---
Author Organization [facility] Address [address] [place] [address] Care Team Providers Care Hot Wort Settler Name Role Phone Jim Jimenez Primary Care Provider [phone] Encounter Details Date Type Department Care Team (Late st Contact Info) Description 11/09/2020 myChart Message [facility] Neurology Clinic [address] [place] [address] [phone] Marce Gray MD [address] [place] [address] RE: MRI Social History Tobacco Use Types [...] Description 08/05/2025 2:45 PM EST Office Visit [facility] Neurology Clinic [address] [place] [address] [phone] Jacquie Dalton MD [address] [place] [address] Internal Medicine [place], [place] [phone] documented as of this encounter Visit Diagnoses Not on filedocumented in this encounter Care Teams Hot Wort Settler Relationship Specialty Start Date End Date Jim Jimenez [address] [place] [address] [place] [address] PCP - General Internal Medicine 04/29/19 documented as of this encounter
--- OUTSIDE RECORDS SUMMARY | 2025-06-08 07:32 | XMS_ITS | Encounter Summary ---
Author Organization [facility] Address [address] [place] [address] Care Team Providers Care Job Site Supervisor Name Role Phone Jim Jimenez Primary Care Provider [phone] Encounter Details Date Type Department Care Team (Late st Contact Info) Description 11/09/2020 Orders Only [facility] Interventional Radiology [address] [place] [address] Jaleesa Nguyen MD [address] [place] [address] Social History Tobacco Use Types Packs/Day Years [...] PM EST Office Visit [facility] Building Neurology Clinic [address] [place] [address] Jacquie Dalton MD [address] [place] [address] [place] [address] documented as of this encounter Visit Diagnoses Not on filedocumented in this encounter Care Teams Job Site Supervisor Relationship Specialty Start Date End Date Jim Jimenez [address] [place] [address] [place] [address] PCP - General Internal Medicine 04/29/19 documented as of this encounter
--- OUTSIDE RECORDS SUMMARY | 2025-06-08 07:32 | XMS_ITS | Encounter Summary ---
Author Organization [facility] Address [address] [place] [address] Care Team Providers Care Computer System Specialist Name Role Phone Jim Jimenez Primary Care Provider Encounter Details Date Type Department Care Team (Late st Contact Info) Description 04/25/2020 Orders Only [facility] Interventional Radiology [address] [place] [address] Jaleesa Nguyen MD [address] [place] [address] Social History Tobacco Use Types Packs/Day Years [...] Description 08/05/2025 2:45 PM EST Office Visit [facility] Neurology Clinic [address] [place] [address] Jacquie Dalton MD [address] [place] [address] Internal Medicine [place], [place] [phone] documented as of this encounter Visit Diagnoses Not on filedocumented in this encounter Care Teams Computer System Specialist Relationship Specialty Start Date End Date Jim Jimenez [address] [place] [address] [place] [address] PCP - General Internal Medicine 04/29/19 documented as of this encounter
--- OUTSIDE RECORDS SUMMARY | 2025-06-08 07:32 | XMS_ITS | Patient Health Record ---
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) Active confirmed Vital Signs Blood pressure diastolic 70 mm Hg 08/13/2024 Height 5ft in 08/13/2024 Blood pressure systolic 112 mm Hg 08/13/2024 Weight 160 lbs 08/13/2024 BMI 31.24 kg/m2 08/13/2024 Encounters Encounter Location Date Provider Diagnosis [address] [address] 06/10/2024 Halle Saucedo Peroneal tendinitis of left lower extremity M76.72 ; Localized edema R60.0 ; Parkinson's disease with fluctuating manifestations, unspecified whether dyskinesia present G20.A2 ; Pain in left foot M79.672 and Stress fracture of left foot with routine healing, subsequent encounter M84.375D [address] [address] 08/13/2024 Halle Saucedo Peroneal tendinitis of left lower extremity M76.72 ; Stress fracture of left foot with routine healing, subsequent encounter M84.375D ; Localized edema R60.0 ; Parkinson's disease with fluctuating manifestations, unspecified whether dyskinesia present G20.A2 and Pain in left foot M79.[address] [address] 06/10/2024 Halle Saucedo Assessments Encounter Date Diagnosis [...] Coverage Start Date Coverage End Date [employer] ([facility]) [address] [place] [id number] Wanda Handy Self - patient is the insured Medical (General) History Medical History History ICD Code Arthritis High Blood Pressure Parkinsons disease Psoriasis/eczema thyroid Measles Mumps Chicken pox Surgical History Surgery Date(Month/Year) thyroidectomy 2011 Gastropexy 2021
--- OUTSIDE RECORDS SUMMARY | 2025-06-08 07:32 | XMS_ITS | Patient Health Record ---
Author Organization [facility] Address [address] [place] [address] Care Team Providers Care Burner Operator Name Role Phone Tony (RETIRED) Jim REDDY Primary Care Provider Unavailable Zia Dowd Unavailable [phone] Allergies Allergen (clinical drug ingredient) Drug/Non Drug [...] Problem Screening for malignant neoplasm of colon (501001962) Encounter for screening for malignant neoplasm of colon (Z12.11) Active confirmed Problem History of adenomatous polyp of colon (996728142) History of adenomatous polyp of colon (Z86.010) Active confirmed Problem Preprocedural examination (299395000443018) Preprocedural examination (Z01.818) Active confirmed Problem Family History of Cancer of Colon (Situation) (019943011) Family history of colon cancer (Z80.0) Active confirmed Problem Gastroesophageal reflux disease (041089316) GERD (gastroesophageal reflux disease) (K21.9) Active confirmed Problem Computed tomography of abdomen abnormal (64963446012125806) Abnormal CT scan, stomach (R93.3) Active confirmed Problem Diaphragmatic hernia (85250337) 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) Active confirmed Plan Of Treatment Future Test Test Name Order Date UPPER GI ENDOSCOPY 11/04/2013 COLONOSCOPY 11/04/2013 COLONOSCOPY 07/07/2020 UPPER GI ENDOSCOPY 01/23/2022 Insurance Providers Payer Name Payer Address Payer Phone Subscriber Number Group Number Insured Name Patient Relationship to Insured Coverage Start Date Coverage End Date [employer] [address] [place] [address] [id number] KEVIN Albrecht NILES Self - patient is the insured Medicare of [place] [employer] [address] [place] [address] [id number] KEVIN Albrecht NILES Self - patient is the insured Medical (General) History Medical History History ICD Code Colonoscopy 08-31-2006--2 small tubular a denomas removed Hypertension Psoriatic arthritis Thyroid cancer--diagnosised in 2011--rig ht thyroidectomy GERD Denies DE,DM,CVA,Lung disease,renal dise ase Hyperlipidemia 12/2013 Upper endo--fairly la rge hiatal hernia with associated reflux esophagitis-biopsies were negative for Wei's esophagus 12/2013-colonoscopy--one smal l tubular adenoma removed and mild diverticulosis Parkinson's disease Hiatal hernia 553.3 Surgical History Surgery Date(Month/Year) Partial throidectomy Tonsillectomy
--- OUTSIDE RECORDS SUMMARY | 2025-06-08 07:32 | XMS_ITS | Clinical Summary ---
Author Organization [facility] Address [address] [place] [address] Care Team Providers Care Customer Strategy Manager Name Role Phone Jim Jimenez Primary Care Provider [phone] Allergies Active Allergy Reactions Criticality Noted Date Comments Codeine Phosphate Vomiting 01/09/2024 Cxyeuly-Scjplgudzz-Tlw-Caff Nausea,Vomiting 12/2020 Shellfish Derived Hives 07/02/2019 Medications levothyroxine (SYNTHROID, LEVOTHROID) 75 mcg tablet 06/18/2019 Active simvastatin (ZOCOR) 40 mg tablet Take 80 mg by mouth at bed time. 06/18/2019 Active ubidecarenone (coenzyme Q10) 100 mg tablet Take 200 mg by mouth once a day. Active metoprolol succinate XL (TOPROL XL) 50 mg tablet SMARTSI Tablet(s) By Mouth Every Night 04/25/2023 Active omeprazole (PriLOSEC) 20 mg capsule Take 20 mg by mouth as needed. 12/28/2024 Active melatonin 3 mg tablet Take 3 mg by mouth nightly as needed for sleep. Active carbidopa-levod opa (SINEMET) 25-100 mg tablet Take 1 tablet by mouth in the morning. 30 tablet 11 01/07/2025 Active carbidopa-levod opa ER/CR (SINEMET ER/CR) 50-200 mg tablet TAKE 1 TABLET BY MOUTH 5 TIMES A DAY 450 tablet 3 06/04/2025 Active Active Problems Problem Noted Date Diagnosed Date Dystonia 06/13/2023 Idiopathic Parkinson's disease 07/02/2019 Encounters Date Type Department Care Team Description 06/04/2025 Refill [facility] [address] [place] [address] Elif Benz MD from Last 3 Months Immunizations Immunization Administration Dates Next Due COVID-19, Pfizer, mRNA, Biva lent Booster, PF, 30 mcg/0.3 mL dose (for age 12 y and up) 05/12/2022 Covid-19, Pfizer, mRNA, [place] valent, PF 30 mcg/0.3 mL dose (for ages 12 and older) 03/26/2021,08/24/2020,08/03/2020 Covid-19, Pfizer, mRNA, [place] valent, PF, 30 mcg/0.3 mL dose, adam-sucrose [...] Description 08/05/2025 2:45 PM EST Office Visit [facility] [address] [place] [address] [phone] Jacquie Dalton MD [address] [place] [address] [place] [address] Health Maintenance Due Date Last [...] Additional history exists Influenza Vaccine (#1) 2025 4, 05/17/2023, 05/12/2022, Additional history exists RSV Vaccine (60+ years old and patients) (1 - 1-dose 75+ series) 2031 Hepatitis B Vaccines Aged Out No long er eligible based on patient's age to complete this topic Procedures * Due to [place] state law, this organization might not be sharing negative HIV tests. Procedure Name Priority Date/Time Associated Diagnosis Comments COMPREHENSIVE METABOLIC PANEL Routine 04/14/2020 5:46 PM EDT PD (Parkinson's disease) from Last 3 Months or Most Recently Relevant to Health Maintenance Results * Due to [place] state law, this organization might not be sharing negative HIV tests. * (ABNORMAL) Comprehensive Metabolic Panel (04/14/2020 5:46 PM EDT) NA 141 135 - 145 mmol/L 04/14/2020 6:34 PM EDT [facility] K 4.9 3.5 - 5.3 mmol/L 04/14/2020 6:34 PM EDT [facility] Cl 103 97 - 110 mmol/L 04/14/2020 6:34 PM EDT [facility] CO2 30 24 - 32 mmol/L 04/14/2020 6:34 PM EDT [facility] Anion Gap 8 5 - 15 04/14/2020 6:34 PM EDT [facility] Glucose 97 70 - 99 mg/dL 04/14/2020 6:34 PM EDT [facility] Creatinine 0.77 0.50 - 1.20 mg/dL 04/14/2020 6:34 PM EDT [facility] eGFR Non- 82(L) >=90 mL/min/BSA 04/14/2020 6:34 PM EDT [facility] eGFR >90 >=90 mL/min/BSA 04/14/2020 6:34 PM EDT [facility] Comment: Units = mL/min/1.73 m2 Glomerular Filtration Rate (GFR) is estimated based on the CKD-EPI Creatinine Equation (2009). Stage Description GFR 1 Normal >=90 mL/min/BSA 2 Mildly decreased GFR 60-89 mL/min/BSA 3 Moderately decreased GFR 30-59 mL/min/BSA 4 Severely decreased GFR 15-29 mL/min/BSA 5 Kidney Failure <15 mL/min/BSA Calcium 10.0 8.7 - 10.7 mg/dL 04/14/2020 6:34 PM EDT [facility] Total Protein 7.5 6.0 - 8.0 g/dL 04/14/2020 6:34 PM EDT [facility] Albumin 4.7 3.5 - 4.8 g/dL 04/14/2020 6:34 PM EDT [facility] Bilirubin, Total 0.3 0.3 - 1.2 mg/dL 04/14/2020 6:34 PM EDT [facility] Alkaline Phosphatase 59 30 - 115 U/L 04/14/2020 6:34 PM EDT [facility] AST 19 10 - 40 U/L 04/14/2020 6:34 PM EDT [facility] ALT 10 10 - 40 U/L 04/14/2020 6:34 PM EDT [facility] BUN 20 7 - 23 mg/dL 04/14/2020 6:34 PM EDT [facility] Blood Structure of peripheral vein / Unknown Venipuncture / Unknown 04/14/2020 5:46 PM EDT 04/14/2020 6:06 PM EDT Amrit Allred MD PhD LAB BLOOD ORDERABLES Fin al Result [facility] [address] [place] [address], from Last 3 Months or Most Recently Relevant to Health Maintenance Insurance MEDICARE [facility] [id number] Care Teams Customer Strategy Manager Relationship Specialty Start Date End Date Jim Jimenez [address] [place] [address] [place] [address] PCP - General Internal Medicine 04/29/19
--- OUTSIDE RECORDS SUMMARY | 2025-06-08 07:32 | XMS_ITS | Encounter Summary ---
Author Organization [facility] Address [address] [place] [address] Care Team Providers Care Junior Sales Representative Name Role Phone Jim Jimenez Primary Care Provider [phone] Encounter Details Date Type Department Care Team (Late st Contact Info) Description 04/20/2020 myChart Message [facility] [address] [place] [phone] Marce Gray MD [address] [place] [address] [place] [address] RE: Non-Urgent Medical Question Social History Tobacco [...] Description 08/05/2025 2:45 PM EST Office Visit [facility] [address] [place] [phone] Jacquie Dalton MD [address] [place] [address] Internal Medicine [place], [place] [phone] documented as of this encounter Visit Diagnoses Not on filedocumented in this encounter Care Teams Junior Sales Representative Relationship Specialty Start Date End Date Jim Jimenez [address] [place] [address] [place] [address] PCP - General Internal Medicine 04/29/19 documented as of this encounter
--- OUTSIDE RECORDS SUMMARY | 2025-06-08 07:32 | XMS_ITS | Encounter Summary ---
Author Organization [facility] Address [address] [place] [address] Care Team Providers Care Data Network Architect Name Role Phone Jim Jimenez Primary Care Provider [phone] Encounter Details Date Type Department Care Team (Late st Contact Info) Description 05/20/2020 myChart Message [facility] [address] [place] [phone] Marce Gray MD [address] [place] [address] [place] [address] RE: Test Results Question Social History Tobacco [...] [facility] [address] [place] [address] [phone] Jacquie Dalton MD [address] [place] [address] Internal Medicine [place], [place] [phone] documented as of this encounter Visit Diagnoses Not on filedocumented in this encounter Care Teams Data Network Architect Relationship Specialty Start Date End Date Jim Jimenez [address] [place] [address] [place] [address] PCP - General Internal Medicine 04/29/19 documented as of this encounter
[2025-06-08 11:20] LABS: Cholesterol 182 mg/dL (<200); HDL Cholesterol 55 mg/dL (>40); Triglycerides 109 mg/dL (<150)
== END 2025-06-08 07:30 | disposition home or self-care (01) ==
LOC: HO.HMGCLDS 07:29
PROVIDERS: PCP Physician Assistant Medical; Visit Provider Physician Assistant Medical
DX: E78.5 Hyperlipidemia, unspecified (principal); E03.9 Hypothyroidism, unspecified; R73.9 Hyperglycemia, unspecified; Z79.899 Other long term (current) drug therapy
CPT/HCPCS: 36415; 80061; 83036; 84443